=== PATIENT | male | born 1935 | race Caucasian/White ===

== ENCOUNTER 2023-12-31 22:09 | Inpatient (IN) | payer OTHER, SELFPAY ==
[2023-12-31 16:00] VITALS: BP 165/71
[2023-12-31 16:58] VITALS: BP 185/66
[2023-12-31 17:00] VITALS: BP 181/72
--- NOTE | 2023-12-31 17:37 | ED.GENMED ---
History of Present Illness
General
Chief Complaint: Breathing Problem
Time Seen by Provider: 12/31/23 17:06
History of Present Illness
History of Present Illness:
Patient is a 88-year-old male with history of A-fib on Xarelto, hypertension, hyperlipidemia presented to the emergency department shortness of breath. Patient states the past 4 to 5 days has been having dyspnea on exertion. He has been more
tired. Denies any chest pain. No nausea or vomiting. No leg swelling. He is compliant with his Xarelto. He did go to his PCP who advised him to come to the emergency room for further evaluation. He does see cardiology regularly. No weight
gain. No sick contacts. No obvious hematochezia or melena.
Past History
Past History
ED Past Medical History: Arrthythmia (afib), CHF, CVA, HTN, Hypercholesterolemia, UT and Other (Anemia, Diverticulitis, Bowel obstruction, Anemia, Colitis, Ulcers, UTi)
ED Past Surgical History: Appendectomy, Cardiac (CABG) and Orthopedic (Bilateral knee replacement)
Patient has exhibited threatening behavior?: No
Social History
Tobacco: Non-smoker
Alcohol: None
Personal:
Living: alone
Employment: Retired
Phy Exam
Physical Exam
Physical Exam:
GENERAL: in no acute distress
HEENT: normocephalic, extraocular movements intact, moist oral mucosa
NECK: normal inspection
RESPIRATORY: no respiratory distress, clear to auscultation bilaterally
CARDIOVASCULAR: regular rate and rhythm
ABDOMEN/: soft, non-distended, non-tender to palpation, no rebound or guarding
EXTREMITIES: non-tender, no edema/swelling
NEUROLOGIC: awake and alert, moves all extremities
SKIN: warm
Scores
Heart Failure Risk
Heart Failure Risk Score: Not Applicable
Course
Orders/Labs/Results
Orders:
Orders
12/31/23 16:03
Electrocardiogram (*1) Urgent
Reason for Study: Shortness of Breath
EKG- Treatment ONCE
12/31/23 17:15
CR Chest - 2 Views Urgent
Comment:
Reason For Exam: sob
12/31/23 17:39
Complete Blood Count/With Diff Urgent
Comprehensive Metabolic Panel Urgent
NT-proBNP Urgent
Comment: ADD ON
Troponin I Urgent
12/31/23 18:08
COVID-19 Antigen Urgent
Source: Nasal Swab
12/31/23 18:36
Add On- LAB Stat
Tests Added?: bnp
12/31/23 20:28
Ibuprofen [Motrin] 600 mg .ROUTE .STK-MED ONE
12/31/23 20:39
Troponin I Routine
Abnormal Lab Results
12/31/23
17:39
RBC 2.93 L 10^6/uL
(4.70-6.10)
Hgb 8.6 L g/dL
(13.0-18.0)
Hct 26.7 L %
(39.0-52.0)
MCHC 32.2 L g/dL
(33.0-37.0)
Absolute Monos (auto) 1.1 H 10^3/uL
(0.1-0.6)
Monocytes % 11.0 H %
(1.7-9.3)
BUN 29 H mg/dl
(9-20)
Creatinine 1.9 H mg/dL
(0.7-1.3)
Glucose 115 H mg/dl
(70-99)
Total Bilirubin 2.2 H mg/dl
(0.2-1.3)
Troponin I 0.042 H* ng/ml
12/31/23 17:39
12/31/23 17:39
Vital Signs
Initial and Last Documented VS:
Initial Vital Signs
Temp Pulse Resp BP Pulse Ox
98.1 F 66 16 165/71 98
12/31/23 16:00 12/31/23 16:00 12/31/23 16:00 12/31/23 16:00 12/31/23 16:00
Last Documented Vital Signs
Temp Pulse Resp BP Pulse Ox
98.1 F 65 19 181/72 96
12/31/23 16:00 12/31/23 18:45 12/31/23 18:45 12/31/23 17:00 12/31/23 18:50
MDM/Problems Addressed
Differential Diagnosis Includes:
88-year-old male with history of A-fib on Xarelto, hypertension, hyperlipidemia presenting to the emergency department dyspnea on exertion for the past 4 to 5 days. Vitals here are notable for being afebrile normal pulse ox on room air. Lungs are
clear to auscultation bilaterally. Differential is broad but dyspnea on exertion could be his anginal equivalent versus new onset CHF versus pneumonia. Less likely to be PE as he is not hypoxic or tachycardic and he is compliant with Xarelto.
Will check EKG blood work and chest x-ray. Will obtain ambulatory pulse ox.
*Critical Care Note
Total Time (30-74mins, 75-104mins- exclusive of procedures): Not Applicable
Update Note
Update Note:
Ambulatory pulse ox in the 80s with significant respiratory distress. Chest x-ray per my interpretation left-sided pleural effusion. BNP is elevated. Initial troponin is elevated though he does have history of. Will obtain delta troponin.
Discussed with hospitalist for admission who accepted.
ED Attending Note
-
Portions of this chart may have been created with voice recognition software.� Occasional wrong word or��sound alike� substitutions may have occurred due to the inherent limitations of voice recognition software.
Discharge Plan
Departure
Patient Disposition: Admit
Date of Disposition: 12/31/23
Time of Disposition: 20:30
Presentation/result/management discussed w/ accepting MD/DO: Hospitalist
Discharge Problem:
BLUNT (dyspnea on exertion)
Prescriptions:
No Action
ascorbic acid (vitamin C) [Vitamin C] 500 MG tablet
500 mg PO DAILY
finasteride 5 MG tablet
5 mg PO QPM
cholecalciferol (vitamin D3) 1,000 UNITS tablet
1,000 units PO DAILY
cyanocobalamin (vitamin B-12) 1,000 MCG tablet
1,000 mcg PO DAILY
amiodarone [Pacerone] 200 MG tablet
200 mg PO MOWEFR
aspirin 81 MG tablet,delayed release (DR/EC)
81 mg PO DAILY
Rx Instructions:
restart on 03/11
zinc 50 mg Tablet
50 mg PO DAILY
Probiotic
1 tab PO DAILY
atorvastatin 40 mg tablet
40 mg PO QPM
duloxetine 30 mg capsule,delayed release(DR/EC)
30 mg PO DAILY
Xarelto 20 mg Tablet
20 mg PO QPM
amoxicillin-pot clavulanate 500-125 mg Tablet
1 tab PO Q12 Qty: 20 0RF
Referrals:
Da Merritt MD [Family Provider] -
Interventions
Interventions:
*Risk Screen - Suicide Last Done: 12/31/23 18:50
*General Assessment Last Done: 12/31/23 18:50
*Neglect/Abuse Screening Last Done: 12/31/23 18:50
ED- Fall Risk Assessment Last Done: 12/31/23 18:50
ED- Cardiac Assessment Last Done: 12/31/23 18:50
ED- Pulmonary Assessment Last Done: 12/31/23 18:50
Discharge Date and Time
Print Language: SLOVAK
[2023-12-31 17:54] LABS: % Basophils 0.6 % (0-2); % Eosinophils 1.4 % (0-6); % Immature Granulocytes 0.2 % (0-0.5); % Lymphocytes 22.2 % (20.5-51.1); % Neutrophils 64.6 % (42.2-75.2); Absolute Basophils 0.1 10^3/uL (0-0.2); Absolute Eosinophils 0.1 10^3/uL (0-0.7); Absolute Lymphocytes 2.2 10^3/uL (1.2-3.4); Absolute Monocytes 1.1 10^3/uL (0.1-0.6); Absolute Neutrophils 6.4 10^3/uL (1.4-6.5); Hematocrit 26.7 % (39.0-52.0); Hemoglobin 8.6 g/dL (13.0-18.0); Mean Corp Hgb Conc. 32.2 g/dL (33.0-37.0); Mean Corpuscular Hgb 29.4 pg (27.0-31.0); Mean Corpuscular Volume 91.1 fL (80.0-94.0); Mean Platelet Volume 9.7 fL (7.4-10.4); Nucleated Red Blood Cells % 0 % (-); Platelet Count 310 10^3/uL (130-400); Red Blood Cell Count 2.93 10^6/uL (4.70-6.10); Red Cell Dist. Width 13.5 % (11.5-14.5); White Blood Cell Count 9.9 10^3/uL (4.8-10.8)
[2023-12-31 18:06] LABS: ALT (SGPT) 15 U/L (0-50); AST (SGOT) 26 U/L (17-59); Albumin 4.4 g/dl (3.5-5.0); Alkaline Phosphatase 119 U/L (38-126); Blood Urea Nitrogen 29 mg/dl (9-20); Calcium 8.7 mg/dl (8.4-10.2); Carbon Dioxide 24 mmol/L (22-30); Chloride 105 mmol/L (98-107); Glucose 115 mg/dl (70-99); Potassium 4.8 mmol/L (3.5-5.1); Sodium 141 mmol/L (135-145); Total Bilirubin 2.2 mg/dl (0.2-1.3); Total Protein 6.9 g/dl (6.3-8.2); eGFR 33.72
[2023-12-31 18:22] LABS: Troponin I 0.042 ng/ml
[2023-12-31 18:57] LABS: COVID-19 Antigen Negative (Negative)
[2023-12-31 20:04] LABS: NT-proBNP 2770 pg/ml
[2023-12-31] MEDS: TYLENOL 650 MG PO (20:33)
[2023-12-31 21:09] LABS: Troponin I 0.045 ng/ml
[2023-12-31 21:51] VITALS: BP 176/63
[2023-12-31 22:00] VITALS: BP 164/76
--- NOTE | 2023-12-31 22:44 | HPS.HSE ---
Family Physician
-
Family Physician: Da Merritt MD
Chief Complaint
-
SOB
History of Present Illness
Patient is an 88y M with PMH significant for ASCVD, hypertension and A-Fib who presents to ED complaining of shortness of breath with activity. Patient states that his symptoms have been present for the past week. He denies any associated chest
pain, palpitations, etc. He notes that he feels lightheaded and 'faint' during these episodes as well. He also complains of posterior headache. He denies any cough, fevers / chills or other recent symptoms. No recent medication changes.
Patient states that dyspnea is noted with any activity - even walking across a flat surface. If he is at rest he has no symptoms. He denies orthopnea, edema or weight gain.
Medical History
Past Medical History
Past Medical History: Reports Other
Additional Past Medical History:
ASCVD
Paroxysmal Atrial Fibrillation
Hyperlipidemia
Paraesophageal Hernia / Gastric Volvulus
BPH
Depression
Past Surgical History: Reports Other
Additional Past Surgical History:
CABG
Bilateral TKA
RUE Bone Stimulator
Paraesophageal Hernia Repair / Gastropexy
Cholecystectomy
Social History
Tobacco: Former Smoker (Quit many years ago.)
Alcohol: None
Drug: None
Family History
Family History: Other (Father: CAD Mother: Longevity)
Allergies / Home Medications
Allergies reflects when Allergies were last updated in [facility].
Home Medications with original date entered in [facility]
Allergy/Medication List:
Allergies
Allergy/AdvReac Type Severity Reaction Status Date / Time
No Known Allergies Allergy Verified 12/31/23 16:02
Home Medications
ascorbic acid (vitamin C) 500 mg tablet (Vitamin C) 500 mg PO DAILY Supplement 11/22/17
cholecalciferol (vitamin D3) 25 mcg (1,000 unit) tablet 1,000 units PO DAILY Supplement 03/05/20
finasteride 5 mg tablet 5 mg PO HS Urinary issue 03/05/20
cyanocobalamin (vitamin B-12) 1,000 mcg tablet 1,000 mcg PO DAILY Supplement 01/25/21
amiodarone 200 mg tablet (Pacerone) 200 mg PO MOWEFR Arrhythmia 11/02/21
aspirin 81 mg tablet,delayed release 81 mg PO DAILY Blood clot prevention/tx 11/02/21
atorvastatin 40 mg tablet 40 mg PO HS High Cholesterol 12/19/22
rivaroxaban 20 mg tablet (Xarelto) 20 mg PO QPM Blood Clot Prevention/Tx 12/20/22
Lactobac no.2-Bifidobac no.1-S. thermo 112.5 billion cell capsule (Visbiome) 1 cap PO DAILY 12/31/23
cetirizine 10 mg tablet (Zyrtec) 10 mg PO DAILY 12/31/23
duloxetine 40 mg capsule,delayed release 40 mg PO DAILY 12/31/23
magnesium oxide 500 mg PO DAILY 12/31/23
zinc sulfate 50 mg zinc (220 mg) tablet 50 mg PO DAILY 12/31/23
Review of Systems
-
History Source: Patient
A 12 point ROS was completed and negative except as noted: Yes
Constitutional: Reports Fatigue; Denies Fever, Weight Gain, Weight Loss or Chills
EENT: Denies Sore Throat
Respiratory: Reports Trouble Breathing; Denies Cough or Hemoptysis
Cardiac: Denies Chest Pain, Diaphoresis, Palpitations or Syncope
Abdomen/GI: Denies Abdominal Pain, Nausea, Vomiting or Diarrhea
: Denies Dysuria, Frequency or Flank Pain
Musculoskeletal: Reports Other (Back Pain); Denies Joint Pain or Edema
Neurological: Reports Dizzy and Headache; Denies Weakness or Numbness
Psych: Denies Depression or Anxiety
Physical Exam
Vital Signs
Vital Signs
Temp Pulse Resp BP Pulse Ox
98.1 F 44 25 164/76 100
12/31/23 16:00 12/31/23 22:15 12/31/23 22:15 12/31/23 22:00 12/31/23 22:15
Physical Exam
General: Other (88y M in no acute distress.)
HEENT: Moist mucous membranes and PERRLA
Respiratory: Other (Decreased BS with few basilar rales on the L. Otherwise clear.)
Cardiac: S1/S2, Irregular Rhythm and Murmur (III/ CAT)
GI: Soft, Non Tender, Non Distended and Normal Bowel Sounds
Musculoskeletal: No Clubbing, No Cyanosis and No Edema
Neuro: AO x 3
Laboratory Results
-
12/31/23 17:39
12/31/23 17:39
Laboratory Results
Total Bilirubin 2.2 mg/dl (0.2-1.3) H 12/31/23 17:39
AST 26 U/L (17-59) 12/31/23 17:39
ALT 15 U/L (0-50) 12/31/23 17:39
Alkaline Phosphatase 119 U/L (38-126) 12/31/23 17:39
Troponin I 0.045 ng/ml H* 12/31/23 20:35
Impression/Plan
-
A/P: Patient is an 88y M with PMH significant for ASCVD, hypertension and A-Fib who presents to ED complaining of BLUNT x 1 week.
BLUNT
Left Pleural Effusion
- Admit for further evaluation and treatment.
- ? if dyspnea appreciated with exertion is due to new L pleural effusion seen on CXR.
- Trial of IV diuresis and follow for any clinical changes.
- Cardiology evaluation / update Echo.
- Consider IR evaluation for thoracentesis.
Paroxysmal Atrial Fibrillation
- Patient in A-Fib / flutter in the ED. He denies any history of this - though it is clearly documented in his prior records.
- Monitor on telemetry.
- Continue Xarelto for stroke risk reduction.
- Cardiology evaluation as noted above.
YARA
- SCr = 1.9 compared to prior baseline of 1.1.
- ? prerenal etiology secondary to mild CHF.
- Follow for changes with trial of IV diuresis.
Normocytic Anemia
- Somewhat difficult to assess chronicity. Has had widely variable Hgb in the past - though most recent were in similar range.
- Patient has been taking ibuprofen fairly regularly for back pain and is also on Xarelto.
- Would avoid further NSAIDs / nephrotoxic medications.
- Heme test stools.
- Check iron studies, etc.
- Follow for changes in H&H.
ASCVD
- Stable. No complaints of chest pain.
- Troponin non-normal, but no EG changes c/w acute ischemia.
- Follow troponin for any changes and monitor for any new / worsening symptoms.
- Continue ASA, Xarelto, statin, etc.
BPH
- Stable. Continue Proscar.
- Bladder scan protocol.
DVT Prophylaxis: On Xarelto
Code Status: Full Code
--- NOTE | 2023-12-31 23:00 | PTCARENOTE ---
Received patient from ED via stretcher. Patient ambulated from stretcher to bed with a standby assist. No current complaints of pain, patient slightly BLUNT. Oriented to room and placed call riley within reach.
[2023-12-31 23:04] VITALS: BMI 23.5
[2023-12-31 23:05] VITALS: BP 185/73; BMI 23.5
[2023-12-31] MEDS: LIPITOR 40 MG PO (23:43)
[2023-12-31] MEDS: PACERONE 200 MG PO (23:44)
[2023-12-31] MEDS: PROSCAR 5 MG PO (23:44)
[2023-12-31 23:58] LABS: Iron 26 ug/dl (49-181); Troponin I 0.049 ng/ml
[2024-01-01] VITALS (11 sets, daily range): BP systolic 124–188; BP diastolic 51–89; O2SAT 99; BMI 23.5
[2024-01-01 00:07] LABS: Percent Saturation 7 % (20-50); Total Iron Binding Capacity 350 ug/dl (261-462)
[2024-01-01 01:00] LABS: Free T4 1.12 ng/dl (0.78-2.19)
[2024-01-01 05:45] LABS: Hemoglobin 7.4 g/dL (13.0-18.0); Mean Corp Hgb Conc. 32.2 g/dL (33.0-37.0); Mean Corpuscular Hgb 28.2 pg (27.0-31.0); Mean Corpuscular Volume 87.8 fL (80.0-94.0); Mean Platelet Volume 9.3 fL (7.4-10.4); Platelet Count 298 10^3/uL (130-400); Red Blood Cell Count 2.62 10^6/uL (4.70-6.10); Red Cell Dist. Width 13.4 % (11.5-14.5); White Blood Cell Count 8.1 10^3/uL (4.8-10.8)
[2024-01-01 06:17] LABS: Blood Urea Nitrogen 28 mg/dl (9-20); Calcium 8.9 mg/dl (8.4-10.2); Carbon Dioxide 22 mmol/L (22-30); Chloride 108 mmol/L (98-107); Estimated Creatinine Clearance 31 ml/min; Glucose 115 mg/dl (70-99); HDL Cholesterol 34 mg/dl; LDL Cholesterol, Calculated 52 mg/dl; Potassium 4.7 mmol/L (3.5-5.1); Sodium 143 mmol/L (135-145); Total Cholesterol 109 mg/dl (50-199); Triglyceride 119 mg/dl (10-149); Very Low Density Lipoprotein 23 mg/dl (0-30); eGFR 41.44
[2024-01-01 06:18] LABS: Troponin I 0.062 ng/ml
[2024-01-01] MEDS: CYMBALTA DELAYED RELEASE 40 MG PO (09:58)
--- NOTE | 2024-01-01 10:56 | W.PN.HOSP.TC ---
Today's Communication/Plan
-
Transfused
IV iron.
Hold Xarelto and aspirin.
GI evaluation.
IV PPI
Hold further Lasix.
Assessment / Plan
Assessment / Plan
Impression:
Presentation with exertional dyspnea.
Iron deficiency anemia.
Non-[place] troponin elevation
Small left pleural effusion
YARA
Subclinical hypothyroidism
Other conditions:
ASCVD.
Paroxysmal atrial fibrillation/flutter therapy
Anticoagulation with Xarelto.
BPH.
History of colitis.
History of community-acquired pneumonia.
Plan:
Exertional dyspnea. Patient reports worsening over the last week or so
Denies any chest pain or palpitations.
Stable respiratory status with no requirements for supplemental oxygen.
Chest x-ray with very minimal pleural effusions otherwise clear lung [place].
CHF BNP elevated, although not higher than baseline.
Symptomatic acute on chronic normocytic anemia with iron deficiency.
Reports occasional hematochezia while at home.
No BM since presentation.
Hemoglobin drifting down to 7s.
Hold Xarelto and aspirin
GI consultation
IV PPI.
Transfuse 1 unit of packed red blood cells and follow hemoglobin
IV iron
Check EPO level
Non-[place] troponin elevation.
ASCVD
Chest pain-free.
ECG with a flutter.
Update echocardiogram.
Continue statin
Clinically no evidence of volume overload.
Hold further diuresis
Paroxysmal atrial fibrillation/flutter.
Continue amiodarone
Hold Xarelto due to severe symptomatic anemia pending GI evaluation.
YARA.? CKD.
Creatinine 1.9�1.6.
Check urinalysis for sediment.
Bladder scan
Renal sonogram
Monitor creatinine while holding further diuresis. If further elevation consider nephrology consultation.
Subclinical hypothyroidism with TSH 5.5. Normal free T4 at 1.12. Suspect related to amiodarone
Follow-up TFT as outpatient
BPH
- Stable. Continue Proscar.
- Bladder scan protocol.
Full code.
DVT prophylaxis mechanical while holding Xarelto
Anticipated Discharge: 24 - 48 hours
Subjective/Interval History
-
Date of Service: January 01, 2024
Objective Data
-
Labs:
Laboratory Results
01/01/24
05:38
WBC 8.1
Hgb 7.4 L
Hct 23.0 L
Plt Count 298
Sodium 143
Potassium 4.7
Chloride 108 H
Carbon Dioxide 22
BUN 28 H
Creatinine 1.6 H
Glucose 115 H
Calcium 8.9
Vital Signs:
Vital Signs
Temp Pulse Resp BP Pulse Ox
98.2 F 66 20 169/78 94
01/01/24 07:43 01/01/24 07:43 01/01/24 07:43 01/01/24 07:43 01/01/24 07:43
I&O
12/31/23 01/01/24 01/02/24
06:59 06:59 06:59
Intake Total 480 / 480
Output Total 350 / 350
Balance 130 / 130
Physical Exam
-
General: Well Developed, Well Nourished and No Apparent Distress
HEENT: Normocephalic and Atraumatic; Negative Oxygen
Respiratory: Clear to Auscultation and Wheezes; Negative Rhonchi
Cardiac: Regular Rhythm and S1/S2; Negative Murmur
GI: Soft, Nontender, Nondistended and Normal Bowel Sounds
Musculoskeletal: No Clubbing, No Cyanosis and No Edema
Neuro: Awake
Psych: Calm
--- NOTE | 2024-01-01 10:59 | CON.GI ---
Addendum entered and electronically signed by Jazmín Main DO 01/01/24 14:44:
The patient was seen and examined by me independently in collaboration with the nurse practitioner.
Past medical history/social history/medications/allergies/family history reviewed.
Lab data and imaging data reviewed.
Raul Nickerson is an 88 y.o. male w/ pmhx Afib on xarelto, HTN, CAD, HLD, hx diverticulitis/diverticulosis, paraesophageal hernia c/b obstruction s/p repair and gastropexy in 2021 gallstone pancreatitis s/p cholecystectomy in October 2021, chronic iron
deficiency anemia admitted with symtpomatic anemia, found to have a hemoglobin of 8.6, which subsequently decreased to 7.4. He admits to daily NSAID use for the last week for Migraines. Admitted to in 11/2022 for abdominal pain 2/2 mild acute
diverticulitis vs. overflow diarrhea in setting of chronic constipation. He had reported hematochezia at that time, presumed due to hemorrhoids. Endoscopic evaluation deferred at that time. He had bidrectional endoscopy in 2021 which was unrevealing
for source of chronic ASHLEY, referred to hematology for IV infusions. No VCE performed for small bowel evaluation, however, high suspicion for small bowel AVMs.
Hgb on 12/19/22 10.1 at time of last GI evaluation, decreased to 8.4 --> 9.6 --> 8.3.
On arrival Hgb 8.6 with repeat of 7.4 today, Plt 87. BUN 28/Cr. 1.6. He is also noted to have elevated troponin that is rising, 0.042 --> .045 --> .049 --> .062. 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
Plan/Recommendations:
-s/p transfusion with 1 unit PRBC
-maintain 2 large-bore peripheral gauge IVs, active T&C
-PPI BID, IVF
-c/w IV Iron
-Xarelto (last dose 12/30?) and ASA held
-Recommend Enteroscopy tomorrow, if negative for source of GI bleeding, can consider repeat colonoscopy given last performed in 2021, ultimately, would require VCE (inpatient vs. outpatient based on clincial course and stability of hemoglobin). He
will continue to be at risk for recurrent GI bleeding while he remains on anticoagulation
Addendum entered and electronically signed by TASHI Maguire 01/01/24 13:44:
plan for EGD with enteroscopy in am for transfusion today
Original Note:
Consultation
-
Date/Time Consultation Requested: 01/01/24 1050
Date/Time Consultation Performed: 01/01/24 1130
Requesting Provider: Gildardo Baker MD
Performing Provider: TASHI Markham, Magdalena Main DO
Reason for Consultation: anemia
Medical History
Chief Complaint / HPI
Chief Complaint: abdominal pain
History of Present Illness:
The pt is an 87 yo male with a PMH significant for Afib on Xarelto, HTN, CAD with prior CABG, HLD, diverticulitis/diverticulosis, paraesophageal hernia with obstruction s/p repair and gastropexy 2021, gallstone pancreatitis s/p cholecystectomy in
October 2021, colon polyps with onset of shortness of breath. On admission noted with hbg 8.6 with drop to 7.4 after admission. He was also noted with small pleural effusion, BNP 2770,and elevated troponin. In reviewing with patient he followed
closely with PCP Dr. Palomino and Dr. Grande from cardiology. He admits to recent NSAID use for neck/head pain about 3-6 tablets daily for last month. He also admits to darker stools and constipation on Miralax daily but denies dysphagia, GERD,
nausea, vomiting, abdominal pain, diarrhea, or red blood in stools. Last colonoscopy 2019 with TA polyp, diverticulosis, hemorrhoids and EGD with tortuous esophagus, 10cm paraesophageal hernia with few erosion in hernia sac.
Past Medical History
Past Medical History: Arrhythmias (PAF), HTN, Hypercholesterolemia, Psychiatric (depression ) and Other (ASCVD, paraesophageal hernia, gastric volvulus, gallstone pancreatitis, hard of hearing )
Past Surgical History: Cardiac (CABG), Cholecystectomy, Orthopedic (bilateral TKA, bone stimulator RUE) and Other (paraoesophageal hernia repair with gastropexy, bone stimulator)
Social History
Tobacco: Former Smoker (only in teen years )
Alcohol: Occasional (rare )
Drug: None
Living: With Family (daughter alice )
Employment: Retired
Family History
Family History: Other (no family hx colon CA or polyps )
Allergies / Home Medications
Allergy/AdvReac Type Severity Reaction Status Date / Time
No Known Allergies Allergy Verified 12/31/23 16:02
�Medication �Instructions �Recorded
ascorbic acid (vitamin C) 500 mg 500 mg PO DAILY Supplement 11/22/17
tablet (Vitamin C)
cholecalciferol (vitamin D3) 25 1,000 units PO DAILY Supplement 03/05/20
mcg (1,000 unit) tablet
finasteride 5 mg tablet 5 mg PO HS Urinary issue 03/05/20
cyanocobalamin (vitamin B-12) 1,000 mcg PO DAILY Supplement 01/25/21
1,000 mcg tablet
amiodarone 200 mg tablet (Pacerone) 200 mg PO MOWEFR Arrhythmia 11/02/21
aspirin 81 mg tablet,delayed 81 mg PO DAILY Blood clot 11/02/21
release prevention/tx
atorvastatin 40 mg tablet 40 mg PO HS High Cholesterol 12/19/22
rivaroxaban 20 mg tablet (Xarelto) 20 mg PO QPM Blood Clot 12/20/22
Prevention/Tx
Lactobac no.2-Bifidobac no.1-S. 1 cap PO DAILY 12/31/23
thermo 112.5 billion cell capsule
(Visbiome)
cetirizine 10 mg tablet (Zyrtec) 10 mg PO DAILY 12/31/23
duloxetine 40 mg capsule,delayed 40 mg PO DAILY 12/31/23
release
magnesium oxide 500 mg PO DAILY 12/31/23
zinc sulfate 50 mg zinc (220 mg) 50 mg PO DAILY 12/31/23
tablet
Review of Systems
-
History Source: Patient
Constitutional: Reports No Symptoms
EENT: Reports No Symptoms
Respiratory: Reports No Symptoms
Cardiac: Reports No Symptoms
Abdomen/GI: Reports Constipated and Other (darker stools )
: Reports No Symptoms
Musculoskeletal: Reports No Symptoms
Skin: Reports No Symptoms
Neurological: Reports Headache (with back issue on NSAIDS )
Endocrine: Reports No Symptoms
Hematologic/Lymphatic: Reports No Symptoms
Vital Signs
Temp Pulse Resp BP Pulse Ox
98.2 F 66 20 169/78 94
01/01/24 07:43 01/01/24 07:43 01/01/24 07:43 01/01/24 07:43 01/01/24 07:43
Physical Exam
Exam
General: Well Developed, Well Nourished and No Apparent Distress
HEENT: Normocephalic and Anicteric
Respiratory: Other (decreased bases )
Cardiac: Regular Rhythm
GI: Soft, Non Tender and Non Distended
Rectal: Brown (trace heme + stool)
Musculoskeletal: No Clubbing and No Cyanosis
Skin: Warm and Dry
Neuro: Awake, Alert and AO x 3
Psych: Calm
Results
WBC 8.1 10^3/uL (4.8-10.8) 01/01/24 05:38
Hgb 7.4 g/dL (13.0-18.0) L 01/01/24 05:38
Hct 23.0 % (39.0-52.0) L 01/01/24 05:38
MCV 87.8 fL (80.0-94.0) 01/01/24 05:38
Plt Count 298 10^3/uL (130-400) 01/01/24 05:38
Absolute Neuts (auto) 6.4 10^3/uL (1.4-6.5) 12/31/23 17:39
Sodium 143 mmol/L (135-145) 01/01/24 05:38
Potassium 4.7 mmol/L (3.5-5.1) 01/01/24 05:38
Chloride 108 mmol/L (98-107) H 01/01/24 05:38
Carbon Dioxide 22 mmol/L (22-30) 01/01/24 05:38
BUN 28 mg/dl (9-20) H 01/01/24 05:38
Creatinine 1.6 mg/dL (0.7-1.3) H 01/01/24 05:38
Calcium 8.9 mg/dl (8.4-10.2) 01/01/24 05:38
Total Bilirubin 2.2 mg/dl (0.2-1.3) H 12/31/23 17:39
AST 26 U/L (17-59) 12/31/23 17:39
ALT 15 U/L (0-50) 12/31/23 17:39
Alkaline Phosphatase 119 U/L (38-126) 12/31/23 17:39
Diagnostic Image Results:
Prior GI Procedures:
EGD: 2019 [facility] with tortuous esophagus, 10cm paraesophageal hernia with few erosion in hernia sac.
Colonoscopy: [facility] with TA polyp, diverticulosis, hemorrhoids and
Assessment / Plan
-
The pt is an 87 yo male with a PMH significant for Afib on Xarelto, HTN, CAD with prior CABG, HLD, diverticulitis/diverticulosis, paraesophageal hernia with obstruction s/p repair and gastropexy 2021, gallstone pancreatitis s/p cholecystectomy in
October 2021, colon polyps with onset of shortness of breath. On admission noted with hbg 8.6 with drop to 7.4 after admission. He was also noted with small pleural effusion, BNP 2770,and elevated troponin. In reviewing with patient he followed
closely with PCP Dr. Palomino and Dr. Grande from cardiology. He admits to recent NSAID use for neck/head pain about 3-6 tablets daily for last month. He also admits to darker stools recently and constipation on Miralax daily but denies
dysphagia, GERD, nausea, vomiting, abdominal pain, diarrhea, or red blood in stools. Last colonoscopy 2019 with TA polyp, diverticulosis, hemorrhoids and EGD with tortuous esophagus, 10cm paraesophageal hernia with few erosion in hernia sac. Pt
also noted with iron 26, TIBC 350, sat 7
prior hbg with PCP 03/2023 13.7
08/2023-
-shortness of breath
-anemia with trace heme + brown stool
-recent increased NSAID use
-small pleural effusion on CXR
-elevated troponin
- paraesophageal hernia with obstruction s/p repair and gastropexy 2021
other med problems:
-afib on xarelto
-HTN
-CAD with prior CABG
-Hyperlipidemia
-diverticulitis
-hx GS panc with prior rodrigo
-colon polyps
PLAN:
etiology of shortness of breath related to anemia related to PUD with recent NSAID use and drop in hbg from on August , cardiac related with mild trop/BNP elevation vs other
current rectal with brown trace heme + stools
obtained baseline hbg over last year from PCP-- noted hbg 13 09/11/23
Xarelto hold
cont PPI daily
discussed NSAID avoidance
will review with Dr. Main for EGD 01/01
cont diet for today
reviewed with Dr. Byrd
updated daughter Evangelina on tentative plan for EGD
-
-
Thank you for consultation and allowing me to participate in the patient's care. Please call the mailing section clerk GI physician during the after hours with any questions or concerns.
--- NOTE | 2024-01-01 11:42 | CON.CAR ---
Addendum entered and electronically signed by Raul Byrd MD 01/01/24 14:02:
Creatinine has improved to 1.6. Will give Lasix after transfusion. May need to consider decreasing Xarelto dose if remains with renal insufficiency.
Addendum entered and electronically signed by Raul Byrd MD 01/01/24 13:59:
I saw and examined the patient.
The COPY WORKER or PA's note was reviewed and I agree with the note.
Comment: General: Well developed, well nourished in NAD.
Neck: Supple, no JVD, HJR, carotids +2 B/L, no bruits bilaterally.
Heart: Non displaced PMI, RRR, 2/6 basal systolic murmur, No S3, S4, no rubs.
Lungs: Scattered rhonchi
Extremities: No clubbing, cyanosis or edema bilaterally.
Neuro: Grossly nonfocal, awake, alert and oriented x3.
Leonard has a history of atrial fibrillation/atrial flutter previously on sotalol and now on amiodarone Sunday and Sunday and chronic Xarelto, GI bleed 2019. He presented with dyspnea on exertion over the last week and found to have a
hemoglobin of 7.4. Cardiology consulted for acute diastolic CHF with small left pleural effusion and proBNP of 2770. Also found to be in rate controlled atrial flutter which was present on office visit in November 2023.
Stable cardiology status for GI procedures. Endoscopy is planned. Of note echocardiogram with moderate to severe aortic stenosis which has worsened since 2021. There may be an element of CHF as well. Will treat with IV Lasix. Suspect most of
symptoms are due to severe anemia. Also patient remains in rate controlled atrial flutter with unusual dosing Sunday amiodarone. Might consider discontinuing amiodarone at some point if remains in atrial flutter or could consider
eventual cardioversion when anemia has resolved/been treated
Addendum entered and electronically signed by Loida Mars PA-C 01/01/24 13:40:
.
Original Note:
Consultation
Consultation Request
Date/Time Consultation Performed: 01/01/24
Requesting Provider: Dr. Baker
Performing Provider: Loida Mars PA-C for Dr. Byrd
Reason for Consultation: SOB, concern for CHF
Medical History
-
Chief Complaint: SOB
History of Present Illness:
Patient is an 88 yo M with PMH of paroxysmal atrial fibrillation/atrial flutter previously on sotalol, however now on amiodarone 200 mg Sunday, chronic Xarelto therapy, history of GI bleed in 2019 who presents to [facility]
for evaluation of dyspnea on exertion over the last week or so. He reports associated dizziness. He denies shortness of breath at rest. Denies chest pain, weight gain, lower extremity edema. He does state he had a 'golf ball sized' fluid
collection in his left hand which he states 'then moved to my right leg' and now is reportedly improved. He denies chronic diuretic therapy. He does report dark stools recently, however denies abdominal pain. Cardiology consulted due to concern
for component of CHF as etiology of dyspnea on exertion. Chest x-ray with small left pleural effusion. proBNP 2770. Of note hemoglobin 7.4. He has been using some NSAIDs recently for 'migraine' headaches over the last several weeks
PMH:
-paroxysmal atrial fibrillation/atrial flutter
-chronic amiodarone therapy
-chronic xarelto therapy
-CAD s/p CABG 06/2006 with FORD to LAD and SVG sequential to OM-1 and PDA
-CAD s/p Taxus to SVG to RCA 06/2006
-LAFB/RBBB
-mild
-HLD
-BPH
-GERD
-anxiety/depression
-past ETOH abuse
-CHICKALOON
-History of paraesophageal hernia repair
-h/o anemia/GI bleed felt to be secondary to Aleksandr ulcers 02/2020
Past Medical History
Past Medical History: Other (in HPI)
Social History
Tobacco: Former Smoker (remote)
Personal:
Living: With Family (daughter and son in law)
Employment: Retired
Family History
Family History: CAD
Allergies / Home Medications
Allergy/AdvReac Type Severity Reaction Status Date / Time
No Known Allergies Allergy Verified 12/31/23 16:02
�Medication �Instructions �Recorded �Confirmed �Type
ascorbic acid (vitamin C) 500 mg 500 mg PO DAILY Supplement 11/22/17 12/31/23 History
tablet (Vitamin C)
cholecalciferol (vitamin D3) 25 1,000 units PO DAILY Supplement 03/05/20 12/31/23 History
mcg (1,000 unit) tablet
finasteride 5 mg tablet 5 mg PO HS Urinary issue 03/05/20 12/31/23 History
cyanocobalamin (vitamin B-12) 1,000 mcg PO DAILY Supplement 01/25/21 12/31/23 History
1,000 mcg tablet
amiodarone 200 mg tablet (Pacerone) 200 mg PO MOWEFR Arrhythmia 11/02/21 12/31/23 History
aspirin 81 mg tablet,delayed 81 mg PO DAILY Blood clot 11/02/21 12/31/23 History
release prevention/tx
atorvastatin 40 mg tablet 40 mg PO HS High Cholesterol 12/19/22 12/31/23 History
rivaroxaban 20 mg tablet (Xarelto) 20 mg PO QPM Blood Clot 12/20/22 12/31/23 History
Prevention/Tx
Lactobac no.2-Bifidobac no.1-S. 1 cap PO DAILY 12/31/23 12/31/23 History
thermo 112.5 billion cell capsule
(Visbiome)
cetirizine 10 mg tablet (Zyrtec) 10 mg PO DAILY 12/31/23 12/31/23 History
duloxetine 40 mg capsule,delayed 40 mg PO DAILY 12/31/23 12/31/23 History
release
magnesium oxide 500 mg PO DAILY 12/31/23 12/31/23 History
zinc sulfate 50 mg zinc (220 mg) 50 mg PO DAILY 12/31/23 12/31/23 History
tablet
Review of Systems
-
History Source: Patient
All other systems: Negative unless noted
Physical Exam
Vital Signs
Temp Pulse Resp BP Pulse Ox
98 F 67 18 124/54 96
01/01/24 11:12 01/01/24 11:12 01/01/24 11:12 01/01/24 11:12 01/01/24 11:12
Lab Results
01/01/24 05:38
01/01/24 05:38
Troponin I 0.062 ng/ml H* D 01/01/24 05:38
Qkp-B-Obywzpiiolc Pept 2770 pg/ml 12/31/23 17:39
Mah-L-Eqxgernjprb Pept Cancelled 12/31/23 17:39
Physical Exam
General: No Apparent Distress, Comfortable and Other (sitting in chair)
HEENT: Normocephalic, Anicteric and Moist Mucous Membranes
Respiratory: Clear and Non Labored Respirations
Cardiac: S1/S2, Irregular Rhythm and Murmur
GI: Soft, Non Tender, Non Distended and Normal Bowel Sounds
Musculoskeletal: No Clubbing, No Cyanosis and No Edema
Skin: Warm, Dry and Other (bandage to RLE)
Neuro: AO x 3
Impression / Plan
-
Primary Technical Documentation Specialist: Dr. Lyons
Assessment:
-Presentation with BLUNT
-anemia with dark stools, concern for GI bleed
-Concern for acute CHF
-YARA
-Elevated troponin, suspected nonischemic myocardial injury
-subclinical hypothyroidism
-paroxysmal atrial fibrillation/atrial flutter
-chronic amiodarone therapy
-chronic xarelto therapy
-Chronic right bundle branch block
-CAD s/p CABG 06/2006 with FORD to LAD and SVG sequential to OM-1 and PDA
-CAD s/p Taxus to SVG to RCA 06/2006
-LAFB/RBBB
-mild
-HLD
-BPH
-GERD
-anxiety/depression
-past ETOH abuse
-CHICKALOON
-h/o anemia/GI bleed felt to be secondary to Aleksandr ulcers 02/2020
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
Echo 03/2022 at outside hospital: EF 60 to 65%, mild to moderate concentric LVH, biatrial enlargement, severe MAC, mild MS, trace MR, moderate TR, PAP 45 to 50 mmHg, mild pulmonary hypertension, mild to moderate
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
Plan:
-Patient presents to [facility] with complaints of dyspnea on exertion over the last week or so.
-Initially concern for acute CHF with proBNP of 2770 and small left pleural effusion by chest x-ray, however also with acute on chronic anemia and complaints of dark stools
-records from Dr. Lyons's office obtained and reviewed including last office visit and EKG 12/06/23, echo 04/10/22, blood work 03/31/23. hgb at time of blood work was 13.8, now 7.4
-GI consulted
-Holding outpatient Xarelto. would continue asa as able
-For transfusion today. consider 20 mg IV Lasix post transfusion and reassess volume status in a.m.
-Creatinine was elevated at 1.9 on arrival, trending down
-Last echo from 03/2022 with results as above
-Also by EKG noted to be in rate controlled atrial flutter with 4-1 AV conduction, consistent with last EKG from 12/06/[address] Lyons's office. from OP monitor in 2022, burden of AF was 0.17%.
-Currently on outpatient amiodarone 200 mg Sunday dosing. HRs controlled on review of tele
-consult wound care for eval of RLE wound
-avoid NSAIDs, possibly related to GI bleed and YARA. treatment of recent migraine headaches per primary service
-trops relatively flat, peaked at 0.062. suspect nonischemic myocardial injury in setting of anemia, YARA.
-OP follow up with Dr. Lyons
-Discussed with hospitalist
Data Reviewed
-
EKG: Tracing Personally Visualized and interpreted
Radiology: Report Reviewed by me
Medical Tests (Nuc Med, Echo etc): Report Reviewed by me
Labs: Labs Reviewed by me
Old Records: Reviewed
[2024-01-01] MEDS: NSS (PRESERVATIVE FREE) 10 ML IV (11:45)
[2024-01-01] MEDS: PROTONIX IV 40 MG IV (11:45)
[2024-01-01 12:04] LABS: Troponin I 0.053 ng/ml
--- NOTE | 2024-01-01 14:42 | CM ---
grain manager reviewed patient's chart and met with patient and patient lives with daughter and son in law in a 2 story home, patient is independent with adl's and uses a walker with ambulation, patient is currently 94% on room air. Per patient he
had DHVN in past when he injured his back.
Pharmacy; [facility]
PCP: Dr. Merritt
Plan; Home when stable, no needs.
[2024-01-01 16:24] LABS: Urine Albumin Trace (Neg - Trace); Urine Bilirubin Negative (Negative); Urine Character Clear (Clear); Urine Color Yellow; Urine Glucose Negative (Negative); Urine Ketone Negative (Negative); Urine Leukocyte Negative (Negative); Urine Nitrite Negative (Negative); Urine Occult Blood Negative (Negative); Urine Specific Gravity 1.015 (<1.030); Urine Urobilinogen Negative (Neg - 1+)
[2024-01-01] MEDS: LASIX 20 MG IV (17:03)
[2024-01-01] MEDS: FERRLECIT 110 MG IV (17:03)
[2024-01-01] MEDS: LIPITOR 40 MG PO (19:36)
[2024-01-01] MEDS: PROSCAR 5 MG PO (19:36)
[2024-01-02] VITALS (14 sets, daily range): BP systolic 105–180; BP diastolic 48–92; PULSE 61; O2SAT 97; BMI 23.1
[2024-01-02 08:15] LABS: Blood Urea Nitrogen 27 mg/dl (9-20); Calcium 8.8 mg/dl (8.4-10.2); Carbon Dioxide 24 mmol/L (22-30); Chloride 108 mmol/L (98-107); Estimated Creatinine Clearance 34 ml/min; Glucose 110 mg/dl (70-99); Potassium 4.3 mmol/L (3.5-5.1); Sodium 142 mmol/L (135-145); eGFR 44.78
[2024-01-02 08:18] LABS: % Basophils 0.6 % (0-2); % Eosinophils 2.7 % (0-6); % Immature Granulocytes 0.2 % (0-0.5); % Lymphocytes 23.1 % (20.5-51.1); % Monocytes 13.3 % (1.7-9.3); % Neutrophils 60.1 % (42.2-75.2); Absolute Basophils 0.1 10^3/uL (0-0.2); Absolute Eosinophils 0.2 10^3/uL (0-0.7); Absolute Monocytes 1.2 10^3/uL (0.1-0.6); Absolute Neutrophils 5.2 10^3/uL (1.4-6.5); Hematocrit 27.8 % (39.0-52.0); Hemoglobin 9.2 g/dL (13.0-18.0); Mean Corp Hgb Conc. 33.1 g/dL (33.0-37.0); Mean Corpuscular Hgb 29.1 pg (27.0-31.0); Mean Platelet Volume 9.7 fL (7.4-10.4); Nucleated Red Blood Cells % 0 % (-); Platelet Count 282 10^3/uL (130-400); Red Blood Cell Count 3.16 10^6/uL (4.70-6.10); Red Cell Dist. Width 13.6 % (11.5-14.5); White Blood Cell Count 8.6 10^3/uL (4.8-10.8)
[2024-01-02] MEDS: NSS (PRESERVATIVE FREE) 10 ML IV (08:58)
[2024-01-02] MEDS: CYMBALTA DELAYED RELEASE 40 MG PO (08:58)
[2024-01-02] MEDS: PROTONIX IV 40 MG IV (08:58)
--- NOTE | 2024-01-02 11:14 | W.PN.CARDCBS ---
Addendum entered and electronically signed by Carlos Gimenez DO 01/02/24 16:50:
I saw and examined the patient 10:45AM 01/02/2024.
The Tester Regulator's note was reviewed and I agree with the note.
Comment:
Plan:
For EGD. Cont to monitor H/H
Xarelto has been held
Cont amiodarone for rate control
Monitor volume status. EF preserved with mod to severe mean gradient [address] Lyons
Original Note:
Today's Communication / Plan
-
for EGD today
hgb improved
xarelto remains on hold
continue amiodarone for rate control for now
follow volume status
Impression / Plan
-
Primary Wealth Management Director: Dr. Lyons
Assessment:
-Presentation with BLUNT
-anemia with dark stools, concern for GI bleed
-Concern for acute CHF
-YARA
-Elevated troponin, suspected nonischemic myocardial injury
-subclinical hypothyroidism
-paroxysmal atrial fibrillation/atrial flutter
-chronic amiodarone therapy
-chronic xarelto therapy
-Chronic right bundle branch block
-CAD s/p CABG 06/2006 with FORD to LAD and SVG sequential to OM-1 and PDA
-CAD s/p Taxus to SVG to RCA 06/2006
-LAFB/RBBB
-mod to severe by echo 01/01/24
-HLD
-BPH
-GERD
-anxiety/depression
-past ETOH abuse
-KALTAG
-h/o anemia/GI bleed felt to be secondary to Aleksandr ulcers 02/2020
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
Echo 03/2022 at outside hospital: EF 60 to 65%, mild to moderate concentric LVH, biatrial enlargement, severe MAC, mild MS, trace MR, moderate TR, PAP 45 to 50 mmHg, mild pulmonary hypertension, mild to moderate
72 hour personnel monitor 08/2022: 3 AF episodes with burden of 0.17%
ECHO 01/01/24: EF 65-70%, mild cLVH, mild MS, peak/mean gradients 22/6 mmHg with a pressure 1/2 time of 59 ms. Mitral valve area
is 3.7 cm2. at least mild mitral regurgitation which may be underestimated due to dense MAC. Severely dilated left atrium. Moderate to severe aortic stenosis. Peak/mean gradients 47/21 mmHg. BRANDI 0.9 cm2. Moderate tricuspid regurgitation.
Estimated pulmonary artery pressure of 57 mmHg. Moderate pulmonary hypertension. Dilated right atrium. Enlarged right ventricular size. Right ventricular hypokinesis.
Plan:
-Patient presents to [facility] with complaints of dyspnea on exertion over the last week or so.
-Initially concern for acute CHF with proBNP of 2770 and small left pleural effusion by chest x-ray, however also with acute on chronic anemia and complaints of dark stools
-s/p 1 U PRBCs followed by 20mg IV lasix with improvement in hgb today to 9.2
-for EGD today
-xarelto remains on hold. continue asa as able
-avoid NSAIDs, had been taking prior to admission for migraines. possibly related to GI bleed and YARA. treatment of recent migraine headaches per primary service. Cr downtrending, 1.5 on 01/01
-Last echo from 03/2022 with results as above. echo 12/31 with preserved EF, mod to severe . will need continued OP follow up
-remains in rate controlled aflutter. was in rate controlled aflutter at last OV with Dr. Lyons 12/06/23. from OP monitor in 2022, burden of AF was 0.17%.
-Currently on outpatient amiodarone 200 mg Sunday dosing.
-consult wound care for eval of RLE wound
-trops relatively flat, peaked at 0.062. suspect nonischemic myocardial injury in setting of anemia, YARA.
-OP follow up with Dr. Lyons
Progress Note - Wealth Management Director
Subjective
Date of Service: January 02, 2024
for EGD today. no issues overnight
Objective
Labs:
01/02/24 07:07
01/02/24 07:07
Labs
Hgb 9.2 g/dL (13.0-18.0) L D 01/02/24 07:07
Hct 27.8 % (39.0-52.0) L 01/02/24 07:07
Plt Count 282 10^3/uL (130-400) 01/02/24 07:07
Sodium 142 mmol/L (135-145) 01/02/24 07:07
Potassium 4.3 mmol/L (3.5-5.1) 01/02/24 07:07
BUN 27 mg/dl (9-20) H 01/02/24 07:07
Creatinine 1.5 mg/dL (0.7-1.3) H 01/02/24 07:07
Glucose 110 mg/dl (70-99) H 01/02/24 07:07
Troponins
12/31/23 12/31/23 12/31/23
17:39 20:35 23:24
Troponin I 0.042 H* 0.045 H* 0.049 H*
01/01/24 01/01/24
05:38 11:12
Troponin I 0.062 H* D 0.053 H*
Vital Signs and I&O:
Vital Signs
Temp Pulse Resp BP Pulse Ox
97.6 F 68 20 135/55 96
01/02/24 07:35 01/02/24 07:35 01/02/24 07:35 01/02/24 07:35 01/02/24 07:35
Vital Signs
Temp Pulse Resp BP Pulse Ox
97.6 F 68 20 135/55 96
01/02/24 07:35 01/02/24 07:35 01/02/24 07:35 01/02/24 07:35 01/02/24 07:35
Intake & Output
12/31/23 01/01/24 01/02/24 01/03/24
07:59 07:59 07:59 07:59
Intake Total 480 / 480 1510 / 1510
Output Total 350 / 350 805 / 805
Balance 130 / 130 705 / 705
Physical Exam
Physical Exam
GEN: No distress, awake, alert, oriented x3
HEENT: supple, anicteric, mmm, eomi
LUNGS: CTA B/L, no wheezes/rales
CV: Irreg, S1/S2, 2/6 syst LSB
ABD: soft, BS+, NT/ND
EXT: No cyanosis, clubbing, edema
NEURO: Gross non-focal
SKIN: Warm, pink, dry. No rash
--- NOTE | 2024-01-02 11:29 | WOUNDNOTE ---
R LOWER ANTERIOR LEG
--- NOTE | 2024-01-02 11:30 | WOUNDNOTE ---
WON RN NOTE: Patient admitted for dyspnea on exertion, see complete medical history. Asked to see patient by nursing for R leg wound. Removed bandage from home, scant drainage. Patient states he accidentally banged leg on something causing it to
bleed. Appears essentially healed, silicone foam placed to protect. Heels and sacrum are intact, patient sitting in chair. Updated nurse Pat and recommend removing dressing in few days, if no drainage then leave open to air. Will sign off unless
needed.
--- NOTE | 2024-01-02 12:53 | CM ---
Chart reviewed and plan is to home no needs when stable.
Plan: Home no needs when stable.
[2024-01-02] MEDS: FERRLECIT 110 MG IV (13:53)
[2024-01-02] MEDS: PACERONE 200 MG PO (17:02)
--- NOTE | 2024-01-02 17:21 | W.PN.HOSP.TC ---
Today's Communication/Plan
-
Status post EGD
Transition to oral PPI.
Monitor hemoglobin
Increase activity with PT evaluation baseline discharge planning
Assessment / Plan
Assessment / Plan
Impression:
Presentation with exertional dyspnea.
Iron deficiency anemia.
Non-NM troponin elevation
Small left pleural effusion
YARA
Subclinical hypothyroidism
Other conditions:
ASCVD.
Paroxysmal atrial fibrillation/flutter therapy
Anticoagulation with Xarelto.
BPH.
History of colitis.
History of community-acquired pneumonia.
Plan:
Exertional dyspnea. Patient reports worsening over the last week or so
Denies any chest pain or palpitations.
Stable respiratory status with no requirements for supplemental oxygen.
Chest x-ray with very minimal pleural effusions otherwise clear lung [place].
CHF BNP elevated, although not higher than baseline.
Symptomatic acute on chronic normocytic anemia with iron deficiency.
Reports occasional hematochezia while at home.
No BM since presentation.
Hemoglobin drifting down to 7s.
Hold Xarelto and aspirin
Appropriate response to transfusion with hemoglobin up to 9.2
EGD 01/01 with gastric ulcer, nonbleeding
Transition to oral PPI twice daily.
GI follow-up as outpatient for repeat endoscopy
Continue IV iron
Check EPO level/pending
ASCVD
Non-NM troponin elevation
Chest pain-free.
ECG with a flutter.
Update echocardiogram with preserved biventricular function. Worsening now moderate aortic stenosis.
Continue statin
Clinically no evidence of volume overload.
Received additional IV Lasix with blood transfusion.
Paroxysmal atrial fibrillation/flutter.
Continue amiodarone
Hold Xarelto due to severe symptomatic anemia pending GI evaluation.
YARA.? CKD.
Creatinine 1.9�1.6.
Check urinalysis for sediment.
Bladder scan
Renal sonogram
Monitor creatinine while holding further diuresis. If further elevation consider nephrology consultation.
Subclinical hypothyroidism with TSH 5.5. Normal free T4 at 1.12. Suspect related to amiodarone
Follow-up TFT as outpatient
BPH
- Stable. Continue Proscar.
- Bladder scan protocol.
Full code.
DVT prophylaxis mechanical while holding Xarelto
Anticipated Discharge: 24 - 48 hours
Subjective/Interval History
-
Date of Service: January 02, 2024
Objective Data
-
Labs:
Laboratory Results
01/02/24
07:07
WBC 8.6
Hgb 9.2 L D
Hct 27.8 L
Plt Count 282
Sodium 142
Potassium 4.3
Chloride 108 H
Carbon Dioxide 24
BUN 27 H
Creatinine 1.5 H
Glucose 110 H
Calcium 8.8
Vital Signs:
Vital Signs
Temp Pulse Resp BP Pulse Ox
97.9 F 61 16 125/56 96
01/02/24 15:40 01/02/24 15:40 01/02/24 15:40 01/02/24 15:40 01/02/24 15:40
I&O
01/01/24 01/02/24 01/03/24
06:59 06:59 06:59
Intake Total 480 / 480 1510 / 1510
Output Total 350 / 350 805 / 805
Balance 130 / 130 705 / 705
Physical Exam
-
General: Well Developed, Well Nourished and No Apparent Distress
HEENT: Normocephalic and Atraumatic; Negative Oxygen
Respiratory: Clear to Auscultation and Wheezes; Negative Rhonchi
Cardiac: Regular Rhythm and S1/S2; Negative Murmur
GI: Soft, Nontender, Nondistended and Normal Bowel Sounds
Musculoskeletal: No Clubbing, No Cyanosis and No Edema
Neuro: Awake
Psych: Calm
[2024-01-02] MEDS: PROSCAR 5 MG PO (20:19)
[2024-01-02] MEDS: PROTONIX 40 MG PO (20:19)
[2024-01-02] MEDS: LIPITOR 40 MG PO (20:19)
[2024-01-03 04:38] VITALS: BP 129/57; BMI 23.1
[2024-01-03 07:50] VITALS: BP 123/62
[2024-01-03 07:57] LABS: % Basophils 0.7 % (0-2); % Eosinophils 3.6 % (0-6); % Immature Granulocytes 0.1 % (0-0.5); % Monocytes 11.8 % (1.7-9.3); % Neutrophils 59.8 % (42.2-75.2); Absolute Basophils 0.1 10^3/uL (0-0.2); Absolute Eosinophils 0.3 10^3/uL (0-0.7); Absolute Lymphocytes 2.2 10^3/uL (1.2-3.4); Absolute Monocytes 1.1 10^3/uL (0.1-0.6); Absolute Neutrophils 5.5 10^3/uL (1.4-6.5); Hematocrit 28.2 % (39.0-52.0); Hemoglobin 9.3 g/dL (13.0-18.0); Mean Corpuscular Hgb 29.6 pg (27.0-31.0); Mean Corpuscular Volume 89.8 fL (80.0-94.0); Mean Platelet Volume 9.7 fL (7.4-10.4); Nucleated Red Blood Cells % 0.3 % (-); Platelet Count 295 10^3/uL (130-400); Red Blood Cell Count 3.14 10^6/uL (4.70-6.10); Red Cell Dist. Width 13.7 % (11.5-14.5); White Blood Cell Count 9.1 10^3/uL (4.8-10.8)
[2024-01-03 08:20] LABS: Blood Urea Nitrogen 27 mg/dl (9-20); Calcium 8.9 mg/dl (8.4-10.2); Carbon Dioxide 24 mmol/L (22-30); Chloride 107 mmol/L (98-107); Estimated Creatinine Clearance 36 ml/min; Glucose 110 mg/dl (70-99); Potassium 4.4 mmol/L (3.5-5.1); Sodium 143 mmol/L (135-145); eGFR 48.65
[2024-01-03] MEDS: CYMBALTA DELAYED RELEASE 40 MG PO (08:42)
[2024-01-03] MEDS: PROTONIX 40 MG PO (08:42)
--- NOTE | 2024-01-03 10:45 | PN.CDI ---
CDI
- -
CDI:
Physician Documentation Request
Admit Date: 12/31/23 22:09
Dear Doctor Samuel,
Please review the following and provide your response in the progress notes.
Clinical Indicators:
Pt admitted with Symptomatic acute on chronic normocytic anemia with iron deficiency.
Progress notes 12/31 & 01/01,' Symptomatic acute on chronic normocytic anemia with iron deficiency.Reports occasional hematochezia while at home....Paroxysmal atrial fibrillation/flutter....Hold Xarelto due to severe symptomatic anemia pending GI
evaluation....'
EGD indication, ' Acute posthemorrhagic anemia..'
Please clarify the relationship between these conditions:
Yes, _ABLA/GI bleed __ is related to/associated with/exacerbated by _Xarelto use __.
No, _ABLA/GI Bleed __ is not related to/associated with/exacerbated by Xarelto use ___ but it is due to ___. (Please specify)
Unable to determine
Use of terms such as suspected, likely, concern for, or probable (associated with a specific diagnosis that is being evaluated, monitored, or treated as if it exists) are acceptable and can be coded in the inpatient setting, when documented at the
time of discharge.
Thank you,
Gunjan Watts RN
CDI Specialist
[place] [facility]
Please use your independent medical judgment in providing your response.
--- NOTE | 2024-01-03 10:52 | PN.CDI ---
CDI
- -
CDI:
Physician Documentation Request
Admit Date: 12/31/23 22:09
Dear Doctor Jose David,
Please review the following and provide your response in the progress notes.
Clinical Indicators:
Pt admitted with Symptomatic acute on chronic normocytic anemia with iron deficiency/GI bleed /ABLA
Documented per EGD report, ' One non-bleeding cratered gastric ulcer with a clean ulcer base (Aden
Class III) was found in the gastric body. The lesion was 1 mm in largest.... K25.9, Gastric ulcer, unspecified as acute or chronic, without hemorrhage or perforation...'
Clarify which of the following accurately represents the Suspected acuity of the (Gastric Ulcer)
Acute
Chronic
Other
Use of terms such as suspected, likely, concern for, or probable (associated with a specific diagnosis that is being evaluated, monitored, or treated as if it exists) are acceptable and can be coded in the inpatient setting, when documented at the
time of discharge.
Thank you,
Gunjan Watts RN
CDI Specialist
[facility]
Please use your independent medical judgment in providing your response.
[2024-01-03 11:30] VITALS: BP 125/53
--- NOTE | 2024-01-03 12:23 | W.PN.CARDCBS ---
Addendum entered and electronically signed by Carlos Gimenez DO 01/03/24 17:31:
I saw and examined the patient.
The Front Office Help's note was reviewed and I agree with the note.
Comment:
Plan:
Xarelto being resumed tonight
Stable cv status
Cont Amiodarone outpt dosing
Outpt follow up with Dr Lyons
Original Note:
Today's Communication / Plan
-
xarelto to resume tonight
continue amiodarone 200mg MWF
OP follow up with Dr. Lyons
Impression / Plan
-
Primary Road Traffic Controller: Dr. Lyons
Assessment:
-Presentation with BLUNT
-anemia with dark stools, concern for GI bleed
-Concern for acute CHF
-YARA
-Elevated troponin, suspected nonischemic myocardial injury
-subclinical hypothyroidism
-paroxysmal atrial fibrillation/atrial flutter
-chronic amiodarone therapy
-chronic xarelto therapy
-Chronic right bundle branch block
-CAD s/p CABG 06/2006 with FORD to LAD and SVG sequential to OM-1 and PDA
-CAD s/p Taxus to SVG to RCA 06/2006
-LAFB/RBBB
-mod to severe by echo 01/01/24
-HLD
-BPH
-GERD
-anxiety/depression
-past ETOH abuse
-SIOUX
-h/o anemia/GI bleed felt to be secondary to Aleksandr ulcers 02/2020
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
Echo 03/2022 at outside hospital: EF 60 to 65%, mild to moderate concentric LVH, biatrial enlargement, severe MAC, mild MS, trace MR, moderate TR, PAP 45 to 50 mmHg, mild pulmonary hypertension, mild to moderate
72 hour gambling monitor 08/2022: 3 AF episodes with burden of 0.17%
ECHO 01/01/24: EF 65-70%, mild cLVH, mild MS, peak/mean gradients 22/6 mmHg with a pressure 1/2 time of 59 ms. Mitral valve area
is 3.7 cm2. at least mild mitral regurgitation which may be underestimated due to dense MAC. Severely dilated left atrium. Moderate to severe aortic stenosis. Peak/mean gradients 47/21 mmHg. BRANDI 0.9 cm2. Moderate tricuspid regurgitation.
Estimated pulmonary artery pressure of 57 mmHg. Moderate pulmonary hypertension. Dilated right atrium. Enlarged right ventricular size. Right ventricular hypokinesis.
Plan:
-Presented with dyspnea on exertion and found to have acute on chronic anemia with dark stools.
-EGD 01/01 with evidence of gastric ulcer. treatment per GI
-Status post 1 unit packed red blood cells with stable hemoglobin of 9.3 overnight
-Per GI note, okay to resume Xarelto tonight
-avoid NSAIDs, had been taking prior to admission for migraines. possibly related to GI bleed and YARA. treatment of recent migraine headaches per primary service. Cr downtrending, 1.4 on 01/02
-Last echo from 03/2022 with results as above. echo 12/31 with preserved EF, mod to severe . will need continued OP follow up
-remains in rate controlled aflutter. was in rate controlled aflutter at last OV with Dr. Lyons 12/06/23. from OP monitor in 2022, burden of AF was 0.17%.
-Currently on outpatient amiodarone 200 mg Sunday dosing.
-trops relatively flat, peaked at 0.062. suspect nonischemic myocardial injury in setting of anemia, YARA.
-OP follow up with Dr. Lyons
-d/w nursing
Progress Note - Road Traffic Controller
Subjective
Date of Service: January 03, 2024
No issues overnight
Objective
Labs:
01/03/24 07:35
01/03/24 07:35
Labs
Hgb 9.3 g/dL (13.0-18.0) L 01/03/24 07:35
Hct 28.2 % (39.0-52.0) L 01/03/24 07:35
Plt Count 295 10^3/uL (130-400) 01/03/24 07:35
Sodium 143 mmol/L (135-145) 01/03/24 07:35
Potassium 4.4 mmol/L (3.5-5.1) 01/03/24 07:35
BUN 27 mg/dl (9-20) H 01/03/24 07:35
Creatinine 1.4 mg/dL (0.7-1.3) H 01/03/24 07:35
Glucose 110 mg/dl (70-99) H 01/03/24 07:35
Troponins
12/31/23 12/31/23 12/31/23
17:39 20:35 23:24
Troponin I 0.042 H* 0.045 H* 0.049 H*
01/01/24 01/01/24
05:38 11:12
Troponin I 0.062 H* D 0.053 H*
Vital Signs and I&O:
Vital Signs
Temp Pulse Resp BP Pulse Ox
97.7 F 67 20 125/53 97
01/03/24 11:30 01/03/24 11:30 01/03/24 11:30 01/03/24 11:30 01/03/24 11:30
Vital Signs
Temp Pulse Resp BP Pulse Ox
97.7 F 67 20 125/53 97
01/03/24 11:30 01/03/24 11:30 01/03/24 11:30 01/03/24 11:30 01/03/24 11:30
Intake & Output
01/01/24 01/02/24 01/03/24 01/04/24
07:59 07:59 07:59 07:59
Intake Total 480 / 480 1510 / 1510 480 / 480
Output Total 350 / 350 805 / 805 600 / 600
Balance 130 / 130 705 / 705 -120 / -120
Physical Exam
Physical Exam
GEN: No distress, awake, alert, oriented x3
HEENT: supple, anicteric, mmm, eomi
LUNGS: CTA B/L, no wheezes/rales
CV: Irreg, S1/S2, 2/6 syst LSB
ABD: soft, BS+, NT/ND
EXT: No cyanosis, clubbing, edema
NEURO: Gross non-focal
SKIN: Warm, pink, dry. No rash
[2024-01-03 14:16] LABS: Erythropoietin (EPO) 168 mU/mL (4-27)
--- NOTE | 2024-01-03 14:26 | W.DS.TRANS ---
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
-
Discharge Instructions:
Sleep Apnea Risk Intermediate
Discharge Diagnosis/Procedures Impression:
Presentation with exertional dyspnea.
PUD, new diagnosis
Iron deficiency anemia.
Non-DC troponin elevation
Small left pleural effusion
YARA
Subclinical hypothyroidism
Other conditions:
ASCVD.
Paroxysmal atrial fibrillation/flutter therapy
Anticoagulation with Xarelto.
BPH.
History of colitis.
History of community-acquired pneumonia.
Blood Work BMP, CBC in one week
Instructions:
Stand-Alone Forms:
Changes to Home Medications: Yes
Discharge Medications:
DC Medications w/original date entered in [facility] [employer]
ascorbic acid (vitamin C) 500 mg tablet (Vitamin C) 500 mg PO DAILY Supplement 11/22/17
cholecalciferol (vitamin D3) 25 mcg (1,000 unit) tablet 1,000 units PO DAILY Supplement 03/05/20
finasteride 5 mg tablet 5 mg PO HS Urinary issue 03/05/20
cyanocobalamin (vitamin B-12) 1,000 mcg tablet 1,000 mcg PO DAILY Supplement 01/25/21
amiodarone 200 mg tablet (Pacerone) 200 mg PO MOWEFR Arrhythmia 11/02/21
atorvastatin 40 mg tablet 40 mg PO HS High Cholesterol 12/19/22
rivaroxaban 20 mg tablet (Xarelto) 20 mg PO QPM Blood Clot Prevention/Tx 12/20/22
Lactobac no.2-Bifidobac no.1-S. thermo 112.5 billion cell capsule (Visbiome) 1 cap PO DAILY 12/31/23
cetirizine 10 mg tablet (Zyrtec) 10 mg PO DAILY 12/31/23
duloxetine 40 mg capsule,delayed release 40 mg PO DAILY 12/31/23
magnesium oxide 500 mg PO DAILY 12/31/23
zinc sulfate 50 mg zinc (220 mg) tablet 50 mg PO DAILY 12/31/23
pantoprazole 40 mg tablet,delayed release 40 mg PO BID #60 tabs 01/03/24
Home Medication Changes
PPI imitated.
Pending Results: No
[2024-01-03 15:00] VITALS: BP 163/69
--- NOTE | 2024-01-03 15:15 | CM ---
Recommendation from PT for home PT. CM met with Mr. Nickerson at bedside; he is agreeable, and previously had home care, but was not sure of the agency, stating they did a good job. CM looked at past records and found that he had [facility] previously.
Patient referred to [facility] for home PT and OT.
CM spoke with pt's son on the telephone and provided directions to get to the car pick up driver area near [facility]. He will call his father when he arrives, anticipating a 4pm arrival.
Plan: Discharge to home with home PT and OT with [facility].
--- NOTE | 2024-01-03 15:46 | VNURNOTE ---
Home Health Liaison met with patient at bedside to discuss [facility] therapy, visits, schedule and homebound status. Patient is agreeable and understands that visits at home will be 2-3 x per week for home PT/OT. Does not appear to have a skilled nurse
need. [facility] brochure provided with contact information. Patient is aware that [facility] will contact them for start of care in 1-2 days after discharge from .
[facility] referral completed in [facility].
--- NOTE | 2024-01-09 11:37 | W.PN.UPDATE ---
Update Note
Progress Note Update
*Clinical Documentation
Acute gastric ulcer
== END 2024-01-03 16:14 | disposition home health service (06) | DRG 377 ==
LOC: 4 EAST ACU 22:09
PROVIDERS: Student in an Organized Health Care Education/Training Program; ADMITTING PHYSICIAN Hospitalist; ATTENDING PHYSICIAN Internal Medicine; CONSULT PHYSICIAN Internal Medicine; CONSULT PHYSICIAN Internal Medicine Cardiovascular Disease; EMERGENCY PHYSICIAN Student in an Organized Health Care Education/Training Program; FAMILY PHYSICIAN Internal Medicine
PROC: 30233N1 Transfusion of Nonautologous Red Blood Cells into Peripheral Vein, Percutaneous Approach (ICD-10-PCS; 2024-01-01)
PROC: 0DJ08ZZ Inspection of Upper Intestinal Tract, Via Natural or Artificial Opening Endoscopic (ICD-10-PCS; 2024-01-02)
DX: K25.0 Acute gastric ulcer with hemorrhage (principal); I50.31 Acute diastolic (congestive) heart failure; D62 Acute posthemorrhagic anemia; N17.9 Acute kidney failure, unspecified; I48.92 Unspecified atrial flutter; I5A Non-ischemic myocardial injury (non-traumatic); I13.0 Hypertensive heart and chronic kidney disease with heart failure and stage 1 through stage 4 chronic kidney disease, or unspecified chronic kidney disease; J91.8 Pleural effusion in other conditions classified elsewhere; D68.32 Hemorrhagic disorder due to extrinsic circulating anticoagulants; I27.20 Pulmonary hypertension, unspecified; D50.9 Iron deficiency anemia, unspecified; E03.8 Other specified hypothyroidism; F32.A Depression, unspecified; I35.0 Nonrheumatic aortic (valve) stenosis; F10.11 Alcohol abuse, in remission; N18.9 Chronic kidney disease, unspecified; T45.515A Adverse effect of anticoagulants, initial encounter; I48.0 Paroxysmal atrial fibrillation; Z79.01 Long term (current) use of anticoagulants; E78.00 Pure hypercholesterolemia, unspecified; F41.9 Anxiety disorder, unspecified; G43.909 Migraine, unspecified, not intractable, without status migrainosus; I25.10 Atherosclerotic heart disease of native coronary artery without angina pectoris; Z95.1 Presence of aortocoronary bypass graft; I45.10 Unspecified right bundle-branch block; K21.9 Gastro-esophageal reflux disease without esophagitis; K44.9 Diaphragmatic hernia without obstruction or gangrene; K64.9 Unspecified hemorrhoids; N40.0 Benign prostatic hyperplasia without lower urinary tract symptoms; Z96.653 Presence of artificial knee joint, bilateral; R06.02 Shortness of breath; R06.09 Other forms of dyspnea; Z79.82 Long term (current) use of aspirin; Z79.899 Other long term (current) drug therapy; Z87.19 Personal history of other diseases of the digestive system; Z87.891 Personal history of nicotine dependence; Z86.010 Personal history of colon polyps; Z86.73 Personal history of transient ischemic attack (TIA), and cerebral infarction without residual deficits; Z87.440 Personal history of urinary (tract) infections; Z87.01 Personal history of pneumonia (recurrent); Z82.49 Family history of ischemic heart disease and other diseases of the circulatory system
CPT/HCPCS: 71046; 76770; 80048; 80053; 80061; 81003; 82668; 83540; 83550; 83880; 84439; 84443; 84484; 85025; 85027; 86850; 86900; 86901; 86920; 87811; 93005; 93306; 97116; 97162; 97166; 97530; 99285; J2916; P9016

== ENCOUNTER 2024-02-28 12:05 | Emergency (ER) | payer OTHER, SELFPAY ==
[2024-02-28] VITALS (7 sets, daily range): BP systolic 123–153; BP diastolic 46–63; BMI 25.6
[2024-02-28 12:55] LABS: % Basophils 0.9 % (0-2); % Eosinophils 1.2 % (0-6); % Immature Granulocytes 0.3 % (0-0.5); % Lymphocytes 26.4 % (20.5-51.1); % Monocytes 9.2 % (1.7-9.3); Absolute Basophils 0.1 10^3/uL (0-0.2); Absolute Eosinophils 0.1 10^3/uL (0-0.7); Absolute Lymphocytes 1.8 10^3/uL (1.2-3.4); Absolute Monocytes 0.6 10^3/uL (0.1-0.6); Absolute Neutrophils 4.3 10^3/uL (1.4-6.5); Hematocrit 27.6 % (39.0-52.0); Hemoglobin 8.8 g/dL (13.0-18.0); Mean Corp Hgb Conc. 31.9 g/dL (33.0-37.0); Mean Corpuscular Hgb 27.3 pg (27.0-31.0); Mean Corpuscular Volume 85.7 fL (80.0-94.0); Mean Platelet Volume 9.4 fL (7.4-10.4); Nucleated Red Blood Cells % 0 % (-); Platelet Count 299 10^3/uL (130-400); Red Blood Cell Count 3.22 10^6/uL (4.70-6.10); White Blood Cell Count 6.9 10^3/uL (4.8-10.8)
[2024-02-28 13:04] LABS: ALT (SGPT) 16 U/L (0-50); AST (SGOT) 24 U/L (17-59); Albumin 4.5 g/dl (3.5-5.0); Alkaline Phosphatase 136 U/L (38-126); Blood Urea Nitrogen 38 mg/dl (9-20); Carbon Dioxide 22 mmol/L (22-30); Chloride 105 mmol/L (98-107); Estimated Creatinine Clearance 26 ml/min; Glucose 137 mg/dl (70-99); Potassium 4.4 mmol/L (3.5-5.1); Sodium 141 mmol/L (135-145); Total Protein 7.3 g/dl (6.3-8.2); eGFR 33.72
[2024-02-28 13:17] LABS: NT-proBNP 2310 pg/ml; Troponin I 0.044 ng/ml
--- NOTE | 2024-02-28 13:51 | ED.GENMED ---
History of Present Illness
General
Chief Complaint: Abnormal Lab Value
Source: patient
Exam Limitations: none
Time Seen by Provider: 02/28/24 12:36
History of Present Illness
History of Present Illness:
88-year-old male on Xarelto with history of coronary artery disease, A-fib presents complaining of fatigue shortness of breath ongoing for the past several days. He was seen as an outpatient by the family doctor yesterday and labs were drawn. He
was called today and told his kidney function was abnormal and he was anemic and he had elevated cardiac enzymes. He denies chest pain. No recent fever or cough. No prior history of CHF. No vomiting. No abdominal pain. No other complaints. He
denies dark or tarry stools
Past History
Past History
ED Past Medical History: Arrthythmia (afib), CHF, CVA, HTN, Hypercholesterolemia, MS and Other (Anemia, Diverticulitis, Bowel obstruction, Anemia, Colitis, Ulcers, UTi)
ED Past Surgical History: Appendectomy, Cardiac (CABG) and Orthopedic (Bilateral knee replacement)
Patient has exhibited threatening behavior?: No
Social History
Tobacco: Non-smoker
Alcohol: None
Personal:
Living: alone
Employment: Retired
Phy Exam
Physical Exam
Physical Exam:
General: Well-appearing male no acute respiratory
HEENT: Normocephalic atraumatic
Heart: Regular rate and rhythm no murmurs
Lungs: Clear no obvious rales
Extremities: No cyanosis skin: Warm no rash
Course
Orders/Labs/Results
Orders:
Orders
02/28/24 12:09
Electrocardiogram (*1) Urgent
Reason for Study: Other
Other Reason for Exam: Respiratory Distress
EKG- Treatment ONCE
02/28/24 12:27
Complete Blood Count/With Diff Urgent
Comprehensive Metabolic Panel Urgent
NT-proBNP Urgent
Troponin I Urgent
02/28/24 13:18
CR Chest - 2 Views Urgent
Comment:
Reason For Exam: sob
02/28/24 15:20
Troponin I Urgent
Abnormal Lab Results
02/28/24 02/28/24
12:27 15:20
RBC 3.22 L 10^6/uL
(4.70-6.10)
Hgb 8.8 L g/dL
(13.0-18.0)
Hct 27.6 L %
(39.0-52.0)
MCHC 31.9 L g/dL
(33.0-37.0)
RDW 16.0 H %
(11.5-14.5)
BUN 38 H mg/dl
(9-20)
Creatinine 1.9 H mg/dL
(0.7-1.3)
Glucose 137 H mg/dl
(70-99)
Alkaline Phosphatase 136 H U/L
(38-126)
Troponin I 0.044 H* ng/ml 0.035 H* ng/ml
02/28/24 12:27
02/28/24 12:27
Vital Signs
Initial and Last Documented VS:
Initial Vital Signs
Temp Pulse Resp BP Pulse Ox
98.3 F 63 19 129/62 98
02/28/24 12:06 02/28/24 12:06 02/28/24 12:06 02/28/24 12:06 02/28/24 12:06
Last Documented Vital Signs
Temp Pulse Resp BP Pulse Ox
98.3 F 61 21 153/63 98
02/28/24 12:06 02/28/24 16:00 02/28/24 16:00 02/28/24 16:00 02/28/24 15:45
MDM/Problems Addressed
Differential Diagnosis Includes:
Fatigue with shortness of breath. Consider anemia versus electrolyte abnormality versus pneumonia or CHF.
Will check labs. Chest x-ray pending. Vital signs are stable in the room
*Critical Care Note
Total Time (30-74mins, 75-104mins- exclusive of procedures): Not Applicable
Update Note
Update Note:
Patient reevaluated still stable feels well he ambulated here without difficulty. No hypoxia upon ambulation. Repeat troponin slightly improved. He is always elevated with his troponin. Kidney functions are always elevated as this is anemia is
always low. Chronic findings on today's workup no indication for admission. No evidence of ACS. Patient accompanied with daughter. Discussed disposition from here they wish to try to go home and follow-up with her doctors.
ED Attending Note
-
Portions of this chart may have been created with voice recognition software.� Occasional wrong word or��sound alike� substitutions may have occurred due to the inherent limitations of voice recognition software.
Discharge Plan
Departure
Patient Disposition: Home (Routine Discharge)
Date of Disposition: 02/28/24
Time of Disposition: 16:41
Patient with high blood pressure during this ER visit?: No
Discharge Problem:
Fatigue
Instructions: Dehydration, Adult (DC)
Prescriptions:
No Action
ascorbic acid (vitamin C) [Vitamin C] 500 MG tablet
500 mg PO DAILY
finasteride 5 MG tablet
5 mg PO HS
cholecalciferol (vitamin D3) 1,000 UNITS tablet
1,000 units PO DAILY
cyanocobalamin (vitamin B-12) 1,000 MCG tablet
1,000 mcg PO DAILY
amiodarone [Pacerone] 200 MG tablet
200 mg PO MOWEFR
atorvastatin 40 mg tablet
40 mg PO HS
cetirizine [Zyrtec] 10 mg Tablet
10 mg PO DAILY
zinc sulfate 50 mg zinc (220 mg) Tablet
50 mg PO DAILY
magnesium oxide 500 mg magnesium Tablet
500 mg PO DAILY
Visbiome 112.5 billion cell Capsule
1 cap PO DAILY
duloxetine 40 mg Capsule,Delayed Release(Dr/Ec)
40 mg PO DAILY
polyethylene glycol 3350 [Miralax] 17 gram Powder In Packet
17 g PO HS
acetaminophen [Tylenol Extra Strength] 500 mg Tablet
1,000 mg PO Q6HPRN PRN (Reason: mild pain/headache)
Xarelto 15 mg Tablet
15 mg PO DAILY
pantoprazole 40 mg tablet,delayed release (DR/EC)
40 mg PO BID
Referrals:
Da Merritt MD [Family Provider] -
Activity Restrictions/Additional Instructions:
Rest. Stay hydrated peer return here for worsening symptoms otherwise follow-up with your doctors
Interventions
Interventions:
*Risk Screen - Suicide Last Done: 02/28/24 12:06
*General Assessment Last Done: 02/28/24 12:06
*Neglect/Abuse Screening Last Done: 02/28/24 12:06
ED- Fall Risk Assessment Last Done: 02/28/24 12:47
*ED COVID-19 Vaccine History Last Done: 02/28/24 12:24
Discharge Date and Time
Print Language: HEBREW
[2024-02-28 16:07] LABS: Troponin I 0.035 ng/ml
== END 2024-02-28 17:04 | disposition home or self-care (01) ==
LOC: EMR 12:05
PROVIDERS: Emergency Medicine; Physician Assistant; EMERGENCY PHYSICIAN Emergency Medicine; FAMILY PHYSICIAN Internal Medicine
DX: R53.83 Other fatigue (principal); R06.02 Shortness of breath; I25.10 Atherosclerotic heart disease of native coronary artery without angina pectoris; I48.91 Unspecified atrial fibrillation; D64.9 Anemia, unspecified; I11.0 Hypertensive heart disease with heart failure; I50.9 Heart failure, unspecified; I25.2 Old myocardial infarction; Z79.01 Long term (current) use of anticoagulants; E78.00 Pure hypercholesterolemia, unspecified; Z86.73 Personal history of transient ischemic attack (TIA), and cerebral infarction without residual deficits; Z95.1 Presence of aortocoronary bypass graft
CPT/HCPCS: 99285; 71046; 80053; 83880; 84484; 85025; 93005

== ENCOUNTER 2024-03-05 11:34 | Emergency (ER) | payer OTHER, SELFPAY ==
[2024-03-05] VITALS (8 sets, daily range): BP systolic 121–188; BP diastolic 49–82; PULSE 62–65; BMI 23.9
--- NOTE | 2024-03-05 12:31 | ED.GENMED ---
History of Present Illness
General
Chief Complaint: Breathing Problem
Source: patient and family
Exam Limitations: none
Time Seen by Provider: 03/05/24 11:49
Nursing documentation reviewed up to this point in time: agreed with
History of Present Illness
History of Present Illness:
88-year-old male with past medical history of previous GI bleeds A-fib currently on Xarelto, hypertension hyperlipidemia presenting to the emergency department today with concerns of intermittent red blood when wiping over the past month but also
increasing shortness of breath lightheadedness generalized weakness with exertion worsening over the past month. Had labs drawn 2 days ago that showed decreasing hemoglobin. Denies specific chest pain shortness of breath at rest at this point. No
numbness or weakness no injuries. No abdominal pain at any point.
Past History
Past History
ED Past Medical History: Arrthythmia (afib), CHF, CVA, HTN, Hypercholesterolemia, AR and Other (Anemia, Diverticulitis, Bowel obstruction, Anemia, Colitis, Ulcers, UTi)
ED Past Surgical History: Appendectomy, Cardiac (CABG) and Orthopedic (Bilateral knee replacement)
Patient has exhibited threatening behavior?: No
Social History
Tobacco: Non-smoker
Alcohol: None
Personal:
Living: alone
Employment: Retired
Review of Systems
Review of Systems
Allergies reviewed?: Yes
All Other Systems: ROS reviewed and negative except as documented in HPI and ROS
Phy Exam
Physical Exam
Physical Exam:
GENERAL: Alert , in no apparent distress
EYE: pupils equal and reactive
NECK: Supple, no significant adenopathy.
ENT: o/p clr, mmm.
CARDIAC: Regular rate and rhythm .
LUNGS: Clear breath sounds bilaterally, no acute respiratory distress, no wheezes/rales/rhonchi
ABDOMEN: Rectal examination with brown stool guaiac negative. Soft, without focal tenderness, no r/g, no cvat
NEUROLOGICAL: Alert and oriented, no focal neuro deficits
SKIN: Warm and dry, skin intact.
MUSCULOSKELETAL: No edema, well perfused.
PSYCH: Normal and appropriate interaction.
Scores
Heart Failure Risk
Heart Failure Risk Score: Not Applicable
Course
Orders/Labs/Results
Orders:
Orders
03/05/24 11:55
EKG [Electrocardiogram (*1)] Urgent
Reason for Study: Fatigue / Weakness
EKG- Treatment ONCE
03/05/24 12:24
Type+Screen Urgent
CBC/With Diff [Complete Blood Count/With Diff] Urgent
03/05/24 12:59
Chest [CR Chest - 2 Views ] Urgent
Comment:
Reason For Exam: sob
03/05/24 14:14
Comprehensive Metabolic Panel Urgent
Urinalysis Reflex To Culture Urgent
Date Specimen was Collected: 03/05/24
Time Specimen was Collected: 14:02
Abnormal Lab Results
03/05/24 03/05/24
12:24 14:14
RBC 3.01 L 10^6/uL
(4.70-6.10)
Hgb 8.3 L g/dL
(13.0-18.0)
Hct 26.0 L %
(39.0-52.0)
MCHC 31.9 L g/dL
(33.0-37.0)
RDW 15.7 H %
(11.5-14.5)
Absolute Monos (auto) 0.8 H 10^3/uL
(0.1-0.6)
Monocytes % 10.8 H %
(1.7-9.3)
Chloride 108 H mmol/L
(98-107)
Carbon Dioxide 21 L mmol/L
(22-30)
BUN 30 H mg/dl
(9-20)
Creatinine 1.5 H mg/dL
(0.7-1.3)
Glucose 112 H mg/dl
(70-99)
Alkaline Phosphatase 130 H U/L
(38-126)
03/05/24 12:24
03/05/24 14:14
Vital Signs
Initial and Last Documented VS:
Initial Vital Signs
Temp Pulse Resp BP Pulse Ox
98.2 F 68 16 121/49 98
03/05/24 11:36 03/05/24 11:36 03/05/24 11:36 03/05/24 11:36 03/05/24 11:36
Last Documented Vital Signs
Temp Pulse Resp BP Pulse Ox
98.2 F 64 21 125/57 99
03/05/24 11:36 03/05/24 14:30 03/05/24 14:30 03/05/24 14:26 03/05/24 14:30
MDM/Problems Addressed
MDM/Problems Addressed:
88-year-old male presenting to the emergency department today with concerns of red blood when wiping over the past month has had worsening exertional shortness of breath lightheadedness and weakness over that period of time as well. On examination
patient stools brown and guaiac negative. Denies any symptoms at rest. Symptoms patient was walked here with normal pulse ox did not feel lightheaded during a few minutes of walking. Labs showing hemoglobin of 8.3 which is a 1 point drop over the
past 2 months. Otherwise labs unremarkable at patient's baseline normal urinalysis chest x-ray without acute emergent findings. Patient previous echo was reviewed. He was advised for close cardiology follow-up, GI follow-up and primary care
follow-up. At this point no indication for admission to the hospital strict return precautions were discussed he demonstrated understanding and agreement.
*Critical Care Note
Total Time (30-74mins, 75-104mins- exclusive of procedures): Not Applicable
ED Attending Note
-
Portions of this chart may have been created with voice recognition software.� Occasional wrong word or��sound alike� substitutions may have occurred due to the inherent limitations of voice recognition software.
Discharge Plan
Departure
Patient Disposition: Home (Routine Discharge)
Date of Disposition: 03/05/24
Time of Disposition: 15:35
Patient with high blood pressure during this ER visit?: No
Condition: Good
Covid-19: Not Applicable
Discharge Problem:
BLUNT (dyspnea on exertion)
Instructions: Shortness of Breath (Dyspnea) (DC)
Prescriptions:
New
ferrous sulfate 325 mg (65 mg iron) tablet
325 mg PO DAILY 14 Days Qty: 14 0RF
No Action
ascorbic acid (vitamin C) [Vitamin C] 500 MG tablet
500 mg PO DAILY
finasteride 5 MG tablet
5 mg PO HS
cholecalciferol (vitamin D3) 1,000 UNITS tablet
1,000 units PO DAILY
cyanocobalamin (vitamin B-12) 1,000 MCG tablet
1,000 mcg PO DAILY
amiodarone [Pacerone] 200 MG tablet
200 mg PO MOWEFR
atorvastatin 40 mg tablet
40 mg PO HS
cetirizine [Zyrtec] 10 mg Tablet
10 mg PO HS
zinc sulfate 50 mg zinc (220 mg) Tablet
50 mg PO DAILY
magnesium oxide 500 mg magnesium Tablet
500 mg PO DAILY
Visbiome 112.5 billion cell Capsule
1 cap PO DAILY
duloxetine 40 mg Capsule,Delayed Release(Dr/Ec)
40 mg PO DAILY
pantoprazole 40 mg tablet,delayed release (DR/EC)
40 mg PO BID
clopidogrel 75 mg tablet
75 mg PO HS
acetaminophen 325 mg Tablet
650 mg PO Q4H PRN (Reason: pain/headache)
Referrals:
Da Merritt MD [Family Provider] -
Activity Restrictions/Additional Instructions:
You came to the emergency department today with concerns of shortness of breath. Here you did have reassuring labs your hemoglobin was slightly lower than before please take iron once daily and follow-up closely for repeated labs within the next
week. Otherwise follow-up with cardiology and your GI doctor. Return to the emergency department for any worsening, new or concerning symptoms.
Interventions
Interventions:
*Risk Screen - Suicide Last Done: 03/05/24 11:36
*General Assessment Last Done: 03/05/24 11:36
*Neglect/Abuse Screening Last Done: 03/05/24 11:36
ED- Fall Risk Assessment Last Done: 03/05/24 12:22
*ED COVID-19 Vaccine History Last Done: 03/05/24 12:21
ED- Cardiac Assessment Last Done: 03/05/24 14:38
ED- Pulmonary Assessment Last Done: 03/05/24 12:22
Discharge Date and Time
Print Language: TRISTANIAN
[2024-03-05 12:40] LABS: % Basophils 0.7 % (0-2); % Eosinophils 1.5 % (0-6); % Immature Granulocytes 0.1 % (0-0.5); % Lymphocytes 21.1 % (20.5-51.1); % Monocytes 10.8 % (1.7-9.3); % Neutrophils 65.8 % (42.2-75.2); Absolute Basophils 0.1 10^3/uL (0-0.2); Absolute Eosinophils 0.1 10^3/uL (0-0.7); Absolute Lymphocytes 1.6 10^3/uL (1.2-3.4); Absolute Monocytes 0.8 10^3/uL (0.1-0.6); Hemoglobin 8.3 g/dL (13.0-18.0); Mean Corp Hgb Conc. 31.9 g/dL (33.0-37.0); Mean Corpuscular Hgb 27.6 pg (27.0-31.0); Mean Corpuscular Volume 86.4 fL (80.0-94.0); Mean Platelet Volume 9.5 fL (7.4-10.4); Nucleated Red Blood Cells % 0 % (-); Platelet Count 287 10^3/uL (130-400); Red Blood Cell Count 3.01 10^6/uL (4.70-6.10); Red Cell Dist. Width 15.7 % (11.5-14.5); White Blood Cell Count 7.6 10^3/uL (4.8-10.8)
--- NOTE | 2024-03-05 13:58 | PHANOTE ---
Patient reported that he had been taking xarelto 15mg daily until discontinued by PCP 5 days ago. Patient stated that his last dose was taken on 02/29/24.
[2024-03-05 14:46] LABS: Urine Albumin Negative (Neg - Trace); Urine Bilirubin Negative (Negative); Urine Character Clear (Clear); Urine Color Yellow; Urine Glucose Negative (Negative); Urine Ketone Negative (Negative); Urine Leukocyte Negative (Negative); Urine Nitrite Negative (Negative); Urine Occult Blood Negative (Negative); Urine Urobilinogen Negative (Neg - 1+); Urine pH 6.5 (5.0-9.0)
[2024-03-05 15:06] LABS: ALT (SGPT) 17 U/L (0-50); AST (SGOT) 32 U/L (17-59); Albumin 4.4 g/dl (3.5-5.0); Alkaline Phosphatase 130 U/L (38-126); Blood Urea Nitrogen 30 mg/dl (9-20); Calcium 8.9 mg/dl (8.4-10.2); Carbon Dioxide 21 mmol/L (22-30); Chloride 108 mmol/L (98-107); Estimated Creatinine Clearance 34 ml/min; Glucose 112 mg/dl (70-99); Sodium 140 mmol/L (135-145); Total Protein 7.2 g/dl (6.3-8.2); eGFR 44.78
== END 2024-03-05 16:23 | disposition home or self-care (01) ==
LOC: EMR 11:34
PROVIDERS: Physician Assistant; EMERGENCY PHYSICIAN Emergency Medicine; FAMILY PHYSICIAN Internal Medicine
DX: R06.09 Other forms of dyspnea (principal); R71.0 Precipitous drop in hematocrit; E78.00 Pure hypercholesterolemia, unspecified; I11.0 Hypertensive heart disease with heart failure; I50.9 Heart failure, unspecified; I48.91 Unspecified atrial fibrillation; Z79.01 Long term (current) use of anticoagulants; Z86.73 Personal history of transient ischemic attack (TIA), and cerebral infarction without residual deficits
CPT/HCPCS: 99285; 71046; 80053; 81003; 85025; 86850; 86900; 86901; 93005

== ENCOUNTER 2024-03-12 06:08 | Day surgery (SDC) | payer OTHER, SELFPAY ==
[2024-03-12] VITALS (18 sets, daily range): BP systolic 135–185; BP diastolic 45–83; BMI 27.3
[2024-03-12 06:52] LABS: Hematocrit 28.6 % (39.0-52.0); Hemoglobin 8.8 g/dL (13.0-18.0); Mean Corp Hgb Conc. 30.8 g/dL (33.0-37.0); Mean Corpuscular Hgb 26.8 pg (27.0-31.0); Mean Corpuscular Volume 87.2 fL (80.0-94.0); Mean Platelet Volume 9.6 fL (7.4-10.4); Platelet Count 331 10^3/uL (130-400); Red Blood Cell Count 3.28 10^6/uL (4.70-6.10); Red Cell Dist. Width 15.9 % (11.5-14.5); White Blood Cell Count 8.8 10^3/uL (4.8-10.8)
[2024-03-12 07:10] LABS: ALT (SGPT) 16 U/L (0-50); AST (SGOT) 24 U/L (17-59); Albumin 4.3 g/dl (3.5-5.0); Alkaline Phosphatase 141 U/L (38-126); Blood Urea Nitrogen 35 mg/dl (9-20); Calcium 8.7 mg/dl (8.4-10.2); Carbon Dioxide 24 mmol/L (22-30); Chloride 108 mmol/L (98-107); Estimated Creatinine Clearance 24 ml/min; Glucose 126 mg/dl (70-99); Potassium 4.4 mmol/L (3.5-5.1); Sodium 146 mmol/L (135-145); Total Bilirubin 0.7 mg/dl (0.2-1.3); eGFR 35.98
[2024-03-12] MEDS: LOW STRENGTH ASPIRIN 81 MG PO (07:16)
--- NOTE | 2024-03-12 09:30 | ITS.CL.CATH ---
Pneumatic Tester - Catheterization
Cardiac Catheterization
Procedure Report:
CARDIAC CATHETERIZATION REPORT
Date of Procedure: 03/12/2024
Referring: Adrián Lyons M.D.
Indication: Increasing dyspnea on exertion, known coronary artery disease status post bypass, progressive aortic valve stenosis.
PROCEDURE:
1. Right heart catheterization.
2. Left heart catheterization.
3. Coronary angiography.
4. Bypass angiography.
5. Aortic valve interrogation.
ACCESS:
6 Swiss left radial artery.
5 Swiss left antecubital vein using a modified Seldinger technique under ultrasound guidance.
CATHETERS:
1. 5 Swiss balloon wedge.
2. 5 Swiss JL 3.5.
3. 5 Swiss JR4.
4. 5 Swiss LEONARD.
6. 6 Swiss Cheshire dual-lumen pigtail catheter.
HEMODYNAMIC DATA
Weight (kg): 71.7
AO (s/d/x mmHg): 204/91/129
LV (s/x mmHg): 210/25
PCWP (a/v/x mmHg): 30/57/26
PA (s/d/x mmHg): 81/33/49
RV (s/x mmHg): 81/15
RA (a/v/x mmHg): 16/19/15
SVC SvO2 (%): 61.3
PA SvO2 (%): 54.4
SaO2 (%): 92.0
Hbg (g/dL): 7.7
CO (L/min): 5.01
CI (L/min/m2): 2.83
TPG (mmHg): 23
PVR (Singh Units): 4.59
SVR (dynes*seconds*cm^-5): 1820
AVO2 Diff (Volume %): 3.94
AV gradient (x, mmHg): 13.29
AV area (cm2): 1.8
LEFT VENTRICULOGRAPHY: Performed in an CABRAL projection. Mild left ventricular dilation. There is mild global hypokinesis with mildly reduced systolic function. LV ejection fraction estimated at 45%. There is no mitral valve regurgitation. There
is no aortic valve insufficiency.
CORONARY ANGIOGRAPHY
Dominance: Right.
Left Main: Normal size, bifurcating vessel. There is a 60-70% tapering of the distal vessel leading into the LAD and circumflex.
LAD: Normal size vessel giving rise to 1 significant diagonal. The proximal vessel is severely calcified. There is a 90% lesion in the proximal LAD. The mid LAD is chronically totally occluded. The mid and distal LAD are supplied by a patent
FORD graft.
Ramus: Congenitally absent.
Circumflex: Normal size, nondominant vessel. The vessel is chronically totally occluded in its proximal margin. The obtuse marginal is supplied by patent sequential vein graft.
RCA: Normal size, dominant vessel with an anterior origin. Angiography performed with a nonselective injection due to difficulty engaging. The vessel is diffusely diseased and chronically occluded in its distal margin. The RPDA is supplied by
patent sequential vein graft.
BYPASS GRAFT ANGIOGRAPHY
FORD to LAD: Normal size graft with end-to-side anastomosis to the mid LAD. There is no evidence of stenosis or graft degeneration.
SVG to RPDA to OM: Normal size graft with [id number] anastomosis to the RPDA and end-to-side anastomosis to the obtuse marginal. A patent stent is visible in the proximal graft. There is no further evidence of stenosis or graft degeneration.
INTERVENTIONS
None.
Closure Device: Vascular band for the left radial artery, manual pressure for the left antecubital vein.
Radiation dose (mGy): 437.83
DAP (cm2.Gy): 34. 6552
Fluoroscopy time (minutes): 8.2
Sedation time (minutes): 24
CONCLUSIONS:
1. Right dominant circulation with chronic total occlusion of the distal RCA, chronic total occlusion of the left circumflex, 60-70% tapering of the distal left main, a 90% proximal LAD lesion and chronic total occlusion of the mid LAD status post
prior bypass (patent FORD to LAD, patent sequential SVG to RPDA to OM) with patent stent in the proximal SVG.
2. Severely elevated filling pressures (LVEDP = 25 mmHg, PCWP = 26 mmHg at 71.7 kg).
3. Mild reduction in systolic function, LVEF estimated at 45% with mild global hypokinesis.
4. Mild aortic valve stenosis (mean gradient = 13.29 mmHg, estimated valve area = 1.8 cm�).
5. 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
6. Significant arterial hypertension while in the Pneumatic Tester. In consultation with his daughter, it is revealed that this is likely due to anxiety as the patient's blood pressures are typically 110/60 at home.
RECOMMENDATIONS:
1. Expectant management after cardiac catheterization via left radial and antecubital approach.
2. Limited weight bearing on the left wrist for one week.
3. Start furosemide 40 mg p.o. daily for severely elevated filling pressures.
4. Careful outpatient monitoring of arterial blood pressure for risk factor modification and appropriate titration of GDMT.
5. Continue high-dose, high potency statin.
6. Continue to hold rivaroxaban. At this time, we will discontinue aspirin and clopidogrel given his peptic ulcer disease and upcoming EGD.
7. BMP and CBC in 1 week to monitor renal function in light of diuretic initiation and progressive anemia.
8. Outpatient echocardiogram.
Copy to: Adrián Lyons M.D., Da Merritt M.D.
Raul Greenfield DO, FACC, FACP
[2024-03-12] MEDS: LASIX 40 MG IV (09:40)
== END 2024-03-12 16:12 | disposition home or self-care (01) ==
LOC: CATH 06:08
PROVIDERS: ATTENDING PHYSICIAN Internal Medicine Cardiovascular Disease; FAMILY PHYSICIAN Internal Medicine; OTHER PHYSICIAN Internal Medicine Cardiovascular Disease
DX: I25.10 Atherosclerotic heart disease of native coronary artery without angina pectoris (principal); R06.09 Other forms of dyspnea; I35.0 Nonrheumatic aortic (valve) stenosis; I48.91 Unspecified atrial fibrillation; I11.0 Hypertensive heart disease with heart failure; I50.9 Heart failure, unspecified; E78.00 Pure hypercholesterolemia, unspecified; I25.2 Old myocardial infarction; Z95.1 Presence of aortocoronary bypass graft; Z87.891 Personal history of nicotine dependence; Z79.02 Long term (current) use of antithrombotics/antiplatelets; Z79.82 Long term (current) use of aspirin
CPT/HCPCS: 80053; 85027; 93461; C1894; Q9967

== ENCOUNTER 2024-04-18 06:23 | Day surgery (SDC) | payer OTHER, SELFPAY | END 2024-04-18 12:06 | disposition home or self-care (01) | LOC: GI 06:23 | PROVIDERS: ATTENDING PHYSICIAN Internal Medicine | DX: K22.89 Other specified disease of esophagus (principal); K31.89 Other diseases of stomach and duodenum; K29.70 Gastritis, unspecified, without bleeding; Z87.11 Personal history of peptic ulcer disease | CPT/HCPCS: 43235 ==

== ENCOUNTER 2024-06-19 02:00 | Inpatient (IN) | payer OTHER, SELFPAY ==
[2024-06-18 22:33] VITALS: BP 115/45
[2024-06-18 22:58] LABS: % Basophils 0.3 % (0-2); % Eosinophils 0.2 % (0-6); % Immature Granulocytes 0.4 % (0-0.5); % Lymphocytes 8.5 % (20.5-51.1); % Monocytes 11.4 % (1.7-9.3); % Neutrophils 79.2 % (42.2-75.2); Absolute Immature Granulocytes 0.1 10^3/uL (0-0.05); Absolute Lymphocytes 1.2 10^3/uL (1.2-3.4); Absolute Monocytes 1.6 10^3/uL (0.1-0.6); Absolute Neutrophils 11.3 10^3/uL (1.4-6.5); Hematocrit 24.1 % (39.0-52.0); Hemoglobin 7.4 g/dL (13.0-18.0); Mean Corp Hgb Conc. 30.7 g/dL (33.0-37.0); Mean Corpuscular Hgb 24.9 pg (27.0-31.0); Mean Corpuscular Volume 81.1 fL (80.0-94.0); Mean Platelet Volume 9.5 fL (7.4-10.4); Nucleated Red Blood Cells % 0.3 % (-); Platelet Count 428 10^3/uL (130-400); Red Blood Cell Count 2.97 10^6/uL (4.70-6.10); Red Cell Dist. Width 16.9 % (11.5-14.5); White Blood Cell Count 14.3 10^3/uL (4.8-10.8)
[2024-06-18 23:24] LABS: NT-proBNP 4970 pg/ml; Troponin I 0.095 ng/ml
[2024-06-18 23:28] VITALS: BMI 22.2
--- NOTE | 2024-06-18 23:30 | EDRN ---
Pt says he has had sob since this morning. Pt feels it is hard to breathe while lying on stretcher. Pt notes a pounding headache that started couple weeks ago 'My head goes round and round.' Son-in-law (FAIZAN) says he checked a pulse ox at home and
it was 80%, usually in high 90's, SBP 155. Pt started plavix 3-4 weeks ago and stopped his aspirin. Pt has had intermittent abd pain for past few weeks. Pt did no eat dinner tonight because he did not feel like eating. Pt has felt cold. No cp,
n/v/d/c, fever/cough, urinary symptoms. No blood in stools. Pt with known bleeding ulcer that was treated.
[2024-06-18 23:32] LABS: ALT (SGPT) 17 U/L (0-50); AST (SGOT) 27 U/L (17-59); Albumin 4.9 g/dl (3.5-5.0); Alkaline Phosphatase 159 U/L (38-126); Blood Urea Nitrogen 43 mg/dl (9-20); Calcium 9.5 mg/dl (8.4-10.2); Carbon Dioxide 19 mmol/L (22-30); Chloride 100 mmol/L (98-107); Estimated Creatinine Clearance 22 ml/min; Glucose 162 mg/dl (70-99); Potassium 5.1 mmol/L (3.5-5.1); Sodium 137 mmol/L (135-145); Total Bilirubin 2.3 mg/dl (0.2-1.3); Total Protein 7.6 g/dl (6.3-8.2); eGFR 25.48
[2024-06-18 23:52] VITALS: BP 132/57
[2024-06-19] VITALS (54 sets, daily range): BP systolic 100–147; BP diastolic 37–85; BMI 21.9
[2024-06-19] MEDS: CORDARONE 103 MG IV ×2 (00:06→01:06)
--- NOTE | 2024-06-19 00:10 | EDRN ---
Pt given 150mg amiodarone IVP per VO Dr Warner which he put in comment section of the order signed off as given. Pharmacy informed, waiting for IV infusion of amiodarone.
--- NOTE | 2024-06-19 00:20 | ED.GENMED ---
History of Present Illness
General
Chief Complaint: Breathing Problem
Source: patient, records, family and previous hospital records
Exam Limitations: clinical condition
Time Seen by Provider: 06/18/24 23:55
Nursing documentation reviewed up to this point in time: agreed with
History of Present Illness
History of Present Illness:
88-year-old male A-fib CAD cardiomyopathy renal insufficiency presents with fatigue weakness shortness of breath for few weeks had an outpatient Holter monitor just turned in yesterday has had some headaches is starting Plavix, history of GI
bleeding, some near syncopal events with no head trauma by report takes amiodarone 200 Sunday only new medication is Plavix, here looks to be in a wide-complex rhythm, correlating with his symptoms
Past History
Past History
ED Past Medical History: Arrthythmia (afib), CHF, CVA, HTN, Hypercholesterolemia, NE and Other (Anemia, Diverticulitis, Bowel obstruction, Anemia, Colitis, Ulcers, UTi)
ED Past Surgical History: Appendectomy, Cardiac (CABG) and Orthopedic (Bilateral knee replacement)
Patient has exhibited threatening behavior?: No
Social History
Tobacco: Non-smoker
Alcohol: None
Personal:
Living: alone
Employment: Retired
Review of Systems
Review of Systems
All Other Systems: Not applicable
Constitutional: Reports fatigue; Denies fever
Respiratory: Reports trouble breathing
Cardiac: Reports palpitations and syncope; Denies chest pain or diaphoresis
Musculoskeletal: Reports no symptoms
Neurological: Reports dizzy, headache and weakness
Phy Exam
Physical Exam
Physical Exam:
Physical Exam
General: Ill-appearing male
Neck: No tongue bite no overt signs of head or neck
Heart: Irregular
Lungs: Tachypneic no wheeze
Abdomen: Not
Neuro: alert and oriented. no focal neurological deficits
Skin: no rash
Psychiatric: well kept. interactive and cooperative
Extremities: Edema is from
Scores
Heart Failure Risk
Heart Failure Risk Score: Not Applicable
Course
Orders/Labs/Results
Orders:
Orders
06/18/24 22:42
Electrocardiogram (*1) Urgent
Reason for Study: Shortness of Breath
EKG- Treatment ONCE
06/18/24 22:50
Complete Blood Count/With Diff Urgent
Comprehensive Metabolic Panel Urgent
Magnesium Urgent
Comment: ADD ON
NT-proBNP Urgent
Troponin I Urgent
06/18/24 23:51
Type And Crossmatch [Type+Screen] Urgent
06/19/24 00:01
Amiodarone [Cordarone] 150 mg .ROUTE .STK-MED ONE
06/19/24 00:02
Add On- LAB Urgent
Tests Added?: magnesium
CR Chest Portable - 1 View Urgent
Comment:
Reason For Exam: sob
Reason Study Needs to be Portable: Patient Unstable
06/19/24 00:03
Bladder Scan- Treatment ONCE
06/19/24 00:07
Amiodarone [Cordarone] 150 mg Dextrose 5%/Water 100 ml [D5w] 100 ml IV NOW
06/19/24 00:15
Amiodarone [Cordarone] 900 mg DEXTROSE 5% PVC-free BAG [D5W PVC-free BAG] 500 ml IV PER PROTOCOL
Initial Dose in mg/min:: 1
Duration of initial dose (hours):: 6
Subsequent dose in mg/min:: 0.5
Duration of subsequent dose (hours):: 18
Maximum dose in mg/min:: 1
Hold and notify provider if:: Heart rate < 60 BPM or SBP < 90 mmHg or MAP < 60 mmHg
06/19/24 00:45
0.9% Sodium Chloride 1000 ml [Nss] 1,000 ml IV 125 mls/hr
06/19/24 01:05
Amiodarone [Cordarone] 150 mg .ROUTE .STK-MED ONE
Amiodarone [Cordarone] 150 mg Dextrose 5%/Water 100 ml [D5w] 100 ml IV NOW
06/19/24 01:26
Admit/Transfer Patient As Directed
Co-Sign Provider:
Level of Care: Inpatient admission
Assign to:: ICU
Physician / Group: Wu
Diagnosis: VT / Arrhythmia
Reason for Hospitalization: VT / Arrhythmia
Expected length of stay greater than two midnights?: Yes
ELOS- Estimated Length of Stay in days: 3
I certify the patient meets the requirements for IP care: Yes
PRN Pain Medication Management As Directed
May give lesser potent ordered pain med per pt: Yes
preference::
Protocol:: Medication orders for pain may be administered in a
manner that supports deferring to patient preference
when the pt is:
- Requesting an ordered lesser potent pain medication.
Least to most potent pain medications are defined
as: acetaminophen < NSAID < tramadol < opioids
(morphine, oxycodone, hydromorphone).
- Requesting a lesser dose of the same medication IF
ORDERED.
- Requesting a less intrusive route of administration
if both routes are prescribed by the provider (PO <
IV).
06/19/24 01:28
Code Status As Directed
Resuscitation Status: Full Code
06/19/24 02:09
Lactic Acid Q6H
Troponin I Q6H
Acetaminophen [Tylenol] 650 mg PO Q4HPRN PRN
Heparin 30093 Units/250 ml 25,000 units in 250 ml IV PER PROTOCOL
Weight to be used for heparin protocol in kilograms (kg):: 70.2
Protocol:: Cardiac Tx/Acute Coronary
PTT Goal Range to be used:: PTT 73 to 111 seconds
Order type:: Initial
INITIAL Infusion Dose (UNITS/KG/hr) & then follow protocol:: 12 units/kg/hr
Infusion Dose in UNITS/hr & then follow protocol (UNITS/hr):: 850
INFUSION RATE in mL/hr & then follow protocol (mL/hr):: 8.5
PTT less than or equal to 64 seconds:: Increase rate by 200 units/hr (+ 2 mL/hr)
PTT 64.1 to 72.9 seconds:: Increase rate by 100 units/hr (+ 1 mL/hr)
PTT 73 to 111 seconds:: Target Range. No change in rate.
PTT 111.1 to 130.9 seconds:: Decrease rate by 100 units/hr (- 1 mL/hr)
PTT 131 to 199.9 seconds:: HOLD for 1 hr. Then decrease rate by 200 units/hr (- 2 mL/hr)
PTT greater than or equal to 200 seconds:: HOLD for 2 hrs & Notify Provider. Then decrease by 200 units/hr (-
2 mL/hr)
Lab follow-up:: Each change, PTT q6h until 2 consecutive are therapeutic. Then PTT
daily.
06/19/24 02:09
Blood Bank Products [* Blood Bank Products] Urgent
Dr's Orders: Transfuse 1 unit PRBCs
Blood Bank Products: *Packed RBC Leuko(PRBC's)
Quantity: 1
Transfuse Today: Yes
Reason: Anemia
Echo 2D MMode Doppler [Echo 2D MMode Color/Doppler] Routine
Reason for Study: VT / Arrhythmia
CARDIOLOGY CONSULT Routine
Consulting Provider: Carlos Gimenez
Was physician already notified: Yes
Reason for consult: VT / Arrhythmia
Consult Notification Routine
Specialty to Notify: Medical Assistant Instructor
Medical Assistant Instructor Consult Routine
Consulting Provider: Hank George
Was physician already notified: No
Reason for consult: VT / Arrhythmia
Complete Blood Count/No Diff Urgent
Comment: Obtain baseline before beginning heparin infusion if not already collected
PTT Urgent
Comment: Obtain baseline before beginning heparin infusion if not already collected
TSH Reflex To Free T4 Routine
Heparin Protocol- PTT Orders As Directed
PTT per Heparin protocol: -Obtain CBC and baseline PTT - if not already collected.
-Obtain PTT 6 hours from start of infusion. Then, every 6 hours until 2 consecutive
PTT's are therapeutic. Then, PTT Daily.
-With each rate change, obtain PTT every 6 hours until 2 consecutive PTT's are
therapeutic. Then, PTT Daily.
Activity As Directed
Activity Level: Bedrest
Bladder Scan As Directed
Follow Bladder Retention/Intermittent Cath Algorithm?: Yes
PRN if no void in __ hours: 6
Frequency: Per Retention Algorithm
If Bladder Scan Result >: 400
then:: Straight cath
EKG with chest pain [ECG as needed] As Directed
ECG as needed for:: Chest Pain
Hemetest Stools As Directed
I/O [Intake/ Output] As Directed
Frequency: Per unit guidelines
Notify MD As Directed
Notify physician if: PTT is greater than or equal to 200.
Straight Cath As Directed
Frequency: Per Retention Algorithm
Additional Instructions: straight cath as needed per acute urinary retention algorithm for 24 hrs
Additional Instructions: for bladder scan greater than 400 mL
Vital Signs As Directed
Frequency: Per unit guidelines
Weight As Directed
Frequency: Daily
CR Elbow - Right Min 3 Views Routine
Comment:
Reason For Exam: Pain / swelling
Oxygen Therapy [O2 Therapy] [RESP] Routine
Titrate/Wean O2 to maintain O2 sat greater than (%): 94
06/19/24 06:00
EKG [Electrocardiogram (*1)] IN AM
Reason for Study: Chest Pain
NPO
Allow oral meds: Yes
Allow clear liquids: Sips of Clears
Basic Metabolic Panel IN AM
Complete Blood Count/No Diff IN AM
Magnesium IN AM
06/19/24 08:00
Aspirin Chewable [Low Strength Aspirin] 81 mg PO DAILY
Furosemide [Lasix] 40 mg IV DAILY
Pantoprazole [Protonix IV] 40 mg IV BID
06/19/24 08:09
Lactic Acid Q6H
Troponin I Q6H
06/19/24 14:09
Troponin I Q6H
06/21/24 06:00
Complete Blood Count/No Diff Q2D
Comment: Notify MD if platelet count is <130,000 or decreases by 50% from baseline
06/23/24 06:00
Complete Blood Count/No Diff Q2D
Comment: Notify MD if platelet count is <130,000 or decreases by 50% from baseline
06/25/24 06:00
Complete Blood Count/No Diff Q2D
Comment: Notify MD if platelet count is <130,000 or decreases by 50% from baseline
06/27/24 06:00
Complete Blood Count/No Diff Q2D
Comment: Notify MD if platelet count is <130,000 or decreases by 50% from baseline
06/29/24 06:00
Complete Blood Count/No Diff Q2D
Comment: Notify MD if platelet count is <130,000 or decreases by 50% from baseline
07/01/24 06:00
Complete Blood Count/No Diff Q2D
Comment: Notify MD if platelet count is <130,000 or decreases by 50% from baseline
07/03/24 06:00
Complete Blood Count/No Diff Q2D
Comment: Notify MD if platelet count is <130,000 or decreases by 50% from baseline
07/05/24 06:00
Complete Blood Count/No Diff Q2D
Comment: Notify MD if platelet count is <130,000 or decreases by 50% from baseline
Abnormal Lab Results
06/18/24 06/18/24
22:50 23:51
WBC 14.3 H 10^3/uL
(4.8-10.8)
RBC 2.97 L 10^6/uL
(4.70-6.10)
Hgb 7.4 L g/dL
(13.0-18.0)
Hct 24.1 L %
(39.0-52.0)
MCH 24.9 L pg
(27.0-31.0)
MCHC 30.7 L g/dL
(33.0-37.0)
RDW 16.9 H %
(11.5-14.5)
Plt Count 428 H 10^3/uL
(130-400)
Abs Immat Gran (auto) 0.1 H 10^3/uL
(0-0.05)
Absolute Neuts (auto) 11.3 H 10^3/uL
(1.4-6.5)
Absolute Monos (auto) 1.6 H 10^3/uL
(0.1-0.6)
Neutrophils % 79.2 H %
(42.2-75.2)
Lymphocytes % 8.5 L %
(20.5-51.1)
Monocytes % 11.4 H %
(1.7-9.3)
Carbon Dioxide 19 L mmol/L
(22-30)
BUN 43 H mg/dl
(9-20)
Creatinine 2.4 H mg/dL
(0.7-1.3)
Glucose 162 H mg/dl
(70-99)
Magnesium 2.5 H mg/dl
(1.6-2.3)
Total Bilirubin 2.3 H mg/dl
(0.2-1.3)
Alkaline Phosphatase 159 H U/L
(38-126)
Troponin I 0.095 H* ng/ml
Crossmatch IS Only See Detail
06/18/24 22:50
06/18/24 22:50
Vital Signs
Initial and Last Documented VS:
Initial Vital Signs
Temp Pulse Resp BP Pulse Ox
98.6 F 104 26 115/45 100
06/18/24 22:33 06/18/24 22:33 06/18/24 22:33 06/18/24 22:33 06/18/24 22:33
Last Documented Vital Signs
Temp Pulse Resp BP Pulse Ox
98.6 F 41 22 118/43 94
06/18/24 22:33 06/19/24 01:45 06/19/24 01:45 06/19/24 01:42 06/19/24 01:45
*Radiology
Radiology exam reviewed: preliminary read by ED provider
*Pulse Oximetry
Patient hypoxic: no
*EKG
Interpreted by ED Provider?: Yes
Interpretation: abnormal
Comparison EKG: no comparison EKG present
Heart Rate: 48
Rate: normal
Rhythm: a-fib
Ischemia: non-specific ST changes
*Forestry Supervisor Interpretation
Rate: tachycardiac
Interpretation: abnormal
Heart Rate: 140
Rhythm: other (PT)
*Critical Care Note
Total Time (30-74mins, 75-104mins- exclusive of procedures): 45
Update Note
Update Note:
Update complicated past medical history, prior records briefly reviewed, looks like he has runs of VT versus AF with aberrancy treated with IV amiodarone here also looks like he is in renal insufficiency possibly heart failure, lastly his hemoglobin
is low chronic issue denies any dark or bloody stools has given his consent for blood,
Update chest x-ray noted does not look like heart failure although he does have lower extremity edema oxygenating well will start on saline hydration hold his diuretic for now check bladder scan also will check rectal exam for occult blood
Confirmed his advance directive full code
Update another run of VT for since he received a bolus drip is going in this point we will hold on CT of the head and cervical spine he has no overt signs of trauma do not believe he is can go to lie flat
ED Attending Note
-
Portions of this chart may have been created with voice recognition software.� Occasional wrong word or��sound alike� substitutions may have occurred due to the inherent limitations of voice recognition software.
Discharge Plan
Departure
Patient Disposition: Admit
Date of Disposition: 06/19/24
Time of Disposition: 01:11
Admit to: ICU
Presentation/result/management discussed w/ accepting MD/DO: Hospitalist
Patient with high blood pressure during this ER visit?: No
Condition: Serious
Covid-19: Not Applicable
Discharge Problem:
Ventricular tachycardia (paroxysmal), Hiatal hernia, Paroxysmal atrial fibrillation, Essential (primary) hypertension, Atrial flutter, YARA (acute kidney injury)
Interventions
Interventions:
*Risk Screen - Suicide Last Done: 06/18/24 22:33
*General Assessment Last Done: 06/18/24 23:29
*Neglect/Abuse Screening Last Done: 06/18/24 22:33
ED- Fall Risk Assessment Last Done: 06/19/24 00:00
*ED COVID-19 Vaccine History Last Done: 06/18/24 23:29
ED- Cardiac Assessment Last Done: 06/19/24 00:00
ED- Neurological Assessment Last Done: 06/19/24 00:00
ED- Pulmonary Assessment Last Done: 06/19/24 00:00
[2024-06-19] MEDS: CORDARONE 518 MG IV (00:33)
--- NOTE | 2024-06-19 00:34 | EDRN ---
This RN attempted second IV access R wrist without success - Carissa from [facility] at bedside to obtain additional iv access.
[2024-06-19] MEDS: NSS 1000 IV (00:41)
--- NOTE | 2024-06-19 01:02 | EDRN ---
Pt had run VT and started shaking, eyes to left - Dr Warner to bedside. Longest run since amiodarone infusion started
[2024-06-19 01:06] LABS: Magnesium 2.5 mg/dl (1.6-2.3)
--- NOTE | 2024-06-19 01:13 | EDRN ---
Pt was bladder scanned for 106ml - shortly after, pt asked to use urinal which EDT assisted pt with using it. Pt had a second run of VT after the documented one at 0102, Natalya Warner and Wu to bedside - pt's arms spread wide, eyes rolled back in
head and whole body shook during VT. Pt given second 150mg amiodarone IVP per Dr Warner. Dr Washburn speaking with pt and his FAIZAN
--- NOTE | 2024-06-19 01:34 | HPS.HSE ---
Family Physician
-
Family Physician: Da Merritt MD
Chief Complaint
-
Dizziness, SOB
History of Present Illness
Patient is an 88y M with PMH significant for ASCVD, hypertension and A-Fib who presents to ED complaining of SOB. History obtained from patient and son-in-law at the bedside. Patient reports SOB for the past week. He denies any fever, cough,
chest pain, etc. He reports headache that has been present for the past 2-3 weeks - this seemed to begin after he changed from ASA to Plavix. He has been unsteady on his feet and has had 3 falls in the past 2 weeks as well. he complains of pain
in the R elbow which started after a recent fall. He denies any head injury or other significant pain following the falls.
Patient was seen by his Hr Clerk and a Holter was arranged over the past weekend. Patient apparently felt fairly well over the weekend and had no falls or other episodes.
Today at home he complained of more SOB. Family noted that his oxygen saturation was low and his BP was quite variable. He had an episode wherein his eyes 'rolled back in his head and he started shaking' and he was brought to the ED for further
evaluation.
Patient has had multiple similar episodes here in the ED. He is noted to be in VT or A-Fib with aberrancy on telemetry when these instances occur.
Patient received 150mg IV amiodarone and was started on infusion. He had another episode and was given an additional 150mg loading dose.
Medical History
Past Medical History
Past Medical History: Reports Other
Additional Past Medical History:
ASCVD
Paroxysmal Atrial Fibrillation
Hyperlipidemia
Paraesophageal Hernia / Gastric Volvulus
Gastric Ulcer
BPH
Depression
Past Surgical History: Reports Other
Additional Past Surgical History:
CABG
Bilateral TKA
RUE Bone Stimulator
Paraesophageal Hernia Repair / Gastropexy
Cholecystectomy
Social History
Tobacco: Former Smoker (Quit many years ago.)
Alcohol: None
Drug: None
Family History
Family History: Other (Father: CAD Mother: Longevity)
Allergies / Home Medications
Allergies reflects when Allergies were last updated in [facility].
Home Medications with original date entered in [facility]
Allergy/Medication List:
Allergies
Allergy/AdvReac Type Severity Reaction Status Date / Time
No Known Allergies Allergy Verified 06/18/24 23:42
Home Medications
finasteride 5 mg tablet 5 mg PO HS Urinary issue 03/05/20
cyanocobalamin (vitamin B-12) 1,000 mcg tablet 1,000 mcg PO DAILY Supplement 01/25/21
amiodarone 200 mg tablet (Pacerone) 200 mg PO MOWEFR Arrhythmia 11/02/21
atorvastatin 40 mg tablet 40 mg PO HS High Cholesterol 12/19/22
cetirizine 10 mg tablet (Zyrtec) 10 mg PO HS Allergies 12/31/23
magnesium oxide 500 mg PO DAILY Supplement 12/31/23
zinc sulfate 50 mg zinc (220 mg) tablet 50 mg PO DAILY Supplement 12/31/23
pantoprazole 40 mg tablet,delayed release 40 mg PO DAILY Gastrointestinal Issue 02/28/24
Probiotic 100 mg PO DAILY 06/18/24
ascorbic acid (vitamin C) 1,000 mg tablet 1,000 mg PO DAILY 06/18/24
clopidogrel 75 mg tablet 75 mg PO DAILY 06/18/24
duloxetine 30 mg capsule,delayed release 30 mg PO DAILY 06/18/24
furosemide 40 mg tablet 40 mg PO Q48H 06/18/24
rivaroxaban 15 mg tablet 15 mg PO DAILY 06/18/24
spironolactone 25 mg tablet 25 mg PO MOWEFR 06/18/24
Review of Systems
-
History Source: Patient
A 12 point ROS was completed and negative except as noted: Yes
Constitutional: Reports Fatigue; Denies Fever or Chills
EENT: Denies Sore Throat
Respiratory: Reports Trouble Breathing; Denies Cough
Cardiac: Reports Syncope; Denies Chest Pain, Diaphoresis or Palpitations
Abdomen/GI: Reports Abdominal Pain; Denies Nausea, Vomiting or Diarrhea
: Denies Dysuria, Frequency or Flank Pain
Musculoskeletal: Denies Joint Pain or Edema
Neurological: Reports Headache and Weakness; Denies Dizzy or Numbness
Psych: Denies Depression or Anxiety
Physical Exam
Vital Signs
Vital Signs
Temp Pulse Resp BP Pulse Ox
98.6 F 48 24 147/39 100
06/18/24 22:33 06/19/24 01:15 06/19/24 01:15 06/19/24 01:01 06/19/24 01:00
Physical Exam
General: Other (88y M in mild distress due to dyspnea / fatigue.)
HEENT: Moist mucous membranes and PERRLA
Respiratory: Other (Decreased at bases - otherwise clear. No W/R/R.)
Cardiac: S1/S2, Irregular Rhythm and Murmur (II/ CAT)
GI: Soft, Non Distended, Normal Bowel Sounds and Other (Mildly diffusely tender.)
Musculoskeletal: No Clubbing, No Cyanosis and Other (Trace - 1+ pedal edema.)
Neuro: Awake, Alert and Nonfocal/grossly intact
Laboratory Results
-
06/18/24 22:50
06/18/24 22:50
Laboratory Results
Total Bilirubin 2.3 mg/dl (0.2-1.3) H 06/18/24 22:50
AST 27 U/L (17-59) 06/18/24 22:50
ALT 17 U/L (0-50) 06/18/24 22:50
Alkaline Phosphatase 159 U/L (38-126) H 06/18/24 22:50
Troponin I 0.095 ng/ml H* 06/18/24 22:50
Impression/Plan
-
A/P: Patient is an 88y M with PMH significant for ASCVD, A-Fib and hypertension who presents to ED for evaluation of syncopal episode / shaking episode and recent SOB / PARTIDA.
Syncope
VT versus A-Fib with Aberrancy
Paroxysmal Atrial Fibrillation
- Admit to ICU for further evaluation and treatment.
- Amio load (300mg total) given in the ED - continue infusion per protocol.
- Monitor clinically / on telemetry for additional episodes.
- ? addition of lidocaine if needed for additional arrhythmia.
- Cardiology consulted for additional recommendations.
- Update Echo - last done 12/2023 with LVEF = 65-70% and moderate - severe . RV dilation, LAE.
- Cath done 02/2024 with LVEF = 45% and mild .
- Magnesium / other electrolytes are unremarkable at present.
- Check TFTs.
- Hold Xarelto acutely. IV heparin for now.
Abnormal Troponin
ASCVD
- Uncertain type at present.
- Mild elevation not inconsistent with prior values he has had.
- SOB but no chest pain. Arrhythmia could be result of new ischemia.
- Change Plavix back to ASA.
- IV heparin for now.
- Follow troponin to peak.
- Cardiology eval for additional recommendations.
Acute on Chronic Normocytic Anemia
GERD / PUD
- Hgb today is 7.4 compared to baseline in the 8-9 range.
- Would transfuse 1 unit PRBCs now given active cardiac arrhythmia / issues.
- Had gastric ulcer on EGD last admission (12/2023). Resolved on follow-up done 03/2024.
- BID PPI. Heme test stools.
- Follow H&H for changes and provide additional blood product support as needed.
Chronic HFpEF
- Complains of SOB - but seems likely reflection of arrhythmia and not volume overload.
- Lasix IV daily for now (in lieu of PO Lasix and spironolactone).
- Follow I/Os, daily weights, etc.
- Update Echo as noted above.
YARA on CKD III
Anion Gap Metabolic Acidosis
- SCr = 2.4 compared to prior baseline of 1.8.
- AG on admission = 18.
- Likely due to decreased perfusion / arrhythmia.
- Check lactate.
- Follow for changes with current management.
Headache
- Patient had similar posterior headache on prior admission - ultimately due to worsened anemia.
- Treat anemia / transfusion as noted above.
- Change Plavix back to ASA as symptoms seemed to begin with this change.
- Patient is awake and alert (between arrhythmia episodes) and has no focal findings on exam.
Right Elbow Pain
- Patient with bone stimulator in place R elbow (old).
- Also with tenderness / edema over the medial aspect of the elbow.
- Check x-ray for evidence of acute fracture / trauma due to recent fall(s).
BPH
- Stable. Bladder scan protocol.
DVT Prophylaxis: On IV Heparin
Code Status: Full
--- NOTE | 2024-06-19 01:41 | EDRN ---
Amiodarone protocol state to stop infusion for HR less than 60bpm and notify provider. Dr Washburn aware pt's HR AFib 30-40's and said to continue amiodarone infusion.
--- NOTE | 2024-06-19 01:57 | EDRN ---
Report given to Laine in ICU
--- NOTE | 2024-06-19 02:20 | PTCARENOTE ---
rec`d pt at 0220 from ED. drowsy but oriented when woken up to verbal stimuli. amio gtt and NS. hearing aids on pt. afib on monitor with junctional. hr in 30s-40s. ED MD and PLANOGRAMMER aware. afebrile. +1 LINO. PIVs flushed and patent. RA POX 96%. clear,
dim lung sounds. NPO. +BS. condom cath. safe environment maintained. call riley in reach
--- NOTE | 2024-06-19 02:30 | PTCARENOTE ---
amio gtt turned off 0232 per MD orders.
[2024-06-19 03:30] LABS: Hematocrit 20.6 % (39.0-52.0); Hemoglobin 6.4 g/dL (13.0-18.0); Mean Corp Hgb Conc. 31.1 g/dL (33.0-37.0); Mean Corpuscular Hgb 25.2 pg (27.0-31.0); Mean Corpuscular Volume 81.1 fL (80.0-94.0); Mean Platelet Volume 9.6 fL (7.4-10.4); Platelet Count 357 10^3/uL (130-400); Red Blood Cell Count 2.54 10^6/uL (4.70-6.10); Red Cell Dist. Width 16.8 % (11.5-14.5); White Blood Cell Count 16.7 10^3/uL (4.8-10.8)
--- NOTE | 2024-06-19 03:30 | W.PN.UPDATE ---
Update Note
Progress Note Update
Patient in junctional rhythm, heart rate 30s sustaining, patient awake, alert, and conversing, with SBP 100-120s. Stopped amio gtt due to heart rate. Dr. Gimenez, control officer manager updated, agreed with holding amio gtt for now.
[2024-06-19 03:45] LABS: Lactic Acid 2.5 mmol/L (0.7-2.0)
[2024-06-19] MEDS: HEPARIN 25000 UNITS/250 ML IV (03:48)
[2024-06-19 03:49] LABS: Blood Urea Nitrogen 48 mg/dl (9-20); Calcium 8.6 mg/dl (8.4-10.2); Carbon Dioxide 21 mmol/L (22-30); Chloride 103 mmol/L (98-107); Estimated Creatinine Clearance 22 ml/min; Glucose 176 mg/dl (70-99); Magnesium 2.5 mg/dl (1.6-2.3); Potassium 4.7 mmol/L (3.5-5.1); Sodium 135 mmol/L (135-145); eGFR 26.81
[2024-06-19 04:17] LABS: Troponin I 0.115 ng/ml
[2024-06-19 04:31] LABS: TSH Reflex To Free T4 5.33 uIU/ml (0.47-4.68)
[2024-06-19 05:00] LABS: Free T4 1.34 ng/dl (0.78-2.19)
--- NOTE | 2024-06-19 08:05 | CON.CAR ---
Addendum entered and electronically signed by Emanuel Leach MD 06/19/24 10:08:
88 yo male with PMH of CAD/CABG, then SVG stent, ICM EF 45%, chronic HFmEF, permanent A fib on xarelto, bifascicular block, moderate is admitted with syncope. Patient reports recurrent dizziness/syncope over past 2 weeks. He reports symptoms
are mostly with position changes. However, in ED, had episode while sitting, and rhythm was polymorphic VT. He is without complaint at time of my exam. Exam with irregular rhythm, III/ systolic murmur at RUSB, trace LE edema. Cr 2.3 (YARA), Hgb
6.4, TnI 0.1. EKG: A fib slow response, bifascicular block. Tele captured polymorphic VT while in ED. Cath 02/2024: patent bypass grafts with patent stent to SVG.
Polymorphic VT with syncope. Discussed with EP. Will need ICD before discharge. But multiple issues need to be addressed: anemia, YARA, elevated WBC.
Check echo. If stable, will likely not need to repeat cath.
Became bradycardic on IV amiodarone. Will load with PO 400mg bid and trend tele.
Xarelto is held for anemia. Currently on heparin gtt: can stop if Hgb trends down. Did get pRBC.
Hold lasix for YARA.
Original Note:
Consultation
Consultation Request
Date/Time Consultation Requested: 06/19/24730
Date/Time Consultation Performed: 06/19/24 0805
Requesting Provider: Dr. Washburn
Performing Provider: Kaylan AKINS for Dr. Leach
Reason for Consultation: Arrhythmia
Medical History
-
Chief Complaint: dizziness, syncope
History of Present Illness:
88 y/o male (cardiology patient of Dr. Lyons) with atrial flutter on Xarelto, CAD with hx CABG (2006) and stenting, aortic stenosis- likely moderate, CM EF 45% per cath, HFmEF, anemia/GIB, RBBB/LAFB, hypertension, PUD, dyslipidemia who is here for
evaluation of episodes of dizziness/syncope. He has had about 4 episodes in the past 2 weeks. He generally notes it when going from sitting to standing. He does not get much warning 'almost immediate'. He feels dizzy/SOB and blacks out. He injured
his elbow with a fall in this setting. In the ER, he was seen to have recurrent symptoms that correlated with polymorphic VT per ER notes. IV amiodarone was administered. It was stopped overnight for bradycardia. At the time of my assessment, he is
calm and comfortable. He is also seen to have YARA, leukocytosis, elevated lactic acid, and worsened anemia. He denies any blood in urine or stool. Otherwise, he has reported headaches. Interestingly, he just had a Holter monitor, but he has not
heard results yet. No fever or chills. I am told he was recently changed from ASA to Plavix.
Past Medical History
Past Medical History: Arrhythmias, CAD, CHF, HTN, Hypercholesterolemia, Valvular Disease and Other (as above)
Social History
Tobacco: Former Smoker
Family History
Family History: Reviewed & Not Pertinent
Allergies / Home Medications
Allergy/AdvReac Type Severity Reaction Status Date / Time
No Known Allergies Allergy Verified 06/18/24 23:42
�Medication �Instructions �Recorded �Confirmed �Type
finasteride 5 mg tablet 5 mg PO HS Urinary issue 03/05/20 06/18/24 History
cyanocobalamin (vitamin B-12) 1,000 mcg PO DAILY Supplement 01/25/21 06/18/24 History
1,000 mcg tablet
amiodarone 200 mg tablet (Pacerone) 200 mg PO MOWEFR Arrhythmia 11/02/21 06/18/24 History
atorvastatin 40 mg tablet 40 mg PO HS High Cholesterol 12/19/22 06/18/24 History
cetirizine 10 mg tablet (Zyrtec) 10 mg PO HS Allergies 12/31/23 06/18/24 History
magnesium oxide 500 mg PO DAILY Supplement 12/31/23 06/18/24 History
zinc sulfate 50 mg zinc (220 mg) 50 mg PO DAILY Supplement 12/31/23 06/18/24 History
tablet
pantoprazole 40 mg tablet,delayed 40 mg PO DAILY Gastrointestinal 02/28/24 06/18/24 History
release Issue
Probiotic 100 mg PO DAILY 06/18/24 06/18/24 History
ascorbic acid (vitamin C) 1,000 mg 1,000 mg PO DAILY 06/18/24 06/19/24 History
tablet
clopidogrel 75 mg tablet 75 mg PO DAILY 06/18/24 06/18/24 History
duloxetine 30 mg capsule,delayed 30 mg PO DAILY 06/18/24 06/18/24 History
release
furosemide 40 mg tablet 40 mg PO Q48H 06/18/24 06/18/24 History
rivaroxaban 15 mg tablet 15 mg PO DAILY 06/18/24 06/18/24 History
spironolactone 25 mg tablet 25 mg PO MOWEFR 06/18/24 06/18/24 History
Review of Systems
-
History Source: Patient
All other systems: Negative unless noted
Respiratory: Trouble Breathing
Cardiac: Syncope
Neurological: Headache
Physical Exam
Vital Signs
Temp Pulse Resp BP Pulse Ox
98.4 F 52 21 127/43 95
06/19/24 05:44 06/19/24 05:44 06/19/24 05:44 06/19/24 05:44 06/19/24 05:44
Lab Results
06/19/24 02:56
06/19/24 02:56
Troponin I 0.115 ng/ml H* 06/19/24 02:56
Wtt-[id number]-[id number] Pept 4970 pg/ml 06/18/24 22:50
Physical Exam
General: Well Developed, Well Nourished and No Apparent Distress
HEENT: Normocephalic, Anicteric and Other (using hearing aides)
Respiratory: Clear and Non Labored Respirations
Cardiac: Irregular Rhythm
Musculoskeletal: Edema (trace BLE edema)
Skin: Warm and Dry
Neuro: AO x 3
Psych: Calm
Impression / Plan
-
Polymorphic VT, syncope:
-this diagnosis is threat to life
-was on IV amiodarone, but became bradycardia. We will add PO amio load and monitor telemetry
-will need ICD, and patient agreeable, but also currently with YARA, leukocytosis, and significant anemia, so timing TBD as w/u done for other issues by primary team
-echo this AM
-recent cath as below
-case to be discussed with EP
CAD with hx CABG and stenting:
-recent cath as below
-on ASA here- continue. Plavix held.
-no CP
Abnormal troponin:
-denies CP
-likely non-ischemic myocardial injury in setting of YARA, anemia, arrhythmia
-checking echo
-trend to peak
-currently on heparin drip since reasoning for elevated trop not totally clear, but may need to stop based on next hemoglobin
Anemia, [id number]:
-denies clinical bleeding
-s/p 1 unit PRBC
-repeat hgb pending
Atrial flutter, permanent:
-on Xarelto as OP, held and on heparin as above
-monitor rates with amio
HFmEF: chronic
-does not appear overloaded to assessment
-checking echo
-holding lasix this AM
YARA on CKD:
-nephro on the case
Data:
Cardiac cath 03/16/24: Right dominant circulation with chronic total occlusion of the distal RCA, chronic total occlusion of the left circumflex, 60-70% tapering of the distal left main, a 90% proximal LAD lesion and chronic total occlusion of the
mid LAD status post prior bypass (patent FORD to LAD, patent sequential SVG to RPDA to OM) with patent stent in the proximal SVG. Severely elevated filling pressures (LVEDP = 25 mmHg, PCWP = 26 mmHg at 71.7 kg). Mild reduction in systolic function,
LVEF estimated at 45% with mild global hypokinesis. Mild aortic valve stenosis (mean gradient = 13.29 mmHg, estimated valve area = 1.8 cm�). 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
output = 5.01 L/min, PVR = 4.59 Singh units), likely WHO group 2 and group 5. Significant arterial hypertension while in the [employer]. In consultation with his daughter, it is revealed that this is likely due to anxiety as the patient's blood
pressures are typically 110/60 at home.
Echo 01/01/24: EF 65-70%.Mild mitral stenosis. at least mild mitral regurgitation. Severely dilated left atrium. Indexed LA volume is severely abnormal (> 48 mL/m2). Moderate to severe aortic stenosis. Peak/mean gradients across the valve are 47/21
mmHg. Using an LVOT of 2.0 cm the calculated valve area is 0.9 cm2. Moderate tricuspid regurgitation. Estimated pulmonary artery pressure of 57 mmHg, assuming a right atrial pressure of 3 mmHg. Moderate pulmonary hypertension. Dilated right atrium.
Enlarged right ventricular size. Right ventricular hypokinesis.
Data Reviewed
-
EKG: Tracing Personally Visualized and interpreted (Aflutter bifasicular block 40 BPM)
Radiology: Report Reviewed by me (CXR: Small left pleural effusion. Mild patchy parenchymal opacity in the left lower lung, likely atelectasis.)
Medical Tests (Nuc Med, Echo etc): Report Reviewed by me (cath and echo as noted below)
Labs: Labs Reviewed by me
--- NOTE | 2024-06-19 08:18 | CON.INTV ---
Consultation
Consultation Request
Date/Time Consultation Requested: 06/19/2024208
Date/Time Consultation Performed: 06/19/2024809
Requesting Provider: Dr. Washburn
Performing Provider: Dr. George
Reason for Consultation: VT with bradycardia s/p amio
Medical History
-
Chief Complaint: Lightheaded/SOB
History of Present Illness:
88-year-old male former tobacco smoker with a past medical history of A-fib on Xarelto, history of HI, CAD s/p CABG, history of colonic polyps, anemia and history of diverticulitis who presents with worsening SOB and lightheadedness. He says that
he passed out while at registration here in the ER. He had a fall last week and fell onto his right elbow which has been bruised. He has not had a fever, cough or chest pain. Also has had a headache for the last 2 to 3 weeks which occurred after
change from aspirin to Plavix. He has had 3 falls in the last 2 weeks. He was recently seen by his charhouse worker and had a Holter monitor over this past weekend. He was more short of breath at home prior to arrival and his oxygen saturation was
low with variable BP. He had an episode where his eyes rolled to the back of his head and he started shaking and then he was brought here to the ER for further evaluation. In the ER, he was afebrile to 98.6 �F, pulse rate 104, breathing at 26
breaths/min, BP 115/45 and saturating 100% on room air. He was found to be in an arrhythmia thought to be either VT, torsades or A-fib with aberrancy. He received 1L NS 0.9% + 150 mg IV amiodarone and started on infusion which then caused
bradycardia. Amiodarone then stopped. Initial labs showed Hb 7.4, WBC 14.3, platelet count 428, creatinine 2.4, initial troponin 0.095, proBNP 4970, and TSH 5.33 with free T41.34. Initial CXR showed a small left-sided pleural effusion with a left
lower lobe patchy opacity, likely atelectasis. He was then transferred to the ICU for further care with intensive services consulted for additional management/recommendations.
Patient was seen and evaluated this morning. He is resting in bed in no acute distress. Hb 6.4 overnight, transfused 1 U PRBC. No additional runs of VT or TdP this AM. Hb 7 this AM. No bleeding seen. He is on heparin gtt. He has brown smears
of stool seen in bed. Plavix currently in hold. Amio off since overnight. HR now 60 with BP 118/61. He says that he feels much better now, denies shortness of breath or chest pain. Also no lightheadedness or headache currently.
PMHx: Heart bypass, A-fib on Xarelto, hypertension, colon polyps, history of CVA, history of HI, history of diverticulitis, anemia
PSHx: Hip replacement, bilateral knee replacement, CABG, laparoscopic paraesophageal hernia repair with anterior gastropexy, laparoscopic cholecystectomy with intraoperative cholangiogram
Past Medical History
Past Medical History: Other (Above as per HPI)
Past Surgical History: Other (Above as per HPI)
Social History
Tobacco: Former Smoker
Alcohol: None
Drug: None
Family History
Family History: Other (Father: Stroke at age 62)
Allergies / Home Medications
Allergies
Allergy/AdvReac Type Severity Reaction Status Date / Time
No Known Allergies Allergy Verified 06/18/24 23:42
Home Medications
�Medication �Instructions �Recorded �Confirmed �Last Taken �Type
finasteride 5 mg tablet 5 mg PO HS Urinary issue 03/05/20 06/18/24 03/11/24 20:00 History
cyanocobalamin (vitamin B-12) 1,000 mcg PO DAILY Supplement 01/25/21 06/18/24 03/11/24 08:00 History
1,000 mcg tablet
amiodarone 200 mg tablet (Pacerone) 200 mg PO MOWEFR Arrhythmia 11/02/21 06/18/24 03/10/24 08:00 History
atorvastatin 40 mg tablet 40 mg PO HS High Cholesterol 12/19/22 06/18/24 03/11/24 20:00 History
cetirizine 10 mg tablet (Zyrtec) 10 mg PO HS Allergies 12/31/23 06/18/24 03/11/24 20:00 History
magnesium oxide 500 mg PO DAILY Supplement 12/31/23 06/18/24 03/11/24 20:00 History
zinc sulfate 50 mg zinc (220 mg) 50 mg PO DAILY Supplement 12/31/23 06/18/24 03/11/24 20:00 History
tablet
pantoprazole 40 mg tablet,delayed 40 mg PO DAILY Gastrointestinal 02/28/24 06/18/24 03/11/24 20:00 History
release Issue
Probiotic 100 mg PO DAILY 06/18/24 06/18/24 Unknown History
ascorbic acid (vitamin C) 1,000 mg 1,000 mg PO DAILY 06/18/24 06/19/24 Unknown History
tablet
clopidogrel 75 mg tablet 75 mg PO DAILY 06/18/24 06/18/24 Unknown History
duloxetine 30 mg capsule,delayed 30 mg PO DAILY 06/18/24 06/18/24 Unknown History
release
furosemide 40 mg tablet 40 mg PO Q48H 06/18/24 06/18/24 Unknown History
rivaroxaban 15 mg tablet 15 mg PO DAILY 06/18/24 06/18/24 Unknown History
spironolactone 25 mg tablet 25 mg PO MOWEFR 06/18/24 06/18/24 Unknown History
Review of Systems
-
History Source: Patient
All other systems: Negative unless noted
Vitals / Labs / Diagnostic Testing
Vital Signs
Temp Pulse Resp BP Pulse Ox
98.4 F 60 22 117/59 95
06/19/24 05:44 06/19/24 08:50 06/19/24 08:50 06/19/24 08:50 06/19/24 08:50
Lab Data
06/19/24 02:56
Laboratory Results
06/19/24 06/19/24
02:56 09:24
APTT 50.0 H 106.2 H
Diagnostic Testing:
Physical Exam
-
HEENT: Normocephalic and Anicteric
Cardiovascular: S1/S2, Murmur (CAT, grade III/ heard across precordium) and Peripheral Edema (+1 lower extremity pitting edema bilaterally)
Respiratory: Wheeze (negative), Rales (negative), Rhonchi (negative) and Non-Labored Respirations
GI: Soft, Non Distended, Non Tender and Normal Bowel Sounds
Neurology: AO x 3 and Tremors (negative)
Skin: Warm, Dry and Other (Erythema, swelling + bruising seen on red right elbow)
General: Respiratory Distress (negative), Comfortable, Fever (negative) and Chills (negative)
Assessment
-
Assessment: 88-year-old male former tobacco smoker with a past medical history of A-fib on Xarelto, history of HI, CAD s/p CABG, history of colonic polyps, anemia and history of diverticulitis who presents with worsening SOB and lightheadedness.
He says that he passed out while at registration here in the ER. He had a fall last week and fell onto his right elbow which has been bruised. He has not had a fever, cough or chest pain. Also has had a headache for the last 2 to 3 weeks which
occurred after change from aspirin to Plavix. He has had 3 falls in the last 2 weeks. He was recently seen by his charhouse worker and had a Holter monitor over this past weekend. He was more short of breath at home prior to arrival and his oxygen
saturation was low with variable BP. He had an episode where his eyes rolled to the back of his head and he started shaking and then he was brought here to the ER for further evaluation. In the ER, he was afebrile to 98.6 �F, pulse rate 104,
breathing at 26 breaths/min, BP 115/45 and saturating 100% on room air. He was found to be in an arrhythmia thought to be either VT, torsades or A-fib with aberrancy. He received 1L NS 0.9% + 150 mg IV amiodarone and started on infusion which then
caused bradycardia. Amiodarone then stopped. Initial labs showed Hb 7.4, WBC 14.3, platelet count 428, creatinine 2.4, initial troponin 0.095, proBNP 4970, and TSH 5.33 with free T41.34. Initial CXR showed a small left-sided pleural effusion with
a left lower lobe patchy opacity, likely atelectasis. He was then transferred to the ICU for further care with intensive services consulted for additional management/recommendations.
Chronic conditions SEED SPECIALIST: Heart bypass, A-fib on Xarelto, hypertension, colon polyps, history of CVA, history of HI, history of diverticulitis, anemia
Impression:
#Syncope likely due to arrhythmia
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
#YARA on CKD
#Acute on chronic anemia (baseline Hb 8�9.5g/dL)
#Metabolic acidosis with preserved anion gap
#Lactic acidosis
#Elevated troponin likely due to demand ischemia with type II HI vs NSTEMI
#Elevated proBNP of 4970 (was 2310 on 02/28/2024)
#Multiple falls with right elbow trauma with elbow XR from 06/19/2024 showing small focus of air projecting dorsal to the proximal ulna
#Valvular heart disease with moderate mitral stenosis + moderate aortic stenosis (via TTE from 06/19/2024)
#Subclinical hypothyroidism
#Plavix related headache
Plan:
- Patient in the ER found to be in polymorphic VT suspicious for torsades de point days and started on amiodarone which resulted in significant bradycardia with heart rate in the
- Follow-up EP consult as he may need a pacemaker --> he will need a ICD with a left heart cath prior to implantation
- Keep NPO past midnight in case he gets a left heart cath tomorrow, pending sCr
- Continue heparin gtt and continue trending troponin until it peaks
- Serial H/H and transfuse if needed to keep Hb>8, and plt>50k (given he is on heparin gtt)
- Keep Zoll pads on the patient in case he needs to be TCP
- Of note, patient is on amiodarone at home TIW --> now on PO amio 400mg BID
- Echo today shows moderate mitral stenosis, moderate aortic stenosis with peak/mean gradients of 41/22, respectively, with BRANDI of 1 cm�. Also mild TR and mildly elevated PASP of 37 mmHg
- Not currently bleeding --> continue to trend CBC and transfuse if needed to keep Hb>8g/dL; keep plt>50k
- Resume ASA, hold plavix for now
- He has had multiple falls recently
- Continue fall precautions
- Will need PT/OT
- Elbow XR from 06/19/2024 shows small focus of air projecting dorsal to the proximal ulna, suggesting a small amount of air within the soft tissues. He has pain and swelling in that area. Although air forming infection is a differential he is
nontoxic-appearing and white count is now mildly elevated. Continue to monitor WBC and monitor for fever, and if elbow pain worsens then would check CT scan with consult to ID
- Pain control - would apply ice to right elbow
- Trend sCr and renally dose all meds; trend UOP; strict I/O
- Trend sHCO3 level
- Maintain SpO2 >90-94%
- Maintain MAP>65
- Replete electrolytes with K>4, Mg>2
- Maintain euglycemia with goal BG 140-180
- prn nebulized bronchodilators - not currently bronchospastic
- Incentive spirometer encouraged 10x per hour for at least 4 hrs a day
- DVT ppx: heparin gtt
Patient is critically ill and requires continuous monitoring with Zoll pads on chest in case he needs to be paced versus shocked. Continue ICU level of care
Critical care statement: A total of 37 minutes of critical care time was provided for this patient today. This includes management of unstable vital signs, evaluation of the patient at bedside, reviewing the patient's pertinent medical records
including radiographs, microbiology, laboratory evaluations, and discussion with primary team, consultants, pharmacy, nutrition, physical therapy, case management, charge nurse, critical care nursing, and respiratory therapy.
Data:
Right elbow XR 06/19/2024: No evidence for rupture or dislocation on these 2 views.
On the lateral view, small focus of air projecting dorsal to the proximal ulna, suggesting a small amount of air within the soft tissues. Please correlate with any recent intervention in this region that might introduce air. Air forming infection
would be a differential consideration.
Degenerative changes of the right elbow. Focus of calcification lateral to the lateral humeral condyle and epicondyle, which is likely calcific tendinosis.
[2024-06-19] MEDS: PROTONIX IV 40 MG IV ×2 (08:46→21:14)
[2024-06-19] MEDS: LOW STRENGTH ASPIRIN 81 MG PO (08:46)
[2024-06-19] MEDS: NSS (PRESERVATIVE FREE) 10 ML IV ×2 (08:47→21:13)
--- NOTE | 2024-06-19 09:08 | W.CON.NEPH ---
Consultation
-
Date/Time Consultation Requested: 06/19/2024 9 AM
Date/Time Consultation Performed: 06/19/2024 9 AM
Requesting Provider: Dr. Warner
Performing Provider: Dr. Díaz
Reason for Consultation: YARA
Medical History
-
Chief Complaint: Syncope
History of Present Illness:
This is an 88-year-old gentleman who has atrial fibrillation on oral anticoagulation with Xarelto, and hyperlipidemia on statin therapy as well as atherosclerotic cardiovascular disease on antiplatelet agents. Over the past week he has had
worsening shortness of breath with no other symptoms other than a headache. In that timeframe he has had 3 falls for which she has injured his right elbow. Prior to admission he had worsening shortness of breath and then a syncopal episode for
which she was brought to the emergency room. He was found to be in A-fib with a Jmail C and placed on IV amiodarone. He had a few witnessed episodes of loss conscious in the ER. His creatinine was noted to be 2.4 up from his baseline of 1 a few
months ago. It also appears that his creatinine has been rising slowly over the last several months.
Past Medical History
ASCVD
Paroxysmal Atrial Fibrillation
Hyperlipidemia
Paraesophageal Hernia / Gastric Volvulus
Gastric Ulcer
BPH
Depression
CABG
Bilateral TKA
RUE Bone Stimulator
Paraesophageal Hernia Repair / Gastropexy
Cholecystectomy
Social History
Tobacco: Former Smoker
Alcohol: None
Family History
Family History: Not Pertinent
Allergies / Home Medications
Allergy/AdvReac Type Severity Reaction Status Date / Time
No Known Allergies Allergy Verified 06/18/24 23:42
�Medication �Instructions �Recorded �Confirmed �Type
finasteride 5 mg tablet 5 mg PO HS Urinary issue 03/05/20 06/18/24 History
cyanocobalamin (vitamin B-12) 1,000 mcg PO DAILY Supplement 01/25/21 06/18/24 History
1,000 mcg tablet
amiodarone 200 mg tablet (Pacerone) 200 mg PO MOWEFR Arrhythmia 11/02/21 06/18/24 History
atorvastatin 40 mg tablet 40 mg PO HS High Cholesterol 12/19/22 06/18/24 History
cetirizine 10 mg tablet (Zyrtec) 10 mg PO HS Allergies 12/31/23 06/18/24 History
magnesium oxide 500 mg PO DAILY Supplement 12/31/23 06/18/24 History
zinc sulfate 50 mg zinc (220 mg) 50 mg PO DAILY Supplement 12/31/23 06/18/24 History
tablet
pantoprazole 40 mg tablet,delayed 40 mg PO DAILY Gastrointestinal 02/28/24 06/18/24 History
release Issue
Probiotic 100 mg PO DAILY 06/18/24 06/18/24 History
ascorbic acid (vitamin C) 1,000 mg 1,000 mg PO DAILY 06/18/24 06/19/24 History
tablet
clopidogrel 75 mg tablet 75 mg PO DAILY 06/18/24 06/18/24 History
duloxetine 30 mg capsule,delayed 30 mg PO DAILY 06/18/24 06/18/24 History
release
furosemide 40 mg tablet 40 mg PO Q48H 06/18/24 06/18/24 History
rivaroxaban 15 mg tablet 15 mg PO DAILY 06/18/24 06/18/24 History
spironolactone 25 mg tablet 25 mg PO MOWEFR 06/18/24 06/18/24 History
Review of Systems
-
No chest pain or shortness of breath. No lightheadedness. He feels vastly improved from the time of admission.
All other systems: Negative unless noted
Physical Exam
Vital Signs
Vital Signs
Temp Pulse Resp BP Pulse Ox
98.4 F 60 22 117/59 95
06/19/24 05:44 06/19/24 08:50 06/19/24 08:50 06/19/24 08:50 06/19/24 08:50
Lab Results
Sodium 135 mmol/L (135-145) 06/19/24 02:56
Potassium 4.7 mmol/L (3.5-5.1) 06/19/24 02:56
Chloride 103 mmol/L (98-107) 06/19/24 02:56
Carbon Dioxide 21 mmol/L (22-30) L 06/19/24 02:56
BUN 48 mg/dl (9-20) H 06/19/24 02:56
Creatinine 2.3 mg/dL (0.7-1.3) H 06/19/24 02:56
eGFR 26.81 06/19/24 02:56
Glucose 176 mg/dl (70-99) H 06/19/24 02:56
Calcium 8.6 mg/dl (8.4-10.2) 06/19/24 02:56
Gya-K-Jpqlsshpben Pept 4970 pg/ml 06/18/24 22:50
Albumin 4.9 g/dl (3.5-5.0) 06/18/24 22:50
Laboratory Tests
12/23/22 01/03/24 03/12/24
07:41 07:35 06:31
Hgb 8.8 L
Creatinine 1.1 1.4 H 1.8 H
Prior urinalyses reviewed in 2023, in December and February they were otherwise bland
Physical Exam
Patient is awake alert oriented and in no distress. Mood and affect were pleasant, insight and judgment were good. Pupils are equal round and reactive to light, extraocular movements are intact, sclera were anicteric. Hearing was normal, ears and
nose are intact. Oropharynx was clear. Neck was supple with trachea midline and no thyromegaly. Heart was regular rate and rhythm without rubs. Lower extremities without edema. Lungs were clear to auscultation bilaterally and with normal
excursion. Abdomen was soft, nontender, with normal active bowel sounds, and no hepatosplenomegaly. Skin was without rash and with normal turgor. Condom catheter in place.
Data Reviewed
-
Radiology: Image Personally Visualized and interpreted (Chest x-ray 06/19/2024 by my reading shows small pleural effusion)
Ultrasound: Report Reviewed by me (Renal ultrasound January 01, 2024 right kidney 8.5 cm, left kidney 10 cm no hydronephrosis)
Medical Tests (Nuc Med, Echo etc): Image Personally Visualized and interpreted (EKG 06/19/2024 by my reading shows atrial flutter right bundle branch block left anterior fascicular block septal Q, inferior lateral T wave abnormality)
Labs: Labs Reviewed by me
Old Records: Reviewed
Assessment/Plan
-
Assessment
Bradycardia
Atrial flutter
ASCVD
YARA
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
Acute anemia
Plan
Blood pressure is stable
No additional IV fluids required
He does not appear to be volume overloaded
Check urine studies
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
Recent urinalyses as well as rising creatinine would suggest some sort of tubulointerstitial or ischemic process
Could consider holding PPI but he will likely require this given use of Plavix and/or OAT
[2024-06-19 09:46] LABS: Lactic Acid 1.4 mmol/L (0.7-2.0)
[2024-06-19 09:52] LABS: Hematocrit 22.2 % (39.0-52.0); Mean Corp Hgb Conc. 31.5 g/dL (33.0-37.0); Mean Corpuscular Hgb 25.8 pg (27.0-31.0); Mean Corpuscular Volume 81.9 fL (80.0-94.0); Mean Platelet Volume 9.5 fL (7.4-10.4); Platelet Count 324 10^3/uL (130-400); Red Blood Cell Count 2.71 10^6/uL (4.70-6.10); Red Cell Dist. Width 16.8 % (11.5-14.5)
--- NOTE | 2024-06-19 09:54 | W.PN.UPDATE ---
Update Note
Progress Note Update
Nonbillable note
H&P submitted 130 AM
Patient admitted with VT, syncope - placed on Amio drip
Also received 1 unit PRBC
on IV Heparin
Currently Lasix and IVF on hold
Assessment:
VTach with syncope
Underlying history of permanent A. Flutter per Cardiology
- life-threatening diagnosis
- s/p Amio Load, became bradycardic on IV Amiodarone; now on oral Amiodarone
- monitor tele
- monitor electrolytes
- Echo: pending
- EP/CBC cards following
non-ischemic myocardial injury in setting of YARA, anemia, arrhythmia
Hx of CAD with hx of CABG
- trop .115; trend to peak
- continue ASA
- continue IV heparin - requires intensive monitoring of PTTs. May need to hold if Hb low.
- chronic Xarelto held
Acute on Chronic Normocytic Anemia
GERD/PUD
- Had gastric ulcer on EGD last admission (12/2023)
- s/p 1 unit PRBC. repeat Hb 7.0 this morning.
- heme test stools - last BM reported normal brown appearance
Chronic HFmEF (per Cardiology)
- Complains of SOB - but seems likely reflection of arrhythmia and not volume overload.
- Lasix held with YARA
- Follow I/Os, daily weights, etc.
- Update Echo as noted above.
YARA on CKD III
Anion Gap Metabolic Acidosis
- SCr = 2.4 compared to prior baseline of 1.5.
- AG on admission = 18.
- Likely due to decreased perfusion / arrhythmia.
- mild lactic acidosis resolved
- follow BMP
- follow urine studies
- Nephrology following
Headache
- Patient had similar posterior headache on prior admission - ultimately due to worsened anemia.
- Treat anemia / transfusion as noted above.
- Change Plavix back to ASA as symptoms seemed to begin with this change.
- Patient is awake and alert (between arrhythmia episodes) and has no focal findings on exam.
Right Elbow Pain
- Patient with bone stimulator in place R elbow (old).
- Also with tenderness / edema over the medial aspect of the elbow.
- Check x-ray for evidence of acute fracture / trauma due to recent fall(s).
BPH
- Stable. Bladder scan protocol.
DVT Prophylaxis: On IV Heparin
Code Status: Full
Total Critical Care Time 37 minutes. I was immediately available to the patient and staff. I personally examined, reviewed labs, diagnostic images/reports, interpretations, treatment plans, discussed patient care with other providers and family
or caregivers (if patient is unable to make decisions), entered orders as appropriate and documented the medical record.
[2024-06-19 10:01] LABS: Troponin I 0.135 ng/ml
[2024-06-19 10:07] LABS: APTT 106.2 Sec (23.4-35.0)
--- NOTE | 2024-06-19 11:44 | CM ---
CM following re: discharge planning.
Reviewed pt's chart, met with pt.
Pt is an 88 year old male, admitted with primary dx of VTach with syncope.
Pt reports he lives with daughter Cindy 2SH, 1 step to enter, has 5 supportive children. Pt reports he ambulates wit a walker at baseline, known to VN, family help as needed. NO SNF history. Pt expressed his desire to return back home upon the
discharge with VN.
PT and OT will evaluate the pt to determine a level of acre at discharge.
PCP: Da [facility]itt
Pharmacy: [facility]
D/C plan: most likely home with VN and family support. PT and OT to confirm next level of care.
CM will follow with discharge plan updates as hospitalization progresses
[2024-06-19 12:18] LABS: Urine Albumin Negative (Neg - Trace); Urine Bilirubin Negative (Negative); Urine Character Clear (Clear); Urine Color Yellow; Urine Glucose Negative (Negative); Urine Ketone Negative (Negative); Urine Leukocyte Negative (Negative); Urine Nitrite Negative (Negative); Urine Occult Blood Negative (Negative); Urine Specific Gravity 1.015 (<1.030); Urine Urobilinogen Negative (Neg - 1+)
[2024-06-19 13:05] LABS: Body Fluid for Eosinophils No Eosinophils seen
[2024-06-19 13:22] LABS: Urine Sodium 25 mmol/L (30-90)
[2024-06-19] MEDS: PACERONE 400 MG PO ×2 (14:56→21:13)
--- NOTE | 2024-06-19 17:07 | W.PN.UPDATE ---
Update Note
Progress Note Update
Reviewed strips with EP. Recommendation is for cardiac cath prior to ICD. We will arrange for cath once Cr stable. We will check Cr in AM, and decide on cath Sunday vs Sunday after more optimization.
Patient can eat dinner, but will be NPO for AM.
Continue PO amiodarone.
Plan discussed with patient, and care team.
--- NOTE | 2024-06-19 17:10 | PTCARENOTE ---
Cardiology in earlier. Labs sent and currently Amiodarone gtt hung via L lower forearm IV site at 1 mg/min + excellent blood return from IV site. Isolated PVC but no further runs of VT. Pt resting. Resp therapy in around 16:15 and changed pt over to
6L nc with sats of 95%. BS are decreased and sl coarse. Pt coughing a moist cough. Was productive for whitish/paulson secretions x1 but otherwise not. Pt encouraged to use the [place]. Remains overall oriented. Denies pain but states he is just tired
and wants to rest. Given gingerale and tolerated well. No difficulty noted with swallowing. Cevallos dc'd (discussed with hospitalist earlier-would dc once pt extubated). #25 condom cath placed on pt. Pt did have a small amt of bloody drainage from
meatus when cevallos removed. Turned and repositioned. Heparin gtt continues at 1000 units/hr. No other chagnes in assessment. Call riley in reach.
[2024-06-19 17:15] LABS: Hematocrit 20.7 % (39.0-52.0); Hemoglobin 6.5 g/dL (13.0-18.0); Mean Corp Hgb Conc. 31.4 g/dL (33.0-37.0); Mean Corpuscular Hgb 25.7 pg (27.0-31.0); Mean Corpuscular Volume 81.8 fL (80.0-94.0); Mean Platelet Volume 9.3 fL (7.4-10.4); Platelet Count 306 10^3/uL (130-400); Red Blood Cell Count 2.53 10^6/uL (4.70-6.10); Red Cell Dist. Width 16.7 % (11.5-14.5)
[2024-06-19 17:32] LABS: Troponin I 0.107 ng/ml
--- NOTE | 2024-06-19 17:47 | PTCARENOTE ---
Him, his daughter Evangelina and Amisha were informed of the plan of care for blood transfusion and possible cardiac catheterization tomorrow dependent on his AM lab results. They verbalized their understanding.
[2024-06-19 18:13] LABS: Glucose - Point of Care 139 mg/dl (70-99)
--- NOTE | 2024-06-19 18:50 | PTCARENOTE ---
PRBC infusing without difficulty. Daughter asking if Head Ct will be obtained given headaches prior to admission. She is aware that there were orders for a head CT then cancelled.
[2024-06-19] MEDS: PACERONE PO (19:37)
--- NOTE | 2024-06-19 20:00 | PTCARENOTE ---
rec`d pt at 1900 AAOx3. pleasant. assessment as documented. blood transfusion and heparin gtt continued. RA. uses urinal. pt completed his dinner. safe environment maintained. call riley in reach. family at bedside.
[2024-06-20] VITALS (17 sets, daily range): BP systolic 128–177; BP diastolic 52–69; BMI 22.1
[2024-06-20 00:09] LABS: Glucose - Point of Care 122 mg/dl (70-99)
[2024-06-20 00:59] LABS: APTT 69.4 Sec (23.4-35.0)
[2024-06-20 03:25] LABS: Hematocrit 24.5 % (39.0-52.0); Hemoglobin 7.8 g/dL (13.0-18.0); Mean Corp Hgb Conc. 31.8 g/dL (33.0-37.0); Mean Corpuscular Hgb 26.2 pg (27.0-31.0); Mean Corpuscular Volume 82.2 fL (80.0-94.0); Mean Platelet Volume 9.7 fL (7.4-10.4); Platelet Count 315 10^3/uL (130-400); Red Blood Cell Count 2.98 10^6/uL (4.70-6.10); Red Cell Dist. Width 16.3 % (11.5-14.5); White Blood Cell Count 12.6 10^3/uL (4.8-10.8)
[2024-06-20 03:36] LABS: INR 1.78; PT 21.2 Sec (11.4-14.6)
[2024-06-20 03:38] LABS: APTT 75.8 Sec (23.4-35.0)
[2024-06-20 03:54] LABS: Blood Urea Nitrogen 37 mg/dl (9-20); Calcium 8.9 mg/dl (8.4-10.2); Carbon Dioxide 24 mmol/L (22-30); Chloride 105 mmol/L (98-107); Estimated Creatinine Clearance 28 ml/min; Glucose 118 mg/dl (70-99); Magnesium 2.4 mg/dl (1.6-2.3); Phosphorus 2.9 mg/dl (2.5-4.5); Potassium 4.4 mmol/L (3.5-5.1); Sodium 138 mmol/L (135-145); eGFR 35.98
--- NOTE | 2024-06-20 04:00 | PTCARENOTE ---
pt reassessed. no changes in pt assessment. call riley in reach.
[2024-06-20 04:09] LABS: Troponin I 0.092 ng/ml
[2024-06-20 06:38] LABS: Glucose - Point of Care 127 mg/dl (70-99)
--- NOTE | 2024-06-20 07:33 | W.PN.INTV ---
Today's Communication / Plan
Recommendations
Infectious disease starting antibiotics today and recommends removing hardware from right upper extremity prior to ICD implantation - This will be deferred to orthopedic surgery
Pain control
Continue with PO amiodarone
Given he required 2 units PRBC transfusion yesterday, heparin drip now off
Continue with heparin SQ for now
Continue to monitor H&H and transfuse to keep Hb >8 g/dL
Plan is for left heart catheterization this upcoming Sunday with ICD on Sunday, however first need to figure out his source of infection prior to ICD is implanted
Encourage incentive spirometer
Maintain SpO2 >90-94%
Keep MAP >65
Patient has markedly improved and is stable for downgrade out of ICU to telemetry. No additional recommendations at this time. Denture Waxer/Pulmonary service will now sign off. Please reconsult if there are any additional questions/concerns, or if
patient's respiratory status deteriorates.
Assessment
-
Assessment: 88-year-old male former tobacco smoker with a past medical history of A-fib on Xarelto, history of MO, CAD s/p CABG, history of colonic polyps, anemia and history of diverticulitis who presents with worsening SOB and lightheadedness.
He says that he passed out while at registration here in the ER. He had a fall last week and fell onto his right elbow which has been bruised. He has not had a fever, cough or chest pain. Also has had a headache for the last 2 to 3 weeks which
occurred after change from aspirin to Plavix. He has had 3 falls in the last 2 weeks. 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 He was more short of breath at home prior to arrival and his oxygen
saturation was low with variable BP. He had an episode where his eyes rolled to the back of his head and he started shaking and then he was brought here to the ER for further evaluation. In the ER, he was afebrile to 98.6 �F, pulse rate 104,
breathing at 26 breaths/min, BP 115/45 and saturating 100% on room air. He was found to be in an arrhythmia thought to be either VT, torsades or A-fib with aberrancy. He received 1L NS 0.9% + 150 mg IV amiodarone and started on infusion which then
caused bradycardia. Amiodarone then stopped. Initial labs showed Hb 7.4, WBC 14.3, platelet count 428, creatinine 2.4, initial troponin 0.095, proBNP 4970, and TSH 5.33 with free T41.34. Initial CXR showed a small left-sided pleural effusion with
a left lower lobe patchy opacity, likely atelectasis. He was then transferred to the ICU for further care with intensive services consulted for additional management/recommendations.
Chronic conditions MANAGER OPERATIONS: Heart bypass, A-fib on Xarelto, hypertension, colon polyps, history of CVA, history of MO, history of diverticulitis, anemia
Impression:
#Syncope likely due to arrhythmia
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
#YARA on CKD - improving (baseline sCr: 1.2-1.4)
#Acute on chronic anemia (baseline Hb 8�9.5g/dL)
#Metabolic acidosis with preserved anion gap - acidosis now resolved
#Lactic acidosis � now resolved
#Elevated troponin likely due to demand ischemia with type II MO vs NSTEMI � peaked at 0.135 on 06/19/2024
#Elevated proBNP of 4970 (was 2310 on 02/28/2024)
#Multiple falls with right elbow trauma with elbow XR from 06/19/2024 showing small focus of air projecting dorsal to the proximal ulna likely due to traumatic wound with infection
#History of right mid ulnar diaphyseal fracture s/p ORIF with compression plate + screws & stimulator device with wires & soft tissue on the right forearm adjacent to treated fracture (implanted in 's)
#Valvular heart disease with moderate mitral stenosis + moderate aortic stenosis (via TTE from 06/19/2024)
#Subclinical hypothyroidism
#Plavix related headache
Plan:
- Patient in the ER found to be in polymorphic VT suspicious for torsades de pointes and started on amiodarone which resulted in significant bradycardia with heart rate in the
- Cariology/EP on board --> plan for LHC Sunday and then ICD Sunday
- IV heparin gtt stopped given acute anemia requiring blood transfusions --> last transfusion 06/19/2024; troponin peaked at 0.135 on 06/19/2024�no longer need to continue trending at this time
- Serial H/H and transfuse if needed to keep Hb>8, and plt>50k
- Keep Zoll pads on the patient in case he needs to be TCP
- Of note, patient is on amiodarone at home TIW --> now on PO amio 400mg BID
- Echo from yesterday showed moderate mitral stenosis, moderate aortic stenosis with peak/mean gradients of 41/22, respectively, with BRANDI of 1 cm�. Also mild TR and mildly elevated PASP of 37 mmHg
- Not currently bleeding --> continue to trend CBC and transfuse if needed to keep Hb>8g/dL; keep plt>50k
- Continue ASA, hold plavix for now
- He has had multiple falls recently
- Continue fall precautions
- PT/OT
- Elbow XR from 06/19/2024 shows small focus of air projecting dorsal to the proximal ulna, suggesting a small amount of air within the soft tissues. He has pain and swelling in that area. Although air forming infection is a differential he is
nontoxic-appearing and white count is now mildly elevated. Continue to monitor WBC and monitor for fever
- ID now consulted and so is orthopedic surgery
- CT right upper extremity performed today showing severe extensive subcutaneous edema throughout the posterior aspect of the right upper arm, elbow and forearm with severe OA of the right elbow and a chronic avulsion fracture of the lateral
epicondyle measuring 1.3 cm
- Antibiotics started today with cefazolin
- It is suspected that the infection tracks subcutaneously down to the stimulator device/wires which was placed in the 1970s; this should ideally be removed prior to ICD placement to prevent possible seeding --> this will be an ongoing discussion
between ID + orthopedic surgery
- Pain control - would apply ice to right elbow
- Check RUE US to eval for DVT ---> negative
- Trend sCr and renally dose all meds; trend UOP; strict I/O
- Trend sHCO3 level
- Maintain SpO2 >90-94%
- Maintain MAP>65
- Replete electrolytes with K>4, Mg>2
- Maintain euglycemia with goal BG 140-180
- prn nebulized bronchodilators - not currently bronchospastic
- Incentive spirometer encouraged 10x per hour for at least 4 hrs a day
- DVT ppx: HSQ
Patient has markedly improved and is stable for downgrade out of ICU to telemetry. No additional recommendations at this time. Denture Waxer/Pulmonary service will now sign off. Thank you for allowing us to be involved in the care of this patient.
Please reconsult if there are any additional questions/concerns, or if patient's respiratory status deteriorates.
Data:
Right elbow XR 06/19/2024: No evidence for rupture or dislocation on these 2 views.
On the lateral view, small focus of air projecting dorsal to the proximal ulna, suggesting a small amount of air within the soft tissues. Please correlate with any recent intervention in this region that might introduce air. Air forming infection
would be a differential consideration.
Degenerative changes of the right elbow. Focus of calcification lateral to the lateral humeral condyle and epicondyle, which is likely calcific tendinosis.
CT right upper extremity without contrast 06/20/2024:
1. Severe extensive subcutaneous edema throughout the posterior aspect of the right upper arm, elbow, and forearm. Diagnostic possibilities are (1) acute infectious cellulitis, (2) venous stasis, or (3) lymphedema.
2. 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
3. 1.3 cm chronic avulsion fracture of the lateral epicondyle.
4. Previous ORIF of a right mid ulnar diaphyseal fracture with a compression plate and screws in place. Stimulator device and wires in the soft tissues of the right forearm adjacent to the treated fracture.
Total time spent today was 57 minutes for this encounter. Time includes reviewing laboratory test/imaging results, reviewing pertinent medical records, obtaining and reviewing medical history, performing an appropriate exam, ordering medications,
tests and procedures. Time also includes documentation of this encounter, coordinating patient care and communicating with other healthcare professionals. Total time does not include separately billed tests performed on this date of service.
Subjective Dataa
Subjective Data
Date of Service:
Date of Service: June 20, 2024
Chief Complaint: Denture Waxer Follow Up
Subjective:
Patient seen and evaluated this morning. No bleeding seen this AM. Last transfusion yesterday with 2 units PRBC. No VT episodes since being here in ICU. Removed from heparin gtt now. Still has some swelling and pain on right elbow. Current
heart rate 60, BP 143/68 and saturating 96% on room air. He denies abdominal pain, nausea, vomiting, fevers or chills, chest pain, shortness of breath.
Review of Systems
General: Other (Negative unless mentioned above)
Objective Data
Data Reviewed
Vital Signs / I&O / Oxygen:
Vital Signs
Temp Pulse Resp BP Pulse Ox
99.5 F 41 24 128/60 95
06/19/24 23:32 06/20/24 05:00 06/20/24 05:00 06/20/24 04:00 06/20/24 05:00
Intake and Output
06/19/24 06/20/24 06/21/24
06:59 06:59 06:59
Intake Total 650.5 / 784.0 775.5 / 775.5
Output Total 100 / 100 1450 / 1450
Balance 550.5 / 684.0 -674.5 / -674.5
SaO2 95
Physical Exam
General: Respiratory Distress (negative), Comfortable, Chills (negative) and Sweats (negative)
HEENT: Normocephalic and Anicteric
Cardiovascular: S1-S2, Murmur (CAT, grade III/ heard across precordium) and Peripheral Edema (+1 lower extremity edema bilaterally)
Respiratory: Wheeze (negative), Crackles (Faintly heard in the bases bilaterally), Rhonchi (negative) and Non-Labored Respirations
GI: Soft, Non Distended, Non Tender and Normal Bowel Sounds
Neurology: AO x 3 and Tremors (negative)
Skin: Warm, Dry, Cyanosis (negative), Jaundice (negative) and Other (Edema + erythema and swelling seen on right elbow)
Labs/Micro/Reports
Lab Data
06/20/24 03:15
06/20/24 03:15
Laboratory Results
06/19/24 06/19/24 06/20/24
09:24 16:53 00:32
PT
INR
APTT 106.2 H 147.0 H 69.4 H
06/20/24
03:15
PT 21.2 H
INR 1.78
APTT 75.8 H
[2024-06-20] MEDS: PACERONE 400 MG PO (07:42)
[2024-06-20] MEDS: NSS (PRESERVATIVE FREE) 10 ML IV ×2 (07:42→22:00)
[2024-06-20] MEDS: CYMBALTA DELAYED RELEASE 30 MG PO (07:43)
[2024-06-20] MEDS: PROTONIX IV 40 MG IV ×2 (07:43→22:00)
[2024-06-20] MEDS: LOW STRENGTH ASPIRIN 81 MG PO (07:43)
[2024-06-20 08:47] LABS: APTT 54.2 Sec (23.4-35.0)
--- NOTE | 2024-06-20 08:57 | W.PN.NEPH.PH ---
Today's Communication / Plan
-
Creatinine improving towards baseline
Holding Lasix
Assessment/Plan
-
Assessment
Bradycardia
Atrial flutter
ASCVD
YARA
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
Acute anemia
Plan
Blood pressure is stable
Creatinine improved to 1.8, grossly non oliguric
No additional IV fluids required and holding lasix
He does not appear to be volume overloaded
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
Recent urinalyses as well as rising creatinine would suggest some sort of tubulointerstitial or ischemic process
-
-
Date of Service: June 20, 2024
CC / HPI / ROS
-
Chief Complaint:
Acute kidney injury
History of Present Illness:
Creatinine improving to 1.8
Hemodynamically stable
Remains on amiodarone for atrial fibrillation
Review of Systems:
Grossly nonoliguric
No chest pain or shortness of breath
Labs
-
Labs:
06/20/24 03:15
06/20/24 03:15
WBC 12.6 10^3/uL (4.8-10.8) H 06/20/24 03:15
RBC 2.98 10^6/uL (4.70-6.10) L 06/20/24 03:15
Hgb 7.8 g/dL (13.0-18.0) L 06/20/24 03:15
Hct 24.5 % (39.0-52.0) L 06/20/24 03:15
Plt Count 315 10^3/uL (130-400) 06/20/24 03:15
Sodium 138 mmol/L (135-145) 06/20/24 03:15
Potassium 4.4 mmol/L (3.5-5.1) 06/20/24 03:15
Chloride 105 mmol/L (98-107) 06/20/24 03:15
Carbon Dioxide 24 mmol/L (22-30) 06/20/24 03:15
BUN 37 mg/dl (9-20) H 06/20/24 03:15
Creatinine 1.8 mg/dL (0.7-1.3) H 06/20/24 03:15
eGFR 35.98 06/20/24 03:15
Glucose 118 mg/dl (70-99) H 06/20/24 03:15
Calcium 8.9 mg/dl (8.4-10.2) 06/20/24 03:15
Phosphorus 2.9 mg/dl (2.5-4.5) 06/20/24 03:15
Ndq-R-Grjnxtkwzcf Pept 4970 pg/ml 06/18/24 22:50
Albumin 4.9 g/dl (3.5-5.0) 06/18/24 22:50
Physical Exam
-
Vital Signs:
Vital Signs
Temp Pulse Resp BP Pulse Ox
99.5 F 60 24 153/53 95
06/19/24 23:32 06/20/24 07:42 06/20/24 05:00 06/20/24 07:42 06/20/24 05:00
Cardiovascular:: Regular rate and rhythm
Respiratory:: Bilateral: CTA
Lung Excursion:: Normal
Abdomen:: Nontender and Soft
Extremity Edema:: None: Bilateral:
Collins Catheter: No
--- NOTE | 2024-06-20 09:53 | W.PN.CD ---
Today's Communication / Plan
-
Plan for LHC Sunday once creatinine has returned to baseline
Hold Lasix for YARA
Stop heparin given ongoing anemia requiring transfusions
Continue p.o. amiodarone load
Tentative ICD on Sunday
Impression / Plan
-
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
Polymorphic VT, syncope:
-this diagnosis is threat to life
-was on IV amiodarone, but became bradycardic. Continue PO amio load and monitor telemetry
-will need ICD, and patient agreeable, but will need LHC prior to assess for revascularization
-LHC Sunday when creatinine is back to baseline
-Tentative ICD Sunday pending results of LHC
CAD with hx CABG and stenting:
-recent cath as below
-on ASA here- continue. Plavix held.
-no CP
Abnormal troponin:
-denies CP. Peaked at 0.135 and now downtrending.
-likely non-ischemic myocardial injury in setting of YARA, anemia, arrhythmia but cannot rule out ongoing ischemia given polymorphic VT as above
-Echo with no new wall motion abnormalities
-Stop heparin. He has ongoing anemia requiring 2U pRBCs thus far
Anemia, przqj-cr-jjuibyd:
-denies clinical bleeding
-s/p 2 unit PRBC
-stop heparin
-Workup per primary team
Atrial flutter, permanent:
-on Xarelto as OP, held for bleeding and upcoming procedures
-monitor rates with amio
HF recovered EF: chronic
-TTE 06/19/2024: LVEF 55-60%, moderate MS (17/7 mmHg), moderate (41/22 mmHg, BRANDI 1.0 cm�), mild TR, PASP 37 mmHg
-does not appear overloaded to assessment
-hold Lasix for YARA
YARA on CKD:
-nephro on the case
DATA:
Cardiac cath 03/16/24: Right dominant circulation with chronic total occlusion of the distal RCA, chronic total occlusion of the left circumflex, 60-70% tapering of the distal left main, a 90% proximal LAD lesion and chronic total occlusion of the
mid LAD status post prior bypass (patent FORD to LAD, patent sequential SVG to RPDA to OM) with patent stent in the proximal SVG. Severely elevated filling pressures (LVEDP = 25 mmHg, PCWP = 26 mmHg at 71.7 kg). Mild reduction in systolic function,
LVEF estimated at 45% with mild global hypokinesis. Mild aortic valve stenosis (mean gradient = 13.29 mmHg, estimated valve area = 1.8 cm�). 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
output = 5.01 L/min, PVR = 4.59 Singh units), likely WHO group 2 and group 5. Significant arterial hypertension while in the Director Index. In consultation with his daughter, it is revealed that this is likely due to anxiety as the patient's blood
pressures are typically 110/60 at home.
Subjective: Patient has no cardiovascular complaints this morning. Telemetry shows no recurrent polymorphic VT. Labs notable for hemoglobin 7.8 from 6.5 after 1 unit PRBCs last PM (second unit this admission). Creatinine 1.8 from 2.3 (baseline
1.5).
Physical Exam
Vital Signs/Labs
Vital Signs
Temp Pulse Resp BP Pulse Ox
99.5 F 60 24 153/53 95
06/19/24 23:32 06/20/24 07:42 06/20/24 05:00 06/20/24 07:42 06/20/24 05:00
06/19/24 06/20/24 06/21/24
06:59 06:59 06:59
Actual Weight 69.3 kg 70 kg
06/20/24 03:15
02/28/25 03:15
PT 21.2 Sec (11.4-14.6) H 06/20/24 03:15
INR 1.78 06/20/24 03:15
APTT 54.2 Sec (23.4-35.0) H 06/20/24 07:48
Magnesium 2.4 mg/dl (1.6-2.3) H 06/20/24 03:15
Free T4 1.34 ng/dl (0.78-2.19) 06/19/24 02:56
06/18/24
22:50
Fvt-O-Dkaflgkfgke Pept 4970
LAB Results
06/18/24 06/19/24 06/19/24
22:50 02:56 09:24
Troponin I 0.095 H* 0.115 H* 0.135 H*
06/19/24 06/19/24 06/19/24
14:09 16:53 22:00
Troponin I Cancelled 0.107 H* Cancelled
06/20/24
03:15
Troponin I 0.092 H*
Physical Exam
Constitutional: No acute distress and Comfortable
Cardiovascular: Rhythm/rate is irregular, Pedal edema present (1+ LLE edema), Systolic murmur present and S1S2 is normal
Respiratory: Respiratory effort normal and Lungs clear to auscul.
Neuro/Psych: AO x 3
Data Reviewed
-
Date of Service: June 20, 2024
Medical Decision Making: Reviewed Test Results, Independent Historian Assessment, Test Interpretation and Review of Case with other Provider
EKG: Tracing Personally Visualized and interpreted
Echo: Report Reviewed by me
Labs: Labs Reviewed by me
--- NOTE | 2024-06-20 11:21 | W.PN.HOSP.TC ---
Today's Communication/Plan
-
CT elbow/RUE
Ortho consult
ID consult
SC Heparin (IV Heparin off)
continue Amio
tele transfer
monitor HB
Assessment / Plan
Assessment / Plan
Assessment:
VTach with syncope
Underlying history of permanent A. Flutter per Cardiology
- life-threatening diagnosis
- s/p Amio Load, became bradycardic on IV Amiodarone; now on oral Amiodarone
- monitor tele
- monitor electrolytes
- Echo: 06/19/2024: LVEF 55-60%, moderate MS (17/7 mmHg), moderate (41/22 mmHg, BARNDI 1.0 cm�), mild TR, PASP 37 mmHg
- EP/CBC cards following
- for [facility] Sunday and eventual ICD
non-ischemic myocardial injury in setting of YARA, anemia, arrhythmia
Hx of CAD with hx of CABG
- trop .135 peak
- continue ASA
- IV heparin stopped; Xarelto remains held
Acute on Chronic Normocytic Anemia
GERD/PUD
- Had gastric ulcer on EGD last admission (12/2023)
- s/p 2 unit PRBCs. Hb 7.8 most recently
- heme test stools - last BM reported normal brown appearance
Chronic HFmEF (per Cardiology)
- Complains of SOB - but seems likely reflection of arrhythmia and not volume overload.
- Lasix held with YARA
- Follow I/Os, daily weights, etc.
- Update Echo as noted above.
YARA on CKD III
Anion Gap Metabolic Acidosis
- SCr = 2.4 compared to prior baseline of 1.5. Currently 1.8
- AG on admission = 18.
- Likely due to decreased perfusion/arrhythmia.
- mild lactic acidosis resolved
- follow BMP
- follow urine studies
- Nephrology following
Right Elbow Pain
- Patient with bone stimulator in place R elbow (old).
- Xray: On the lateral view, small focus of air projecting dorsal to the proximal ulna, suggesting a small amount of air within the soft tissues. Please correlate with any recent intervention in this region that might introduce air. Air forming
infection would be a differential consideration.
- CT ordered
- Orthopedics and ID consulted
Headache
- Patient had similar posterior headache on prior admission - ultimately due to worsened anemia.
- Treat anemia/transfusion as noted above.
- Change Plavix back to ASA as symptoms seemed to begin with this change.
- Patient is awake and alert (between arrhythmia episodes) and has no focal findings on exam.
BPH
- Stable. Bladder scan protocol.
Elevated TSH
- normal T4
- repeat TFT in 6 weeks
DVT Prophylaxis: SC Heparin
Code Status: Full
Total Critical Care Time 41 minutes. I was immediately available to the patient and staff. I personally examined, reviewed labs, diagnostic images/reports, interpretations, treatment plans, discussed patient care with other providers and family
or caregivers (if patient is unable to make decisions), entered orders as appropriate and documented the medical record.
Anticipated Discharge: > 48 hours
Subjective/Interval History
-
Date of Service: June 20, 2024
resting comfortable
reports elbow pain with flexion
Objective Data
-
Labs:
Laboratory Results
06/20/24 06/20/24 06/20/24
00:32 03:15 07:48
WBC 12.6 H
Hgb 7.8 L
Hct 24.5 L
Plt Count 315
PT 21.2 H
INR 1.78
APTT 69.4 H 75.8 H 54.2 H
Sodium 138
Potassium 4.4
Chloride 105
Carbon Dioxide 24
BUN 37 H
Creatinine 1.8 H
Glucose 118 H
Calcium 8.9
06/20/24
15:00
WBC
Hgb
Hct
Plt Count
PT
INR
APTT Pending
Sodium
Potassium
Chloride
Carbon Dioxide
BUN
Creatinine
Glucose
Calcium
Vital Signs:
Vital Signs
Temp Pulse Resp BP Pulse Ox
99.5 F 60 24 153/53 97
06/19/24 23:32 06/20/24 07:42 06/20/24 05:00 06/20/24 07:42 06/20/24 09:00
I&O
06/19/24 06/20/24 06/21/24
06:59 06:59 06:59
Intake Total 650.5 / 784.0 775.5 / 783.0 30.0 / 30.0
Output Total 100 / 100 1450 / 1450
Balance 550.5 / 684.0 -674.5 / -667.0 30.0 / 30.0
Physical Exam
-
General: No Apparent Distress
HEENT: Normocephalic and Atraumatic
Respiratory: Negative Wheezes
Cardiac: Regular Rhythm and S1/S2
GI: Soft
Musculoskeletal: Other (RUE swelling near elbow, discomfort with elbow flexion)
Neuro: AO x 3
Hematologic / Lymphatic: No Lymphadenopathy
Psych: Calm
Data Reviewed
-
Critical Care Time (in minutes): 41
Labs: Labs Reviewed by me
[2024-06-20 12:28] LABS: Glucose - Point of Care 108 mg/dl (70-99)
[2024-06-20] MEDS: HEPARIN 5000 UNITS SC ×2 (12:41→21:59)
--- NOTE | 2024-06-20 15:02 | CON.ID ---
Consultation
-
Date/Time Consultation Requested: June 20, 2024 1116
Date/Time Consultation Performed: June 20, 2024 1500
Requesting Provider: Dr. Karlene Waite
Performing Provider: Dr. Leisa You
Reason for Consultation: Right elbow wound down to bone
Chief Complaint / Past History
Chief Complaint
SOB, dizziness
History of Present Illness
88-year-old male with history of atrial fibrillation, ischemic cardiomyopathy, CAD status post CABG and stent, remote history of right forearm fracture status post ORIF with bone stimulator placement in 1971 who presented to the hospital June 18
due to worsening shortness of breath. Patient has been having dizziness and shortness of breath outpatient status post fall x 2 within the past 2 weeks. Patient states he fell and hit his right elbow on the concrete bathroom floor. He sustained
small wound on his elbow. The elbow then started to become swollen red and painful. In the hospital, pus expressed from the elbow wound. CAT scan upper extremity showed severe extensive subcutaneous edema throughout the posterior right upper arm,
elbow and forearm, there is previous ORIF of right mid ulnar diaphyseal fracture with a compression plate and screws in place, stimulator device and wires in the soft tissue of the right forearm. On admission, patient noted to have several
episodes of polymorphic V. tach. Cardiac catheterization is planned for next week followed by ICD placement. Pt denies fever and chills. No further syncopal episodes.
Past History
Additional Past Medical History:
Paroxysmal atrial fibrillation
CAD status post CABG, stent
Ischemic cardiomyopathy
Moderate aortic stenosis
History of paraesophageal hernia/gastric volvulus s/prepair
Gastric ulcer
BPH
Depression
Right forearm fracture s/p ORIF with bone stimulator 1971 at [facility]
Cholecystectomy
Bilateral total knee replacement
Allergy History:
No Known Allergies Allergy (Verified 06/18/24 23:42)
Medications Reviewed: Yes
Current Antibiotics:
none
Social History
Tobacco: Former Smoker
Alcohol: None
Drug: None
Family History
Family History: Not Pertinent
Review of Systems
Review of Systems
General: Negative Fever, Chills or Change in Appetite
HEENT: Negative Sinus Problems, Headache or Pharyngitis
Cardiovascular: Negative Chest Pain or Edema
Respiratory: Dyspnea
Gasteroenterology: Negative Nausea, Vomiting or Diarrhea
Genital / Urological: Negative Dysuria or Flank Pain
Endocrine: Weakness
All systems: All other systems were reviewed and were negative
Vital Signs
Temp Pulse Resp BP Pulse Ox
98.4 F 52 21 143/68 96
06/20/24 13:34 06/20/24 13:00 06/20/24 12:00 06/20/24 12:00 06/20/24 12:00
Physical Exam
Physical Exam
Constitutional: No Acute Distress and Comfortable
Head: Other (no frontal or maxillary sinus tenderness)
Eyes: No Conjunctival Hemorrhage and Sclera Anicteric
Cardiovascular: S1/S2
Pulmonary: Clear
Gastrointestinal: Soft, Non Tender, Non Distended, Normal Bowel Sounds and Decreased Bowel Sounds
Genito-Urinary: Negative CVA Tenderness
Extremities: Other (RLE + edema, erythema elbow up the arm and down forearm. Small wound over elbow, yellow cloudy fluid expressed, no probing to bone. )
Neurological: AO x 3
Lab / Diagnostic Study Results
06/20/24 03:15
06/20/24 03:15
Abs Immat Gran (auto) 0.1 10^3/uL (0-0.05) H 06/18/24 22:50
Absolute Neuts (auto) 11.3 10^3/uL (1.4-6.5) H 06/18/24 22:50
Absolute Lymphs (auto) 1.2 10^3/uL (1.2-3.4) 06/18/24 22:50
Absolute Monos (auto) 1.6 10^3/uL (0.1-0.6) H 06/18/24 22:50
Absolute Basos (auto) 0.0 10^3/uL (0-0.2) 06/18/24 22:50
Immature Gran % 0.4 % (0-0.5) 06/18/24 22:50
Neutrophils % 79.2 % (42.2-75.2) H 06/18/24 22:50
Lymphocytes % 8.5 % (20.5-51.1) L 06/18/24 22:50
Monocytes % 11.4 % (1.7-9.3) H 06/18/24 22:50
Eosinophils % 0.2 % (0-6) 06/18/24 22:50
Basophils % 0.3 % (0-2) 06/18/24 22:50
PT 21.2 Sec (11.4-14.6) H 06/20/24 03:15
INR 1.78 06/20/24 03:15
Lactic Acid 1.4 mmol/L (0.7-2.0) 06/19/24 09:24
Microbiology Results
06/20/24 CT UE: Severe extensive subcutaneous edema throughout the posterior aspect of the right upper arm, elbow, and forearm. 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 1.3 cm chronic avulsion fracture of the lateral epicondyle. Previous ORIF of a
right mid ulnar diaphyseal fracture with a compression plate and screws in place. Stimulator device and wires in the soft tissues of the right forearm adjacent to the treated fracture.
06/19/24 CXR: Small left pleural effusion. Mild patchy parenchymal opacity in the left lower lung, likely atelectasis.
Assessment / Plan
# V-tach
- For cardiac cath
- For ICD placement
# Right elbow traumatic wound with infection.
-Suspect infect tracts to subcutaneous bone stimulator device/wires placed 1969's.
-Ortho following.
- Ideally prefer to removed infected foreign body prior to ICD placement.
- Wound swab cx pending.
-Start empiric cefazolin
# Conditions prior to admission
Paroxysmal atrial fibrillation
CAD status post CABG, stent
Ischemic cardiomyopathy
Moderate aortic stenosis
History of paraesophageal hernia/gastric volvulus s/prepair
Gastric ulcer
BPH
Depression
Right forearm ORIF with bone stimulator
Cholecystectomy
Bilateral total knee replacement
--- NOTE | 2024-06-20 15:11 | CM ---
CM following re: discharge planning.
Reviewed pt's chart, met with pt.
Per MD, for [facility] Sunday and eventual ICD tentative on Sunday, continue supportive care.
PT and OT will evaluate the pt to determine a level of care at discharge.
Pt lives with daughter Cindy 2SH, 1 step to enter, has 5 supportive children, ambulates with a walker at baseline, known to VN,
D/C plan: most likely home with [facility] and family support. PT and OT to confirm next level of care.
CM will follow with discharge plan updates as hospitalization progresses
--- NOTE | 2024-06-20 15:34 | CON.ORTHO ---
Consultation
-
Date/Time Consultation Requested: 06/20/2024 @ 11:16 AM
Date/Time Consultation Performed: 06/20/2024 @ 12:30 PM
Requesting Provider: Karlene Waite MD
Performing Provider: Carlso Carpio PA-C for Dr. Hank Johnson
Reason for Consultation: Right Elbow Pain
Consultation - Orthopedics
History
Orthopedic Surgery Note
CC: Mechanical Fall and Right Elbow Pain x 1 Week
HPI: The patient is a 88-year-old [id number] male with a past medical history significant for atrial fibrillation, ischemic cardiomyopathy, CAD status post CABG and stent, remote history of right forearm fracture status post ORIF with bone
stimulator placement in 1971 who presented to [facility] on 06/18/2024 due to worsening shortness of breath. Patient is currently undergoing medical treatment for several episodes of V. tach. He reports that he fell and hit his right elbow
on the bathroom floor approximately 1 week ago. He reports that he lives at home with his daughter and son-in-law. He reports progressive swelling since his date of injury and reports no significant pain with attempted range of motion; describes
discomfort. He also sustained a small wound to the posterior elbow secondary to his fall. X-rays were performed and revealed a small focus of air projecting dorsal to the proximal ulna, suggesting a small amount of air within the soft tissues. He
denies any fevers, chills or night sweats. He denies any paresthesias. Orthopedic Surgery was consulted regarding treatment recommendations moving forward.
PMH/PSH: Paroxysmal atrial fibrillation, CAD status post CABG and stent, ischemic cardiomyopathy, moderate aortic stenosis, history of paraesophageal hernia/gastric volvulus s/p repair, gastric ulcer, BPH, depression, right forearm fracture s/p ORIF
with bone stimulator 1971 at [facility], cholecystectomy, bilateral total knee replacement.
Medications: Reviewed.
Family History: Family history was reviewed. Non-contributory.
Social history: Former smoker. Denies EtOH use. Denies illicit drug use. Lives at home with his daughter and son-in-law. [id number].
Exam
General appearance: Pleasant. No acute distress.
Head: Normocephalic/atraumatic
Nose: No lesions or discharge.
Skin: Small wound to posterior elbow.
Lungs: No audible wheezing, no cough or sputum production
Musculoskeletal:
RUE:
Physical examination of the right upper extremity with attention to the right elbow and forearm reveals venous catheter placement. There is extensive subcutaneous edema in comparison to the contralateral side. There is a small wound (approximately
1 cm) about the posterior elbow just medial to the olecranon with some yellowish serous appearing drainage; no gross purulence. Erythematous hue vs. ecchymosis noted. There is no appreciable fluctuance or fluid collection about the posterior elbow
and bursa. Elbow ROM intact with minimal discomfort; 20 degrees shy of terminal extension (patient reports this is his baseline) to approximately 110 degrees of flexion. (+) Mild tenderness to palpation about right elbow. Nontender over proximal
humerus, wrist, or hand. Digital range of motion intact. Fingers are pink and warm. Capillary refill is less than 2 seconds. Sensation intact to light touch.
Imaging:
CR Elbow - RIGHT Min 2 View was obtained at [facility] on 06/19/2024 and was made available for my review today. Findings: There is a sideplate and screws within the visualized proximal right ulna. There is an adjacent battery pack and
electrodes, likely related to a bone stimulating device. There is no evidence for acute fracture or dislocation on these 2 views. Moderate degenerative change of the elbow joint, including spurring. Focal calcification lateral to the lateral
humeral epicondyle and condyle, and this calcification measures 1.5 cm craniocaudal by 0.7 cm transverse, and this likely represents calcific tendinosis. On the lateral view, there is a small focus of air density posterior to the proximal ulna,
suggesting a small amount of air within the posterior soft tissues. Please correlate with any recent intervention in this region. There is enlargement of the dorsal soft tissues adjacent to the elbow. Impression: No evidence for fracture or
dislocation on these 2 views. 20 lateral view, small focus of air projecting dorsal to the proximal ulna, suggesting a small amount of air within the soft tissues. Please correlate with any recent intervention in this region that might introduce
air. Air forming infection would be a differential consideration. Degenerative changes of the right elbow. Focus of calcification lateral to the humeral condyle and epicondyle, which is likely calcific tendinosis. There is no CT evidence for
osseous erosion in the right elbow or joint effusion to suggest septic arthritis.
CT Upper Ext W/o Iv Cont RT was performed at [facility] on 06/20/2024 that was made available for my review today. Impression: 1) Severe extensive subcutaneous edema throughout the posterior aspect of the right upper arm, elbow, and
forearm. Diagnostic possibilities are (1) acute infectious cellulitis, (2) venous stasis, or (3) lymphedema. 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 3) 1.3 cm chronic avulsion fracture of the lateral epicondyle. 4) previous ORIF of right mid
ulnar diaphyseal fracture with compression plate and screws in place. Stimulator device and wires in the soft tissues of the right forearm adjacent to the treated fracture. There is no CT evidence for soft tissue emphysema. There is no CT
evidence for loculated soft tissue fluid collection to suggest the presence of an abscess.
Assessment: 88-year-old wsnlx-ftdo-kweoavgi male with RIGHT elbow traumatic wound and extensive subcutaneous edema. History of ORIF right mid ulnar diaphyseal fracture with stimulator device in place (Samuel Meza 1971).
Plan:
1) Patient presentation and imaging reviewed with Dr. Johnson. At this time, no plans for surgical intervention.
2) Recommend IV antibiotics per Infectious Disease. Recommend warm compress to the posterior elbow/wound care. Edema control. Continue treatment per primary team.
3) Orthopedic surgery will sign off at this time. Please re-engage with any further questions or concerns.
Allergies / Home Medications
Allergy/AdvReac Type Severity Reaction Status Date / Time
No Known Allergies Allergy Verified 06/18/24 23:42
�Medication �Instructions �Recorded
finasteride 5 mg tablet 5 mg PO HS Urinary issue 03/05/20
cyanocobalamin (vitamin B-12) 1,000 mcg PO DAILY Supplement 01/25/21
1,000 mcg tablet
amiodarone 200 mg tablet (Pacerone) 200 mg PO MOWEFR Arrhythmia 11/02/21
atorvastatin 40 mg tablet 40 mg PO HS High Cholesterol 12/19/22
cetirizine 10 mg tablet (Zyrtec) 10 mg PO HS Allergies 12/31/23
magnesium oxide 500 mg PO DAILY Supplement 12/31/23
zinc sulfate 50 mg zinc (220 mg) 50 mg PO DAILY Supplement 12/31/23
tablet
pantoprazole 40 mg tablet,delayed 40 mg PO DAILY Gastrointestinal 02/28/24
release Issue
Probiotic 100 mg PO DAILY Gastrointestinal 06/18/24
Issue
ascorbic acid (vitamin C) 1,000 mg 1,000 mg PO DAILY Supplement 06/18/24
tablet
clopidogrel 75 mg tablet 75 mg PO DAILY Blood Clot 06/18/24
Prevention/Tx
duloxetine 30 mg capsule,delayed 30 mg PO DAILY Mental 06/18/24
release Health/Anxiety
furosemide 40 mg tablet 40 mg PO Q48H Fluid 06/18/24
Retention/Swelling
rivaroxaban 15 mg tablet 15 mg PO DAILY Blood Clot 06/18/24
Prevention/Tx
spironolactone 25 mg tablet 25 mg PO MOWEFR Blood Pressure 06/18/24
Vital Signs / Lab Results
Temp Pulse Resp BP Pulse Ox
98.4 F 52 21 143/68 96
06/20/24 13:34 06/20/24 13:00 06/20/24 12:00 06/20/24 12:00 06/20/24 12:00
06/20/24 03:15
06/20/24 03:15
[2024-06-20 17:24] LABS: Glucose - Point of Care 142 mg/dl (70-99)
--- NOTE | 2024-06-20 17:26 | PTCARENOTE ---
pt arrived on 3W in wheelchair. placed on tele. in chair with chair alarm. call riley within reach. will continue to monitor.
[2024-06-20 21:08] LABS: Glucose - Point of Care 158 mg/dl (70-99)
[2024-06-20] MEDS: PACERONE PO ×2 (21:51→23:06)
--- NOTE | 2024-06-20 22:00 | PTCARENOTE ---
Patient's heart rate sustaining in the 30's. Patient remains asymptomatic. Pacer pads placed on patient. Patient due for 400mg PO Amiodarone. Order obtained from TASHI Capone to hold 2000 dose. Will continue to monitor.
[2024-06-20] MEDS: ANCEF 5 IV (22:01)
[2024-06-21] VITALS (8 sets, daily range): BP systolic 117–190; BP diastolic 56–78; O2SAT 94; BMI 22.3
--- NOTE | 2024-06-21 00:15 | PTCARENOTE ---
Patient remains bradycardic, frequent pauses, longest being 3.1 seconds EKG obtained. EKG sent to Stephane Turner. No new orders received at this time. Patient remains asymptomatic. Will continue to monitor.
[2024-06-21] MEDS: ANCEF 5 IV ×3 (05:29→21:08)
[2024-06-21 08:15] LABS: Glucose - Point of Care 125 mg/dl (70-99)
[2024-06-21] MEDS: HEPARIN 5000 UNITS SC ×2 (08:52→20:22)
[2024-06-21] MEDS: PROTONIX IV 40 MG IV ×2 (08:52→20:22)
[2024-06-21] MEDS: CYMBALTA DELAYED RELEASE 30 MG PO (08:52)
[2024-06-21] MEDS: LOW STRENGTH ASPIRIN 81 MG PO (08:52)
[2024-06-21] MEDS: NSS (PRESERVATIVE FREE) 10 ML IV ×2 (08:52→20:22)
[2024-06-21] MEDS: PACERONE 400 MG PO (08:53)
[2024-06-21] MEDS: NOVOLOG FLEXPEN-LOW RESISTANCE SC ×2 (08:54→18:22)
[2024-06-21 09:06] LABS: Hematocrit 28.1 % (39.0-52.0); Hemoglobin 8.3 g/dL (13.0-18.0); Mean Corp Hgb Conc. 29.5 g/dL (33.0-37.0); Mean Corpuscular Volume 88.1 fL (80.0-94.0); Platelet Count 359 10^3/uL (130-400); Red Blood Cell Count 3.19 10^6/uL (4.70-6.10); Red Cell Dist. Width 17.1 % (11.5-14.5)
--- NOTE | 2024-06-21 09:28 | W.PN.HOSP.TC ---
Today's Communication/Plan
-
trial Tylenol for headache
monitor BP
monitor Tele
IV Ancef
Assessment / Plan
Assessment / Plan
Assessment:
V-tach with syncope
Underlying history of permanent A. Flutter per Cardiology
- life-threatening diagnosis
- s/p Amio Load, became bradycardic on IV Amiodarone; now on oral Amiodarone
- monitor tele
- monitor electrolytes
- Echo: 06/19/2024: LVEF 55-60%, moderate MS (17/7 mmHg), moderate (41/22 mmHg, BRANDI 1.0 cm�), mild TR, PASP 37 mmHg
- EP/CBC cards following
- for [facility] Sunday and eventual ICD
non-ischemic myocardial injury in setting of YARA, anemia, arrhythmia
Hx of CAD with hx of CABG
- trop .135 peak
- continue ASA
- IV heparin stopped; Xarelto remains held
Acute on Chronic Normocytic Anemia
GERD/PUD
- Had gastric ulcer on EGD last admission (12/2023)
- s/p 2 unit PRBCs. Hb 8.3 most recently
- heme test stools - last BM reported normal brown appearance
Chronic HFmEF (per Cardiology)
- Complains of SOB - but seems likely reflection of arrhythmia and not volume overload.
- Lasix held with YARA
- Follow I/Os, daily weights, etc.
- Update Echo as noted above.
YARA on CKD III
Anion Gap Metabolic Acidosis
- SCr = 2.4 compared to prior baseline of 1.5. Currently 1.7
- AG on admission = 18.
- Likely due to decreased perfusion/arrhythmia.
- mild lactic acidosis resolved
- follow BMP
- follow urine studies
- Nephrology following
Right Elbow Pain
- Patient with bone stimulator in place R elbow (old).
- X-ray: On the lateral view, small focus of air projecting dorsal to the proximal ulna, suggesting a small amount of air within the soft tissues. Please correlate with any recent intervention in this region that might introduce air. Air forming
infection would be a differential consideration.
- CT: Severe extensive subcutaneous edema throughout the posterior aspect of the right upper arm, elbow, and forearm
- ID following; continue IV Ancef, day 2. Wound culture pending. Documented 'Ideally prefer to removed infected foreign body prior to ICD placement'
- Orthopedics consulted; no surgical intervention planned. Plan for OP f.u.
Headache
- Patient had similar posterior headache on prior admission - ultimately due to worsened anemia.
- Treat anemia/transfusion as noted above.
- Change Plavix back to ASA as symptoms seemed to begin with this change.
- Patient is awake and alert (between arrhythmia episodes) and has no focal findings on exam.
- trial Tylenol prn
BPH
- Stable. bladder scan protocol.
Elevated TSH
- normal T4
- repeat TFT in 6 weeks
Hyperkalemia
- Lokelma x 1
DVT Prophylaxis: SC Heparin
Code Status: Full
Anticipated Discharge: > 48 hours
Subjective/Interval History
-
Date of Service: June 21, 2024
reports mild ongoing headache, no focal weakness/sensory deficits
remains in sinus rhythm
Objective Data
-
Labs:
Laboratory Results
06/21/24
06:51
WBC 11.0 H
Hgb 8.3 L
Hct 28.1 L
Plt Count 359
Sodium Pending
Potassium Pending
Chloride Pending
Carbon Dioxide Pending
BUN Pending
Creatinine Pending
Glucose Pending
Calcium Pending
Vital Signs:
Vital Signs
Temp Pulse Resp BP Pulse Ox
98.3 F 61 16 175/75 98
06/21/24 07:52 06/21/24 07:52 06/21/24 07:52 06/21/24 07:52 06/21/24 07:52
I&O
06/20/24 06/21/24 06/22/24
06:59 06:59 06:59
Intake Total 775.5 / 783.0 1310.0 / 1310.0
Output Total 1450 / 1450 525 / 525
Balance -674.5 / -667.0 785.0 / 785.0
Physical Exam
-
General: No Apparent Distress
HEENT: Normocephalic and Atraumatic
Respiratory: Negative Wheezes
Cardiac: Regular Rhythm and S1/S2
GI: Soft
Genito-urinary: No Costovertebral Tender
Neuro: AO x 3
Psych: Calm
Data Reviewed
-
Total Time Spent with Patient (in minutes): 41
Labs: Labs Reviewed by me
[2024-06-21 09:32] LABS: Blood Urea Nitrogen 34 mg/dl (9-20); Carbon Dioxide 25 mmol/L (22-30); Chloride 104 mmol/L (98-107); Estimated Creatinine Clearance 30 ml/min; Glucose 107 mg/dl (70-99); Magnesium 2.4 mg/dl (1.6-2.3); Phosphorus 3.8 mg/dl (2.5-4.5); Potassium 5.2 mmol/L (3.5-5.1); Sodium 140 mmol/L (135-145); eGFR 38.53
[2024-06-21] MEDS: TYLENOL 650 MG PO (10:10)
[2024-06-21] MEDS: LOKELMA 5 GRAM PO (10:28)
--- NOTE | 2024-06-21 10:33 | W.PN.NEPH.PH ---
Today's Communication / Plan
-
Follow BMP
Creatinine continues to improve now down to 1.7 but hyperkalemia noted
Lokelma was provided earlier
Assessment/Plan
-
Assessment
Bradycardia
Atrial flutter
ASCVD
YARA
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
Acute anemia
Plan
Blood pressure is stable
Creatinine improved to 1.7,non oliguric
No additional IV fluids required and holding lasix
K up to 5.2, Lokelma provided, Aldactone still held
He does not appear to be volume overloaded
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
Recent urinalyses as well as rising creatinine would suggest some sort of tubulointerstitial or ischemic process
-
-
Date of Service: June 21, 2024
CC / HPI / ROS
-
Chief Complaint:
Acute kidney injury
History of Present Illness:
Creatinine improving to 1.7
Hemodynamically stable
Remains on amiodarone for atrial fibrillation
Review of Systems:
Grossly nonoliguric
No chest pain or shortness of breath
Labs
-
Labs:
WBC 11.0 10^3/uL (4.8-10.8) H 06/21/24 06:51
RBC 3.19 10^6/uL (4.70-6.10) L 06/21/24 06:51
Hgb 8.3 g/dL (13.0-18.0) L 06/21/24 06:51
Hct 28.1 % (39.0-52.0) L 06/21/24 06:51
Plt Count 359 10^3/uL (130-400) 06/21/24 06:51
Sodium 140 mmol/L (135-145) 06/21/24 06:51
Potassium 5.2 mmol/L (3.5-5.1) H 06/21/24 06:51
Chloride 104 mmol/L (98-107) 06/21/24 06:51
Carbon Dioxide 25 mmol/L (22-30) 06/21/24 06:51
BUN 34 mg/dl (9-20) H 06/21/24 06:51
Creatinine 1.7 mg/dL (0.7-1.3) H 06/21/24 06:51
eGFR 38.53 06/21/24 06:51
Glucose 107 mg/dl (70-99) H 06/21/24 06:51
Calcium 9.0 mg/dl (8.4-10.2) 06/21/24 06:51
Phosphorus 3.8 mg/dl (2.5-4.5) 06/21/24 06:51
Tod-Q-Aifmhantwwd Pept 4970 pg/ml 06/18/24 22:50
Albumin 4.9 g/dl (3.5-5.0) 06/18/24 22:50
Physical Exam
-
Vital Signs:
Vital Signs
Temp Pulse Resp BP Pulse Ox
98.3 F 61 16 143/60 98
06/21/24 07:52 06/21/24 09:30 06/21/24 07:52 06/21/24 09:30 06/21/24 07:52
Cardiovascular:: Regular rate and rhythm
Respiratory:: Bilateral: CTA
Lung Excursion:: Normal
Abdomen:: Nontender and Soft
Extremity Edema:: None: Bilateral:
Collins Catheter: No
[2024-06-21 11:44] LABS: Glucose - Point of Care 152 mg/dl (70-99)
[2024-06-21] MEDS: NOVOLOG FLEXPEN-LOW RESISTANCE 1 UNITS SC (12:06)
--- NOTE | 2024-06-21 15:14 | W.PN.CD ---
Today's Communication / Plan
-
Decrease amiodarone to 200 mg twice daily for bradycardia
Continue to hold Lasix
LHC Sunday
Tentative ICD on Sunday. Will check with ID re: elbow infection
Impression / Plan
-
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
Polymorphic VT, syncope:
-diagnosis is threat to life
-was on IV amiodarone, but became bradycardic. Bradycardic on Amio 400 BID so will decrease to 200 BID
-C Sunday when creatinine is back to baseline
-Tentative ICD Sunday pending results of LHC and elbow infection. Need to check with ID if he can get ICD implantation
#Traumatic elbow wound with infection
-No need for OR per ortho. Patient on abx. Blood cx negative
-ID following
-Will make sure ID ok with ICD implant
Headaches
-Present on admission. Pt does not recall trauma but on AC as outpatient
-CTH prior to cath when he may get heparin bolus
CAD with hx CABG and stenting:
-recent cath as below
-on ASA here- continue. Plavix held.
-no CP
Abnormal troponin:
-denies CP. Peaked at 0.135.
-likely non-ischemic myocardial injury in setting of YARA, anemia, arrhythmia but cannot rule out ongoing ischemia given polymorphic VT as above
-Echo with no new wall motion abnormalities
-Heparin stopped for ongoing anemia requiring 2U pRBCs
-[facility] Sunday
Anemia, jizag-yd-kqqegpk:
-denies clinical bleeding
-s/p 2 unit PRBC
-heparin stopped
-work-up per primary team
Atrial flutter, permanent:
-on Xarelto as OP, held for bleeding and upcoming procedures
-monitor rates with amio
HF recovered EF: chronic
-TTE 06/19/2024: LVEF 55-60%, moderate MS (17/7 mmHg), moderate (41/22 mmHg, BRANDI 1.0 cm�), mild TR, PASP 37 mmHg
-does not appear overloaded to assessment
-hold Lasix for YARA
YARA on CKD:
-nephro on the case
DATA:
Cardiac cath 03/16/24: Right dominant circulation with chronic total occlusion of the distal RCA, chronic total occlusion of the left circumflex, 60-70% tapering of the distal left main, a 90% proximal LAD lesion and chronic total occlusion of the
mid LAD status post prior bypass (patent FORD to LAD, patent sequential SVG to RPDA to OM) with patent stent in the proximal SVG. Severely elevated filling pressures (LVEDP = 25 mmHg, PCWP = 26 mmHg at 71.7 kg). Mild reduction in systolic function,
LVEF estimated at 45% with mild global hypokinesis. Mild aortic valve stenosis (mean gradient = 13.29 mmHg, estimated valve area = 1.8 cm�). 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
output = 5.01 L/min, PVR = 4.59 Singh units), likely WHO group 2 and group 5. Significant arterial hypertension while in the [employer]. In consultation with his daughter, it is revealed that this is likely due to anxiety as the patient's blood
pressures are typically 110/60 at home.
Subjective: Patient complaining of a headache that has been going on for a few weeks. When the headache comes on he feels dizzy but he is otherwise asymptomatic. Hemoglobin stable at 8.3 from 7.8. Creatinine 1.7 from 1.8. K 5.2.
Physical Exam
Vital Signs/Labs
Vital Signs
Temp Pulse Resp BP Pulse Ox
98.2 F 61 16 159/68 99
06/21/24 11:35 06/21/24 11:35 06/21/24 11:35 06/21/24 11:35 06/21/24 11:35
06/20/24 06/21/24 06/22/24
06:59 06:59 06:59
Actual Weight 70 kg 70.42 kg
06/21/24 06:51
06/21/24 06:51
PT 21.2 Sec (11.4-14.6) H 06/20/24 03:15
INR 1.78 06/20/24 03:15
APTT Cancelled 06/20/24 15:00
Magnesium 2.4 mg/dl (1.6-2.3) H 06/21/24 06:51
Free T4 1.34 ng/dl (0.78-2.19) 06/19/24 02:56
06/18/24
22:50
Rlj-F-Ezthxsmrwcq Pept 4970
LAB Results
06/18/24 06/19/24 06/19/24
22:50 02:56 09:24
Troponin I 0.095 H* 0.115 H* 0.135 H*
06/19/24 06/19/24 06/19/24
14:09 16:53 22:00
Troponin I Cancelled 0.107 H* Cancelled
06/20/24
03:15
Troponin I 0.092 H*
Physical Exam
Constitutional: No acute distress and Comfortable
Cardiovascular: Rhythm/rate is irregular, Pedal edema present, S1S2 is normal and Murmur/rub/gallop absent
Respiratory: Respiratory effort normal and Lungs clear to auscul.
Neuro/Psych: AO x 3
Data Reviewed
-
Date of Service: June 21, 2024
Medical Decision Making: Reviewed Test Results, Independent Historian Assessment, Test Interpretation and Review of Case with other Provider
EKG: Tracing Personally Visualized and interpreted
Echo: Report Reviewed by me
Labs: Labs Reviewed by me
[2024-06-21 16:48] LABS: Glucose - Point of Care 112 mg/dl (70-99)
[2024-06-21] MEDS: PACERONE 200 MG PO (20:22)
[2024-06-21 21:34] LABS: Glucose - Point of Care 130 mg/dl (70-99)
[2024-06-22] VITALS (18 sets, daily range): BP systolic 98–186; BP diastolic 38–83; BMI 21.7
[2024-06-22] MEDS: ANCEF 5 IV ×3 (05:08→22:05)
[2024-06-22 07:57] LABS: Glucose - Point of Care 101 mg/dl (70-99)
[2024-06-22 08:03] LABS: Hematocrit 29.3 % (39.0-52.0); Hemoglobin 8.9 g/dL (13.0-18.0); Mean Corp Hgb Conc. 30.4 g/dL (33.0-37.0); Mean Corpuscular Hgb 26.3 pg (27.0-31.0); Mean Corpuscular Volume 86.7 fL (80.0-94.0); Platelet Count 395 10^3/uL (130-400); Red Blood Cell Count 3.38 10^6/uL (4.70-6.10); Red Cell Dist. Width 17.5 % (11.5-14.5); White Blood Cell Count 14.9 10^3/uL (4.8-10.8)
[2024-06-22 08:22] LABS: Blood Urea Nitrogen 26 mg/dl (9-20); Calcium 9.2 mg/dl (8.4-10.2); Carbon Dioxide 27 mmol/L (22-30); Chloride 103 mmol/L (98-107); Estimated Creatinine Clearance 34 ml/min; Glucose 138 mg/dl (70-99); Sodium 140 mmol/L (135-145); eGFR 44.78
[2024-06-22] MEDS: CYMBALTA DELAYED RELEASE 30 MG PO (09:32)
[2024-06-22] MEDS: NOVOLOG FLEXPEN-LOW RESISTANCE SC ×3 (09:32→18:13)
[2024-06-22] MEDS: PROTONIX IV 40 MG IV ×2 (09:33→20:43)
[2024-06-22] MEDS: HEPARIN 5000 UNITS SC ×2 (09:33→20:44)
[2024-06-22] MEDS: NSS (PRESERVATIVE FREE) 10 ML IV ×2 (09:33→20:44)
[2024-06-22] MEDS: LOW STRENGTH ASPIRIN 81 MG PO (09:33)
[2024-06-22] MEDS: PACERONE 200 MG PO (09:33)
[2024-06-22] MEDS: TYLENOL 650 MG PO ×2 (09:44→22:05)
[2024-06-22 11:11] LABS: Glucose - Point of Care 163 mg/dl (70-99)
--- NOTE | 2024-06-22 11:17 | W.PN.HOSP.TC ---
Today's Communication/Plan
-
IVU transfer
start Lidocaine infusion
CT head for ongoing headaches
Assessment / Plan
Assessment / Plan
Assessment:
V-tach with syncope
Underlying history of permanent A. Flutter per Cardiology
- life-threatening diagnosis
- s/p Amio Load, became bradycardic on IV Amiodarone; now on oral Amiodarone with bradycardia but now with runs of VT to 20 beats - asymptomatic
- start Lidocaine infusion
- transfer to IVU
- monitor tele
- monitor electrolytes
- Echo: 06/19/2024: LVEF 55-60%, moderate MS (17/7 mmHg), moderate (41/22 mmHg, BRANDI 1.0 cm�), mild TR, PASP 37 mmHg
- EP/CBC cards following
- for [facility] Sunday and eventual ICD; possible Cath earlier today
non-ischemic myocardial injury in setting of YARA, anemia, arrhythmia
Hx of CAD with hx of CABG
- trop .135 peak
- continue ASA
- IV heparin stopped; Xarelto remains held
Acute on Chronic Normocytic Anemia
GERD/PUD
- Had gastric ulcer on EGD last admission (12/2023)
- s/p 2 unit PRBCs. Hb 8.9 most recently
- heme test stools - last BM reported normal brown appearance
Chronic HFmEF (per Cardiology)
- Complains of SOB - but seems likely reflection of arrhythmia and not volume overload.
- Lasix held with YARA
- Follow I/Os, daily weights, etc.
- Update Echo as noted above.
YARA on CKD III
Anion Gap Metabolic Acidosis
- SCr = 2.4 compared to prior baseline of 1.5. Currently 1.5
- AG on admission = 18.
- Likely due to decreased perfusion/arrhythmia.
- mild lactic acidosis resolved
- follow BMP
- follow urine studies
- Nephrology following
Right Elbow Pain
- Patient with bone stimulator in place R elbow (old).
- X-ray: On the lateral view, small focus of air projecting dorsal to the proximal ulna, suggesting a small amount of air within the soft tissues. Please correlate with any recent intervention in this region that might introduce air. Air forming
infection would be a differential consideration.
- CT: Severe extensive subcutaneous edema throughout the posterior aspect of the right upper arm, elbow, and forearm
- ID following; continue IV Ancef, day 2. Wound culture pending. Documented 'Ideally prefer to removed infected foreign body prior to ICD placement'
- Orthopedics consulted; no surgical intervention planned. Plan for OP f.u.
Headache
- Patient had similar posterior headache on prior admission - ultimately due to worsened anemia.
- Treat anemia/transfusion as noted above.
- Change Plavix back to ASA as symptoms seemed to begin with this change.
- Patient is awake and alert (between arrhythmia episodes) and has no focal findings on exam.
- trial Tylenol prn
- CT head now
BPH
- Stable. bladder scan protocol.
Elevated TSH
- normal T4
- repeat TFT in 6 weeks
Hyperkalemia
- K 5.0; repeat BMP now with ongoing VT spells
DVT Prophylaxis: SC Heparin
Code Status: Full
Total Critical Care Time 51 minutes. I was immediately available to the patient and staff. I personally examined, reviewed labs, diagnostic images/reports, interpretations, treatment plans, discussed patient care with other providers and family
or caregivers (if patient is unable to make decisions), entered orders as appropriate and documented the medical record.
Anticipated Discharge: > 48 hours
Subjective/Interval History
-
Date of Service: June 22, 2024
subjectively SOB but not hypoxic
no chest pain
20 beat VT run, asymptomatic at this time
IRONWORKER APPRENTICE called
Objective Data
-
Labs:
Laboratory Results
06/22/24
06:53
WBC 14.9 H
Hgb 8.9 L
Hct 29.3 L
Plt Count 395
Sodium 140
Potassium 5.0
Chloride 103
Carbon Dioxide 27
BUN 26 H
Creatinine 1.5 H
Glucose 138 H
Calcium 9.2
Vital Signs:
Vital Signs
Temp Pulse Resp BP Pulse Ox
98.0 F 39 18 105/54 98
06/22/24 11:14 06/22/24 11:14 06/22/24 11:14 06/22/24 11:14 06/22/24 11:14
I&O
06/21/24 06/22/24 06/23/24
06:59 06:59 06:59
Intake Total 1310.0 / 1310.0 1720 / 1720
Output Total 525 / 525 1025 / 1025
Balance 785.0 / 785.0 695 / 695
Physical Exam
-
General: No Apparent Distress
HEENT: Normocephalic and Atraumatic
Cardiac: Irregular Rhythm and Bradycardic
GI: Soft and Nontender
Musculoskeletal: No Edema
Neuro: AO x 3
Hematologic / Lymphatic: No Lymphadenopathy
Psych: Calm
Data Reviewed
-
Critical Care Time (in minutes): 51
Labs: Labs Reviewed by me
--- NOTE | 2024-06-22 11:33 | STATUS ---
SITUATION:
PT had 20 beat run of polymorphic Vtach. complaining of SOB (HR baseline 40s (on amiodarone) severe headache
BACKGROUND:
PT with hx of polymorphic Vtack. pt on amioadaone 400 mg BID yesterday reduced to 200 mg BID because of bradycardia down to 20s. Pt was for [facility] Sunday and [facility] sunday. Mag yesterday 2.4
ASSESSMENT:
Pt with Am bp 186/86 severe headache, tylenol given, am meds given ice given, headache improved, Then had 20 beat run poly morphic VT tach, pt immediatly starting complaining of SOB and sitting in tripod position with cynotic fingers and nose.
Lungs dec clear no coughing, RR 20 regular non labored and pulse ox was 98% but verbally complaining of cant getting air. Pt assisted back to bed EKG obtained, Trops obtained oxygen applied for comfort. Cards notified, came to froom . Attending
called and came to room. SBP 120s, BS 161, pt felt better. [id number] ptg had another round of 20 beat run of polymorphic VT. CT head ordered and to be sent down. PT Ordered for transfer to IVU. awaiting bed.
RECOMMENDATION:
See assessment above
--- NOTE | 2024-06-22 11:51 | W.PN.NEPH.PH ---
Today's Communication / Plan
-
Observing off Aldactone and lasix
For transfer to IVU for ventricular tachycardia now on IV lidocaine and amiodarone
Assessment/Plan
-
Assessment
Bradycardia
Atrial flutter
ASCVD
YARA
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
Acute anemia
Plan
Blood pressure is stable but plymorphic V. tach earlier today now on lidocaine infusion
Creatinine improved to 1.5,non oliguric
No additional IV fluids required and holding lasix
K down to 5, Aldactone still held
He does not appear to be volume overloaded
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
Recent urinalyses as well as rising creatinine would suggest some sort of tubulointerstitial or ischemic process
-
-
Date of Service: June 22, 2024
CC / HPI / ROS
-
Chief Complaint:
Acute kidney injury
History of Present Illness:
Creatinine improving to 1.5
Hemodynamically stable
Remains on amiodarone for atrial fibrillation
K down to 5
V tach with syncope now on lidocaine infusion and amiodarone
Review of Systems:
Grossly nonoliguric and weights down
No chest pain or shortness of breath but on O2 nc
Labs
-
Labs:
WBC 14.9 10^3/uL (4.8-10.8) H 06/22/24 06:53
RBC 3.38 10^6/uL (4.70-6.10) L 06/22/24 06:53
Hgb 8.9 g/dL (13.0-18.0) L 06/22/24 06:53
Hct 29.3 % (39.0-52.0) L 06/22/24 06:53
Plt Count 395 10^3/uL (130-400) 06/22/24 06:53
eGFR 44.78 06/22/24 06:53
Phosphorus 3.8 mg/dl (2.5-4.5) 06/21/24 06:51
Npw-H-Rdepykivazi Pept 4970 pg/ml 06/18/24 22:50
Albumin 4.9 g/dl (3.5-5.0) 06/18/24 22:50
Physical Exam
-
Vital Signs:
Vital Signs
Temp Pulse Resp BP Pulse Ox
98.0 F 39 18 105/54 98
06/22/24 11:14 06/22/24 11:14 06/22/24 11:14 06/22/24 11:14 06/22/24 11:14
Cardiovascular:: Regular rate and rhythm
Respiratory:: Bilateral: CTA
Lung Excursion:: Normal
Abdomen:: Nontender and Soft
Extremity Edema:: None: Bilateral:
Collins Catheter: No
[2024-06-22 11:57] LABS: Blood Urea Nitrogen 27 mg/dl (9-20); Calcium 8.9 mg/dl (8.4-10.2); Carbon Dioxide 22 mmol/L (22-30); Chloride 102 mmol/L (98-107); Estimated Creatinine Clearance 34 ml/min; Glucose 171 mg/dl (70-99); Potassium 5.1 mmol/L (3.5-5.1); Sodium 137 mmol/L (135-145); eGFR 44.78
[2024-06-22 12:08] LABS: Troponin I 0.156 ng/ml
--- NOTE | 2024-06-22 12:11 | W.PN.CD ---
Today's Communication / Plan
-
Continue amiodarone 200 mg twice daily
Start lidocaine 90 mg bolus and infusion at 1 mg/min
Head CT
If head CT with no bleed, restart heparin
Left heart catheterization today
Impression / Plan
-
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
He was initially on IV amiodarone but developed bradycardia. He was switched to p.o. amiodarone 400 mg twice daily but bradycardia continued, so dose was reduced to 200 mg twice daily yesterday. This morning he had a 20 beat run of asymptomatic
polymorphic VT. 20 minutes later he developed acute shortness of breath with dynamic EKG changes. Troponin is 0.156 from 0.092 on 06/20.
Polymorphic VT, syncope:
-diagnosis is threat to life. Concern for ongoing myocardial ischemia.
-Continue amiodarone 200 mg twice daily (max dose due to bradycardia)
-Start lidocaine bolus and infusion for ongoing paroxysms of polymorphic VT
-LHC today
-Restart heparin pending head CT results
-Will decide on ICD plan after catheterization. Need to OK with ID given elbow infection
Abnormal troponin:
-denies CP. Initially peaked at 0.135. Now rising again with dynamic EKG changes
-concern for ongoing ischemia
-Heparin stopped for anemia requiring 2U pRBCs. Consider resuming following head CT
-LHC today
Headaches
-Present on admission. Pt does not recall trauma but on AC as outpatient
-CTH today prior to heparin and LHC
CAD with hx CABG and stenting:
-recent cath as below
-on ASA here- continue. Plavix held.
-coronary eval as above
#Traumatic elbow wound with infection
-No need for OR per ortho. Patient on abx. Blood cx negative
-ID following
-Will make sure ID ok with ICD implant
Anemia, tzyfd-zn-pjhsnvl:
-denies clinical bleeding
-s/p 2 unit PRBC
-heparin stopped
-work-up per primary team
Atrial flutter, permanent:
-on Xarelto as OP, held for bleeding and upcoming procedures
-monitor rates with amio
HF recovered EF: chronic
-TTE 06/19/2024: LVEF 55-60%, moderate MS (17/7 mmHg), moderate (41/22 mmHg, BRANDI 1.0 cm�), mild TR, PASP 37 mmHg
-does not appear overloaded to assessment
-hold Lasix for YARA
YARA on CKD:
-nephro on the case
CCT: 51 min
DATA:
Cardiac cath 03/16/24: Right dominant circulation with chronic total occlusion of the distal RCA, chronic total occlusion of the left circumflex, 60-70% tapering of the distal left main, a 90% proximal LAD lesion and chronic total occlusion of the
mid LAD status post prior bypass (patent FORD to LAD, patent sequential SVG to RPDA to OM) with patent stent in the proximal SVG. Severely elevated filling pressures (LVEDP = 25 mmHg, PCWP = 26 mmHg at 71.7 kg). Mild reduction in systolic function,
LVEF estimated at 45% with mild global hypokinesis. Mild aortic valve stenosis (mean gradient = 13.29 mmHg, estimated valve area = 1.8 cm�). 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
output = 5.01 L/min, PVR = 4.59 Singh units), likely WHO group 2 and group 5. Significant arterial hypertension while in the [employer]. In consultation with his daughter, it is revealed that this is likely due to anxiety as the patient's blood
pressures are typically 110/60 at home.
Subjective: Called to bedside for acute SOB. Patient also 'doesn't feel like himself'. At 10:36 AM, he had a self-terminating 20 beat run of polymorphic VT. At that time he was asymptomatic, but following that developed acute SOB without chest pain.
SpO2 was 100% and he was laying completely flat. BP stable. ECG at that time with slow atrial flutter (HR 38) and new TWI in the inferolateral leads. SOB resolved after a few minutes and by the end of my assessment he was asymptomatic. He is also
still having headaches. Amiodarone had to be lowered to 200mg BID yesterday for bradycardia.
Physical Exam
Vital Signs/Labs
Vital Signs
Temp Pulse Resp BP Pulse Ox
98.0 F 39 18 105/54 98
06/22/24 11:14 06/22/24 11:14 06/22/24 11:14 06/22/24 11:14 06/22/24 11:14
06/21/24 06/22/24 06/23/24
06:59 06:59 06:59
Actual Weight 70.42 kg 68.748 kg
06/22/24 06:53
06/22/24 11:34
PT 21.2 Sec (11.4-14.6) H 06/20/24 03:15
INR 1.78 06/20/24 03:15
APTT Cancelled 06/20/24 15:00
Magnesium 2.4 mg/dl (1.6-2.3) H 06/21/24 06:51
Free T4 1.34 ng/dl (0.78-2.19) 06/19/24 02:56
06/18/24
22:50
Nxs-T-Nsqrcbgjadj Pept 4970
LAB Results
06/19/24 06/19/24 06/20/24
16:53 22:00 03:15
Troponin I 0.107 H* Cancelled 0.092 H*
06/22/24
11:34
Troponin I 0.156 H*
Physical Exam
Constitutional: No acute distress and Comfortable
Cardiovascular: Systolic murmur absent and Rhythm/rate is irregular
Respiratory: Respiratory effort normal and Lungs clear to auscul.
Data Reviewed
-
Date of Service: June 22, 2024
Medical Decision Making: Reviewed Test Results, Tests Ordered, Independent Historian Assessment, Test Interpretation and Review of Case with other Provider
EKG: Tracing Personally Visualized and interpreted
Echo: Report Reviewed by me
Labs: Labs Reviewed by me and Labs Ordered by me
Critical Care Time (in minutes): 51
--- NOTE | 2024-06-22 12:53 | PTCARENOTE ---
report called to IVU nurse. RN stated to send patient to IVU after CT scan. Lidocaine bag sent from pharmacy, bolus not sent. Transport came for stat Ct scan. we got him onto stretcher attached him to portal monitor, pharmacy called and stated
lidocaine bolus is in pyxis. I did pull it. CT scan called floor at same time needing patient stat. Current Rate was 56 nancy. With HVAC TECHNICIAN RESIDENTIAL we transported pt to CT scan, stat, completed within five minutes and I was able to transport pt to IVU.
assisted patient over in bed
[2024-06-22] MEDS: XYLOCAINE 2 GRAM 500 IV (13:03)
--- NOTE | 2024-06-22 13:05 | PTCARENOTE ---
Rec'd Pt [id number] as transfer from [facility], after Pt had CT scan. He is A,A+Ox3, denies pain. HR 20-40's, looks like A-flutter. Dr Zuniga aware, will hold Lidocaine bolus but will start IV drip @ 1mg/min as ordered.
--- NOTE | 2024-06-22 13:30 | PTCARENOTE ---
laboratory tech RN called for Report, Pt picked up and taken to [facility] by [facility] staff. Pt's daughter Evangelina notified that Pt was going to [facility].
--- NOTE | 2024-06-22 14:41 | ITS.CL.CATH ---
Solar Sales Manager - Catheterization
Cardiac Catheterization
Procedure Report:
CARDIAC CATHETERIZATION REPORT
Date of Procedure: 06/22/2024
Referring: Aristides Zuniga M.D.
INDICATION: Polymorphic ventricular tachycardia, known coronary artery disease.
PROCEDURE:
1. Left heart catheterization.
2. Coronary angiography.
3. Bypass angiography.
A total of 0 minutes of procedural/moderate sedation was utilized. An independent medical claims examiner was present to assist with and help manage the patient's level of consciousness and physiologic status.
ACCESS:
1. 6 Angolan left radial artery using a modified Seldinger technique.
CATHETERS:
1. 5 Angolan LEONARD.
2. 5 Angolan JR4.
3. 5 Angolan JL 4.
HEMODYNAMIC DATA
Weight (kg): 68.5
AO (s/d/x, mmHg): 129/54/78
LV (s/x mmHg): 142/27
AV gradient (x, mmHg): 20.3
LEFT VENTRICULOGRAPHY: Not performed.
CORONARY ANGIOGRAPHY
Dominance: Right.
Left Main: Normal size, bifurcating vessel. There is a 50-60% lesion in the distal left main coronary artery leading into the LAD and circumflex.
LAD: Normal size vessel giving rise to 1 significant diagonal. There is a 95% lesion in the mid LAD immediately after the first diagonal. The distal LAD is supplied by patent FORD graft.
Ramus: Congenitally absent.
Circumflex: Normal size, nondominant vessel that is essentially a single obtuse marginal. The vessel is chronically totally occluded in its proximal margin. The obtuse marginal supplied by patent sequential vein graft.
RCA: Normal size, dominant vessel that is difficult to engage. Nonselective angiography shows chronic total occlusion of the vessel in its distal margin. The RPDA is supplied by a sequential vein graft.
BYPASS GRAFT ANGIOGRAPHY
FORD to LAD: Normal size graft with end-to-side anastomosis to the mid LAD. There is no evidence of stenosis or graft degeneration.
SVG to RPDA 2 OM: Normal size graft with [id number] anastomosis to the RPDA and end-to-side anastomosis to the obtuse marginal. A patent stent is present in the proximal third of the graft. There is no evidence of stenosis or graft degeneration.
INTERVENTION(S)
None.
Closure Device: Vascular band
Radiation (mGy): 249.77
DAP (cm2.Gy): 22.8893
Fluoroscopy time (minutes): 2.9
CONCLUSIONS
1. Right dominant circulation with chronic total occlusion of the distal RCA, chronic total occlusion of the proximal circumflex and a 95% lesion in the mid LAD status post prior bypass (patent FORD to LAD, patent sequential SVG to RPDA to OM) with
a patent stent in the proximal third of the SVG.
2. Severely elevated filling pressures (LVEDP = 27 mmHg at 68.5 kg).
3. Probably moderate aortic valve stenosis (mean gradient 20 mmHg).
4. No ischemic nidus for polymorphic VT.
RECOMMENDATIONS:
1. Expectant management after cardiac catheterization via left radial approach.
2. Limited weight bearing on the left wrist for one week.
3. Continue aggressive secondary prevention with high-dose, high potency statin.
4. The patient may tolerate aggressive diuresis given severely elevated LVEDP.
5. GDMT/OMT as hemodynamics will tolerate.
6. Plan for ICD implantation tomorrow for primary prevention of sudden cardiac .
7. Serial surveillance of aortic valve stenosis.
Copy to: Aristides Zuniga M.D., Da Merritt M.D., Adrián Lyons M.D.
Raul Greenfield, DO, FACC, FACP
--- NOTE | 2024-06-22 14:50 | PTCARENOTE ---
Rec'd Pt post card cath, A,A+Ox3, denies pain, HR SB-SR 50-60's. L radial band in place, L hand dusky. L arm position changed and placed on pillow, Pt's hand now looks pinker, pulsox 100%.
--- NOTE | 2024-06-22 14:59 | W.PN.UPDATE ---
Update Note
Progress Note Update
Patient underwent LHC which showed stable coronary artery disease. Ongoing ischemia is unlikely to be the cause for his polymorphic VT. Could be due to R-on-T phenomenon in the setting of bradycardia. Will give 2 g IV mag. Stop lidocaine and
hold tonight's dose of amiodarone due to persistent bradycardia. Plan for PPM/ICD tomorrow. Spoke with on-call infectious disease who felt that since blood cultures are negative, okay to proceed with PPM/ICD.
[2024-06-22] MEDS: MAGNESIUM SULFATE 50 IV (15:08)
[2024-06-22 18:02] LABS: Glucose - Point of Care 136 mg/dl (70-99)
--- NOTE | 2024-06-22 18:21 | PTCARENOTE ---
Pt HR post cath has remained 50-60's in A-fl. Pt denies pain.
[2024-06-22 19:16] LABS: Glucose - Point of Care 142 mg/dl (70-99)
[2024-06-22 22:16] LABS: Glucose - Point of Care 123 mg/dl (70-99)
[2024-06-23] VITALS (14 sets, daily range): BP systolic 86–145; BP diastolic 53–77; BMI 21.9
[2024-06-23 04:13] LABS: Hematocrit 25.5 % (39.0-52.0); Hemoglobin 8.2 g/dL (13.0-18.0); Mean Corp Hgb Conc. 32.2 g/dL (33.0-37.0); Mean Corpuscular Hgb 27.8 pg (27.0-31.0); Mean Corpuscular Volume 86.4 fL (80.0-94.0); Mean Platelet Volume 9.7 fL (7.4-10.4); Platelet Count 349 10^3/uL (130-400); Red Blood Cell Count 2.95 10^6/uL (4.70-6.10); Red Cell Dist. Width 18.1 % (11.5-14.5); White Blood Cell Count 10.6 10^3/uL (4.8-10.8)
[2024-06-23 04:40] LABS: Blood Urea Nitrogen 24 mg/dl (9-20); Calcium 8.8 mg/dl (8.4-10.2); Carbon Dioxide 26 mmol/L (22-30); Chloride 104 mmol/L (98-107); Estimated Creatinine Clearance 36 ml/min; Glucose 103 mg/dl (70-99); Sodium 138 mmol/L (135-145); eGFR 48.65
--- NOTE | 2024-06-23 05:39 | PTCARENOTE ---
Pt with 4.75 sec pause, asymptomatic. Denies pain or discomfort. OOB to commode with x1 assist, BLUNT.
[2024-06-23] MEDS: ANCEF 5 IV ×3 (06:22→23:47)
[2024-06-23 07:34] LABS: Glucose - Point of Care 136 mg/dl (70-99)
--- NOTE | 2024-06-23 07:35 | W.ICD.CONTRA ---
Post ICD/INFORMATION SYSTEMS DIRECTOR-D
-
History of [place]?: No
LV Function
Left ventricular function study result?: Ejection Fraction >/= 40%
ACEI/ARB/ARNI
Patient already on ACEI/ARB/ARNI: No
Beta-Yuriy
Patient already on Beta Yuriy: No
--- NOTE | 2024-06-23 09:34 | W.PN.CD ---
Today's Communication / Plan
-
- Dual chamber ICD today
- Resume Xarelto, start Metoprolol
- Will watch for the QTc and with pacing it QTc is improved, can resume Amiodarone again.
Impression / Plan
-
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
He was initially on IV amiodarone but developed bradycardia. He was switched to p.o. amiodarone 400 mg twice daily but bradycardia continued, so dose was reduced to 200 mg twice daily yesterday. This morning he had a 20 beat run of asymptomatic
polymorphic VT. 20 minutes later he developed acute shortness of breath with dynamic EKG changes. Troponin is 0.156 from 0.092 on 06/20.
Polymorphic VT, syncope:
-diagnosis is threat to life.
-With concern for ongoing myocardial ischemia, LHC was urgently done on 06/22/24
-No new CAD noted. Prior grafts and stents are patent.
-Amiodarone is on hold due to severe bradycardia
-s/p Lidocaine gtt. Now stopped.
-on Sub Q heparin - stop and resume Xarelto.
-With mono and polymorphic VT, in setting of wide QT and severe bradycardia, patient needs pacing to shorten the QTc and start Beta blockers.
-The rhythm is atrial flutter and was sinus in 2021. Has persistent AF history as well. Given frequency of VT and syncope, we have decided to place ICD for him. Plan is to add atrial line as well to for future atrial flutter ablation and atrial
pacing to shorten QT along with ICD lead with RV pacing until ablation can be done for him - anticipated in next 1-2 months.
- Will resume Amiodarone and add Metoprolol post implant.
- The elbow infection is in control now with WBC now normalized.
Abnormal troponin:
-denies CP. Initially peaked at 0.135. Now rising again with dynamic EKG changes
-Demand ischemia with anemia and AF/FL along with severe bradycardia.
-s/p transfusion
-LHC 06/22/24 - no new CAD noted. patent grafts and stent.
CAD with hx CABG and stenting:
-recent cath as below
-on ASA here- continue. Plavix held.
-Resume Xarelto after the implant.
-coronary eval as above
#Traumatic elbow wound with infection
-No need for OR per ortho. Patient on abx. Blood cx negative
-ID following
-Will make sure ID ok with ICD implant
Anemia, uhrpd-uo-umiazat:
-denies clinical bleeding
-Hgb is stable now.
-s/p 2 unit PRBC
-heparin stopped
-work-up per primary team
Atrial flutter, permanent:
-on Xarelto as OP, resume now. Hgb is stable.
-monitor rates with amio
HF recovered EF: chronic
-TTE 06/19/2024: LVEF 55-60%, moderate MS (17/7 mmHg), moderate (41/22 mmHg, BRANDI 1.0 cm�), mild TR, PASP 37 mmHg
-does not appear overloaded to assessment
-hold Lasix for YARA
YARA on CKD:
-nephro on the case
DATA:
1. Right dominant circulation with chronic total occlusion of the distal RCA, chronic total occlusion of the proximal circumflex and a 95% lesion in the mid LAD status post prior bypass (patent FORD to LAD, patent sequential SVG to RPDA to OM) with
a patent stent in the proximal third of the SVG.
2. Severely elevated filling pressures (LVEDP = 27 mmHg at 68.5 kg).
3. Probably moderate aortic valve stenosis (mean gradient 20 mmHg).
4. No ischemic nidus for VT.
Cardiac cath 03/16/24: Right dominant circulation with chronic total occlusion of the distal RCA, chronic total occlusion of the left circumflex, 60-70% tapering of the distal left main, a 90% proximal LAD lesion and chronic total occlusion of the
mid LAD status post prior bypass (patent FORD to LAD, patent sequential SVG to RPDA to OM) with patent stent in the proximal SVG. Severely elevated filling pressures (LVEDP = 25 mmHg, PCWP = 26 mmHg at 71.7 kg). Mild reduction in systolic function,
LVEF estimated at 45% with mild global hypokinesis. Mild aortic valve stenosis (mean gradient = 13.29 mmHg, estimated valve area = 1.8 cm�). 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
output = 5.01 L/min, PVR = 4.59 Singh units), likely WHO group 2 and group 5. Significant arterial hypertension while in the [employer]. In consultation with his daughter, it is revealed that this is likely due to anxiety as the patient's blood
pressures are typically 110/60 at home.
Subjective:
Feeling still tired and fatigued. appears exhausted. denies any chest pain.
Physical Exam
Vital Signs/Labs
Vital Signs
Temp Pulse Resp BP Pulse Ox
98.0 F 67 16 135/63 98
06/23/24 07:35 06/23/24 07:32 06/23/24 07:35 06/23/24 07:32 06/23/24 07:35
06/22/24 06/23/24 06/24/24
06:59 06:59 06:59
Actual Weight 68.748 kg 69.3 kg
06/23/24 03:44
06/23/24 03:44
PT 21.2 Sec (11.4-14.6) H 06/20/24 03:15
INR 1.78 06/20/24 03:15
APTT Cancelled 06/20/24 15:00
Magnesium 2.4 mg/dl (1.6-2.3) H 06/21/24 06:51
Free T4 1.34 ng/dl (0.78-2.19) 06/19/24 02:56
06/18/24
22:50
Mge-A-Ghtxzgakqkt Pept 4970
LAB Results
06/22/24
11:34
Troponin I 0.156 H*
Physical Exam
Constitutional: No acute distress and Comfortable
EENT: Anicteric and Moist mucous membranes
Cardiovascular: Pedal edema is absent, Rhythm/rate is irregular, JVD present and Systolic murmur present
Respiratory: Respiratory effort normal and Wheeze Absent
GI: Soft, Distention absent, Non tender and Normal bowel sounds
Neuro/Psych: Alert, Oriented and AO x 3
Data Reviewed
-
Date of Service: June 23, 2024
Medical Decision Making: Reviewed Test Results, Test Interpretation and Review of Case with other Provider
EKG: Tracing Personally Visualized and interpreted
Echo: Report Reviewed by me
Medical Tests (PFT, Pathology etc): Discussed with Physician, Discussed with Nurse and Discussed with Patient
Labs: Labs Reviewed by me
Old Records: Reviewed
[2024-06-23] MEDS: NOVOLOG FLEXPEN-LOW RESISTANCE SC ×2 (09:35→12:04)
--- NOTE | 2024-06-23 09:51 | ITS.CL.ICD ---
Gate Operator - ICD
Implantable Cardioverter Defibrillator
Procedure Report:
Dual Chamber Implantable Cardioverter Defibrillator Placement:
Mr. Nickerson is a very pleasant 88 years old gentleman with diastolic heart failure, with NYHA class III, CAD s/p CABG and PCI presented with syncope and frequent sustained VT that has component of monomorphic and polymorphic. He is also noted to
have severely prolonged QTc and severe bradycardia limiting use of beta blockers. He is in atrial flutter and plan is to proceed with atrial flutter ablation and need for atrial pacing and atrial lead is needed. He is recommended a dual chamber ICD
placement.
Indications: ventricular arrhythmia and severe bradycardia.
Date of the Procedure: 06/23/2024
Pre-Operative Diagnosis: ventricular arrhythmia.
Post-Operative Diagnosis: ventricular arrhythmia.
Procedure Performed: DUAL CHAMBER IMPLANTABLE CARDIOVERTER DEFIBRILLATOR IMPLANTATION
Performing Physician:
Pierre Miller MD
Assistants:
EP staff
Anesthesia:
See anesthesia records
Detailed Description of the Procedure:
The patient was identified using hospital identification and informed consent obtained for the procedure. The risks were explained including, but not limited to: Bleeding, infection, arrhythmia, stroke, vascular/cardiac/lung puncture, surgery,
pacemaker dependency/device malfunction. All questions were answered.
The patient was brought to the electrophysiology laboratory in stable condition in fasting state. Continuous electrocardiographic and hemodynamic monitoring was initiated. The initial rhythm was atrial flutter.
The procedure site was meticulously prepared with surgical scrub and allowed to dry with no pooling. Sterile draping was applied to cover the procedure site. The image intensifier was draped with sterile bag and positioned over the patient.
The left infraclavicular region was prepped and draped in the usual sterile fashion. Local anesthesia was administered subcutaneously using 1% lidocaine / epinephrine. The left cephalic vein was searched but no vein was identified.
The axillary vein was accessed using the fluoroscopic guidance using the micro-puncture apparatus and vascular sheath was introduced over the guidewire for lead access. The guide wire was advanced into the inferior vena cava. The wire was retained
and two guide wires were placed in subclavian vein. Using the sheaths, atrial and ventricular leads were placed. These were advanced into the right ventricle and the right atrium.
The right ventricular lead was secured in position with an active fixation technique at the apical location. The RA lead was attached in the right atrial appendage with active fixation. There was excellent sensing, pacing, and impedance from the
leads, with no diaphragmatic stimulation at 10 V output.�Bovie cautery, antibiotics, and fluoroscopy were used.
The sheath was withdrawn, and the thresholds remained acceptable. A pursestring suture was placed at the entry point of the leads using 2-0 Vicryl sutures. The leads were secured in position at the venous entry site with 2-0 Ethibond sutures. A
pocket was fashioned contiguous to the incision. The electrode terminals were connected to the pulse generator, which was placed into the pocket. The wound was irrigated thoroughly with antibiotic solution and closed in 3 layers using 2-0
VLocsutures followed by 2 layers of 4-0 V-loc sutures. Steri-Strips and a bandage were applied externally.�
Procedure End:
The procedure was tolerated well. A bandage was applied to the incision area. Pressure dressing was applied.
Estimated Blood loss:
5 cc
Fluoro time:
3.1min / 7.92mGy
Specimens Removed:
No cultures and no specimens were obtained. No intraoperative pathology was identified.
Urine output:
None
Packs / Drains/ Tubes:
None
Instrument / Sponge Count Correct:
Yes
Complications of the Procedure:
None
Condition of Patient at Time of Transfer:
Hemodynamically stable with no neurological or vascular compromise.
Device information:�
Generator: [employer]; Model: [id number]; Serial # [id number]
Atrial Lead: [employer]; Model: 5076-52; Serial # [id number]
Measured data in the right atrium was sensing of 1.0 mV AFL waves (264 ms CL), impedance of 437 ohms and threshold not tested due to atrial flutter but was below 1.5V at 0.4 ms.
Burst pacing form the RA lead was done multiple times but not able to break the flutter. �
RV Lead: [employer]i.setronic; Model: 6935M-62; Serial # [id number]
Measured data in the RV lead was sensing of 20 mV, impedance of 665ohms and threshold of 0.75 V at 0.4ms�
PROGRAMMING PARAMETERS:�
Stanislav parameter settings were DDDR 70-130 bpm. �
����������� Mode switch: On
����������� Paced AV delay: 130 ms
����������� Sensed AV delay: 100 ms
����������� Rate Adaptive A-V Interval: ON
����������� Mode switched to VVIR now.
Output parameters:
����������������������� Amplitude (V)������������� Pulse Width (ms)������� Sensitivity (mV)
����������� RA: ����� 3.5 ����������������� 0.4������������������ 0.3
����������� RV:������ 3.5������������������ 0.4������������������ 0.3
Tachy parameter settings:
����������� SVT discrimination: On
����������� AF/AFl: OFF
����������� SVT limit: 260 msec
����������� VT zone:
����������������������� Slow VT: 150-188 bpm --> Monitor
����������������������� Fast VT/VF: > 188 bpm --> Shock x6 (ATP before and during)
�����������
Summary:
Successful implantation of MRI compatible dual chamber Med[employer] implantable Cardioverter Defibrillator.�
Results/Recommendations:
-Please follow up CXR�
1. Please provide patient with adequate pain control�
Instructions to be given to patient:�
- Please follow up with [facility] at [address] [place] [address] ([phone]) to get your wound checked within 14 days of your discharge.
- Do not soak incision site until after it is evaluated at cardiology clinic. OK to showers followed by dab dry the area. No baths or swimming until then. Sponge baths are OK.�
- Allow 'steri strips' to fall off on their own�
- Do not lift left elbow above shoulder, particularly with sudden jerking movements, for 1 month�
- Do not lift anything weighing more than 5 pounds with the left arm for 1 month�
- If you notice any fevers, shortness of breath, lightheadedness, chest pain, or worsening swelling in the wound site, please contact the arrhythmia clinic, contact your manager management, or present to the hospital for evaluation.�
Pierre Miller MD
Electrophysiology
--- NOTE | 2024-06-23 10:46 | W.PN.ID1 ---
Date of Service
Date of Service: June 23, 2024
Today's Communication
Continue cefazolin (d4)
At time of discharge, transition to cephalexin 500mg po q8h through 07/03/24
Assessment / Plan
# Right elbow traumatic wound with cellulitis improving
-hx right forearm fracture ORIF with subcutaneous bone stimulator device/wires placed
- Wound swab cx; skin alexander
- Continue cefazolin (d4)
- At time of discharge, transition to cephalexin 500mg po q8h through 07/03/24
- Follow-up with ortho regarding bone stimulator
# Recent V-tach
- s/p ICD placement 06/23
# Conditions prior to admission
Paroxysmal atrial fibrillation
CAD status post CABG, stent
Ischemic cardiomyopathy
Moderate aortic stenosis
History of paraesophageal hernia/gastric volvulus s/prepair
Gastric ulcer
BPH
Depression
Right forearm ORIF with bone stimulator
Cholecystectomy
Bilateral total knee replacement
Chief Complaint
-: Cellulitis
Subjective / Review of Systems
No complaints today. Daughter at bedside.
Vital Signs / Physical Exam
Vital Signs
Vital Signs
Temp Pulse Resp BP Pulse Ox
98.0 F 67 16 135/63 98
06/23/24 07:35 06/23/24 07:32 06/23/24 07:35 06/23/24 07:32 06/23/24 07:35
Physical Exam
Constitutional: No Acute Distress and Comfortable
Cardiovascular: Regular Rate and Other (left chest wall dressing dry.)
Pulmonary: Clear (anteriorly)
Gastrointestinal: Soft, Non Tender and Non Distended
Genito-Urinary: Negative CVA Tenderness
Wound: Other (Right UE/elbow with decrease edema/erythema/warmth; elbow small wound with granulation tissue, no drainage.)
Neurological: AO x 3
Objective Data
Lab Data
Lab Results
06/23/24 03:44
06/23/24 03:44
PT 21.2 Sec (11.4-14.6) H 06/20/24 03:15
INR 1.78 06/20/24 03:15
APTT Cancelled 06/20/24 15:00
Estimated Creat Clear 36 ml/min 06/23/24 03:44
Lactic Acid 1.4 mmol/L (0.7-2.0) 06/19/24 09:24
Total Bilirubin 2.3 mg/dl (0.2-1.3) H 06/18/24 22:50
AST 27 U/L (17-59) 06/18/24 22:50
ALT 17 U/L (0-50) 06/18/24 22:50
Alkaline Phosphatase 159 U/L (38-126) H 06/18/24 22:50
Most recent labs reviewed.
Micro Results:
06/20/24 16:36 Blood Culture - Preliminary
Blood/Venous No Growth in 48 hours- Final report to follow
06/20/24 16:29 Blood Culture - Preliminary
Blood/Venous No Growth in 48 hours- Final report to follow
06/20/24 15:35 Wound Culture - Final
Elbow - Right Gram Stain - Final
06/20/24 CT UE: Severe extensive subcutaneous edema throughout the posterior aspect of the right upper arm, elbow, and forearm. 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 1.3 cm chronic avulsion fracture of the lateral epicondyle. Previous ORIF of a
right mid ulnar diaphyseal fracture with a compression plate and screws in place. Stimulator device and wires in the soft tissues of the right forearm adjacent to the treated fracture.
06/19/24 CXR: Small left pleural effusion. Mild patchy parenchymal opacity in the left lower lung, likely atelectasis.
--- NOTE | 2024-06-23 11:12 | W.PN.NEPH.PH ---
Today's Communication / Plan
-
lasix
Assessment/Plan
-
Assessment
Bradycardia
Atrial flutter
ASCVD
YARA
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
Acute anemia
Plan
follow BMP
lasix today
no spironolactone for now
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
Recent urinalyses as well as rising creatinine would suggest some sort of tubulointerstitial or ischemic process
-
-
Date of Service: June 23, 2024
CC / HPI / ROS
-
Chief Complaint:
Acute kidney injury
History of Present Illness:
Creatinine improving to 1.4
Hemodynamically stable
Remains on amiodarone for atrial fibrillation
K stable
Hgb 8.2
V tach with syncope now on po amiodarone
Review of Systems:
Grossly nonoliguric
No chest pain or shortness of breath but on O2 nc
Labs
-
Labs:
WBC 10.6 10^3/uL (4.8-10.8) 06/23/24 03:44
RBC 2.95 10^6/uL (4.70-6.10) L 06/23/24 03:44
Hgb 8.2 g/dL (13.0-18.0) L 06/23/24 03:44
Hct 25.5 % (39.0-52.0) L 06/23/24 03:44
Plt Count 349 10^3/uL (130-400) 06/23/24 03:44
Sodium 138 mmol/L (135-145) 06/23/24 03:44
Potassium 5.0 mmol/L (3.5-5.1) 06/23/24 03:44
Chloride 104 mmol/L (98-107) 06/23/24 03:44
Carbon Dioxide 26 mmol/L (22-30) 06/23/24 03:44
BUN 24 mg/dl (9-20) H 06/23/24 03:44
Creatinine 1.4 mg/dL (0.7-1.3) H 06/23/24 03:44
eGFR 48.65 06/23/24 03:44
Glucose 103 mg/dl (70-99) H 06/23/24 03:44
Calcium 8.8 mg/dl (8.4-10.2) 06/23/24 03:44
Phosphorus 3.8 mg/dl (2.5-4.5) 06/21/24 06:51
Ohd-I-Ivloemvptem Pept 4970 pg/ml 06/18/24 22:50
Albumin 4.9 g/dl (3.5-5.0) 06/18/24 22:50
Physical Exam
-
Vital Signs:
Vital Signs
Temp Pulse Resp BP Pulse Ox
98.0 F 67 16 135/63 98
06/23/24 07:35 06/23/24 07:32 06/23/24 07:35 06/23/24 07:32 06/23/24 07:35
Cardiovascular:: Regular rate and rhythm
Respiratory:: Bilateral: Coarse
Lung Excursion:: Normal
Abdomen:: Nontender and Soft
Bowel Sounds:: Normal
Extremity Edema:: +1: Bilateral:
[2024-06-23] MEDS: TOPROL XL 50 MG PO (12:02)
[2024-06-23] MEDS: CYMBALTA DELAYED RELEASE 30 MG PO (12:02)
[2024-06-23 12:03] LABS: Glucose - Point of Care 121 mg/dl (70-99)
[2024-06-23] MEDS: PROTONIX IV 40 MG IV ×2 (12:03→20:17)
[2024-06-23] MEDS: LOW STRENGTH ASPIRIN 81 MG PO (12:03)
[2024-06-23] MEDS: NSS (PRESERVATIVE FREE) 10 ML IV ×2 (12:04→20:17)
[2024-06-23] MEDS: HEPARIN SC (12:05)
--- NOTE | 2024-06-23 13:08 | W.PN.HOSP.TC ---
Today's Communication/Plan
-
s/p ICD
resume Xarelto
IV abx with transition to orals at dc
PT/OT
Assessment / Plan
Assessment / Plan
Assessment:
V-tach with syncope
Underlying history of permanent A. Flutter per Cardiology
- life-threatening diagnosis
- s/p IV Amiodarone and Lidocaine
- continues on oral amiodarone
- s/p ICD/pacer implant / with EP
- Echo: 06/19/2024: LVEF 55-60%, moderate MS (17/7 mmHg), moderate (41/22 mmHg, BRANDI 1.0 cm�), mild TR, PASP 37 mmHg
- CBC cards following
non-ischemic myocardial injury in setting of YARA, anemia, arrhythmia
Hx of CAD with hx of CABG
- trop .135 peak
- continue ASA
- resume Xarelto when ok with EP
- s/p cath 06/23 with stable coronaries
Acute on Chronic Normocytic Anemia
GERD/PUD
- Had gastric ulcer on EGD last admission (12/2023)
- s/p 2 unit PRBCs. Hb 8.2 most recently
- heme test stools - last BM reported normal brown appearance
Chronic HFmEF (per Cardiology)
- Complains of SOB - but seems likely reflection of arrhythmia and not volume overload.
- PO lasix per Cards/Renal
- Follow I/Os, daily weights, etc.
- Update Echo as noted above.
YARA on CKD III
Anion Gap Metabolic Acidosis
- SCr = 2.4 compared to prior baseline of 1.5. Currently 1.4
- AG on admission = 18.
- Likely due to decreased perfusion/arrhythmia.
- mild lactic acidosis resolved
- follow BMP
- follow urine studies
- Nephrology following
Right Elbow Pain
- Patient with bone stimulator in place R elbow (old).
- X-ray: On the lateral view, small focus of air projecting dorsal to the proximal ulna, suggesting a small amount of air within the soft tissues. Please correlate with any recent intervention in this region that might introduce air. Air forming
infection would be a differential consideration.
- CT: Severe extensive subcutaneous edema throughout the posterior aspect of the right upper arm, elbow, and forearm
- ID following
- continue Ancef. At time of discharge, transition to cephalexin 500mg po q8h through 07/03/24. Wound swab with typical alexander.
- Orthopedics consulted; no surgical intervention planned. Plan for OP f.u.
Headache
- Patient had similar posterior headache on prior admission - ultimately due to worsened anemia.
- Treat anemia/transfusion as noted above.
- Change Plavix back to ASA as symptoms seemed to begin with this change.
- Patient is awake and alert (between arrhythmia episodes) and has no focal findings on exam.
- trial Tylenol prn
- CT head negative
BPH
- Stable. bladder scan protocol.
Elevated TSH
- normal T4
- repeat TFT in 6 weeks
Hyperkalemia
- monitor
DVT Prophylaxis: Xarelto
Code Status: Full
Anticipated Discharge: Within 24 hours
Subjective/Interval History
-
Date of Service: June 23, 2024
resting comfortably, no complaints
s/p ICD
Objective Data
-
Labs:
Laboratory Results
06/23/24
03:44
WBC 10.6
Hgb 8.2 L
Hct 25.5 L
Plt Count 349
Sodium 138
Potassium 5.0
Chloride 104
Carbon Dioxide 26
BUN 24 H
Creatinine 1.4 H
Glucose 103 H
Calcium 8.8
Vital Signs:
Vital Signs
Temp Pulse Resp BP Pulse Ox
98.0 F 70 16 117/67 98
06/23/24 07:35 06/23/24 12:02 06/23/24 07:35 06/23/24 12:02 06/23/24 07:35
I&O
06/22/24 06/23/24 06/24/24
06:59 06:59 06:59
Intake Total 1720 / 1720 560 / 560
Output Total 1025 / 1025 1430 / 1430 100 / 100
Balance 695 / 695 -870 / -870 -100 / -100
Physical Exam
-
General: No Apparent Distress
HEENT: Normocephalic and Atraumatic
Respiratory: Negative Wheezes
Cardiac: Regular Rhythm and S1/S2
GI: Soft and Nontender
Musculoskeletal: No Edema
Neuro: AO x 3
Hematologic / Lymphatic: No Lymphadenopathy
Psych: Calm
Data Reviewed
-
Total Time Spent with Patient (in minutes): 41
Labs: Labs Reviewed by me
[2024-06-23] MEDS: LASIX 40 MG PO (13:57)
--- NOTE | 2024-06-23 14:02 | PTCARENOTE ---
Received pt post dual chamber AICD. Pt AAO x3, VSS. Left ACW w/ pressure dressing intact. Pt V paced on security monitor. Pt denies chest discomfort. Will monitor.
[2024-06-23 17:08] LABS: Glucose - Point of Care 157 mg/dl (70-99)
[2024-06-23] MEDS: NOVOLOG FLEXPEN-LOW RESISTANCE 1 UNITS SC (17:18)
[2024-06-23] MEDS: PACERONE 200 MG PO (20:17)
[2024-06-23 22:09] LABS: Glucose - Point of Care 114 mg/dl (70-99)
[2024-06-23] MEDS: TYLENOL 650 MG PO (23:47)
[2024-06-24] VITALS (9 sets, daily range): BP systolic 78–141; BP diastolic 46–83; PULSE 70–71; BMI 21.9
--- NOTE | 2024-06-24 00:18 | PTCARENOTE ---
Pt rec'd at beginning of shift sitting in recliner chair. Left ant chest with ICD noted under a pressure drsg. no active bleeding or hematoma noted. left radial site from cath with DDI, good radial pulse. 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 Right elbow with some
swelling that pt stated was doing well. Pt reports slight pain at ICD site asked to take Tylenol at HS with abx. Pt assisted to bathroom to void. + flatus with no bm. Gait slightly unsteady with walker.
In bed at present with call riley within reach.
[2024-06-24 06:34] LABS: Hematocrit 26.4 % (39.0-52.0); Mean Corp Hgb Conc. 30.3 g/dL (33.0-37.0); Mean Corpuscular Hgb 26.3 pg (27.0-31.0); Mean Corpuscular Volume 86.8 fL (80.0-94.0); Mean Platelet Volume 9.9 fL (7.4-10.4); Platelet Count 318 10^3/uL (130-400); Red Blood Cell Count 3.04 10^6/uL (4.70-6.10); Red Cell Dist. Width 18.1 % (11.5-14.5); White Blood Cell Count 10.2 10^3/uL (4.8-10.8)
[2024-06-24 07:00] LABS: Blood Urea Nitrogen 26 mg/dl (9-20); Calcium 8.7 mg/dl (8.4-10.2); Carbon Dioxide 28 mmol/L (22-30); Chloride 103 mmol/L (98-107); Estimated Creatinine Clearance 36 ml/min; Glucose 105 mg/dl (70-99); Magnesium 2.2 mg/dl (1.6-2.3); Potassium 4.7 mmol/L (3.5-5.1); Sodium 138 mmol/L (135-145); eGFR 48.65
[2024-06-24] MEDS: TOPROL XL 50 MG PO (08:07)
[2024-06-24] MEDS: CYMBALTA DELAYED RELEASE 30 MG PO (08:07)
[2024-06-24] MEDS: PACERONE 200 MG PO (08:07)
[2024-06-24] MEDS: LOW STRENGTH ASPIRIN 81 MG PO (08:07)
--- NOTE | 2024-06-24 08:07 | W.PN.CD ---
Addendum entered and electronically signed by Pierre Miller MD 06/24/24 09:57:
Lasix dose adjusted
- Discharge home dose 40 mg QD
Original Note:
Today's Communication / Plan
-
- Discontinue Amiodarone at discharge
- Increase Metoprolol to 100 mg QD
- Continue Xarelto and ASA
- Antibiotics as per primary team - probably keflex for 5 more days.
- Stable for discharge from cardiac [facility].
Impression / Plan
-
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
He was initially on IV amiodarone but developed bradycardia. He was switched to p.o. amiodarone 400 mg twice daily but bradycardia continued, so dose was reduced to 200 mg twice daily yesterday. This morning he had a 20 beat run of asymptomatic
polymorphic VT. 20 minutes later he developed acute shortness of breath with dynamic EKG changes. Troponin is 0.156 from 0.092 on 06/20.
Polymorphic VT, syncope:
-diagnosis is threat to life.
-With concern for ongoing myocardial ischemia, LHC was urgently done on 06/22/24
-No new CAD noted. Prior grafts and stents are patent.
-Amiodarone is on hold due to severe bradycardia
-s/p Lidocaine gtt. Now stopped.
-s/p dual chamber ICD on 06/23/24
Abnormal troponin:
-denies CP. Initially peaked at 0.135. Now rising again with dynamic EKG changes
-Demand ischemia with anemia and AF/FL along with severe bradycardia.
-s/p transfusion
-LHC 06/22/24 - no new CAD noted. patent grafts and stent.
CAD with hx CABG and stenting:
-recent cath as below
-on ASA here- continue. Plavix held.
-Resume Xarelto after the implant.
-coronary eval as above
#Traumatic elbow wound with infection
-No need for OR per ortho. Patient on abx. Blood cx negative
-ID following
-Will make sure ID ok with ICD implant
Anemia, pfdyi-in-bhwdhjy:
-denies clinical bleeding
-Hgb is stable now.
-s/p 2 unit PRBC
-heparin stopped
-work-up per primary team
Atrial flutter, permanent:
-on Xarelto as OP, resume now. Hgb is stable.
-Plan for ablation in 1-2 months.
HF recovered EF: chronic
-TTE 06/19/2024: LVEF 55-60%, moderate MS (17/7 mmHg), moderate (41/22 mmHg, BRANDI 1.0 cm�), mild TR, PASP 37 mmHg
-does not appear overloaded to assessment
-resume home lasix.
YARA on CKD:
-nephro on the case
DATA:
1. Right dominant circulation with chronic total occlusion of the distal RCA, chronic total occlusion of the proximal circumflex and a 95% lesion in the mid LAD status post prior bypass (patent FORD to LAD, patent sequential SVG to RPDA to OM) with
a patent stent in the proximal third of the SVG.
2. Severely elevated filling pressures (LVEDP = 27 mmHg at 68.5 kg).
3. Probably moderate aortic valve stenosis (mean gradient 20 mmHg).
4. No ischemic nidus for VT.
Cardiac cath 03/16/24: Right dominant circulation with chronic total occlusion of the distal RCA, chronic total occlusion of the left circumflex, 60-70% tapering of the distal left main, a 90% proximal LAD lesion and chronic total occlusion of the
mid LAD status post prior bypass (patent FORD to LAD, patent sequential SVG to RPDA to OM) with patent stent in the proximal SVG. Severely elevated filling pressures (LVEDP = 25 mmHg, PCWP = 26 mmHg at 71.7 kg). Mild reduction in systolic function,
LVEF estimated at 45% with mild global hypokinesis. Mild aortic valve stenosis (mean gradient = 13.29 mmHg, estimated valve area = 1.8 cm�). 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
output = 5.01 L/min, PVR = 4.59 Singh units), likely WHO group 2 and group 5. Significant arterial hypertension while in the [employer]. In consultation with his daughter, it is revealed that this is likely due to anxiety as the patient's blood
pressures are typically 110/60 at home.
Subjective:
Feeling still tired and fatigued. appears exhausted. denies any chest pain.
Physical Exam
Vital Signs/Labs
Vital Signs
Temp Pulse Resp BP Pulse Ox
98.3 F 70 20 141/70 94
06/23/24 23:44 06/24/24 06:00 06/23/24 23:44 06/24/24 05:08 06/23/24 23:44
06/23/24 06/24/24 06/25/24
06:59 06:59 06:59
Actual Weight 69.3 kg
06/24/24 05:30
06/24/24 05:30
PT 21.2 Sec (11.4-14.6) H 06/20/24 03:15
INR 1.78 06/20/24 03:15
APTT Cancelled 06/20/24 15:00
Magnesium 2.2 mg/dl (1.6-2.3) 06/24/24 05:30
Free T4 1.34 ng/dl (0.78-2.19) 06/19/24 02:56
06/18/24
22:50
Rce-M-Eafnpvumkgr Pept 4970
LAB Results
06/22/24
11:34
Troponin I 0.156 H*
Physical Exam
Constitutional: No acute distress and Comfortable
EENT: Anicteric and Moist mucous membranes
Cardiovascular: Rhythm & rate is regular, Pedal edema is absent, JVD pressure is normal and Systolic murmur absent
Respiratory: Respiratory effort normal, Lungs clear to auscul. and Wheeze Absent
GI: Soft, Distention absent, Non tender and Normal bowel sounds
Neuro/Psych: Alert, Oriented and AO x 3
Other: Cardiac Device Site
Data Reviewed
-
Date of Service: June 24, 2024
Medical Decision Making: Reviewed Test Results, Test Interpretation and Review of Case with other Provider
EKG: Tracing Personally Visualized and interpreted
Echo: Report Reviewed by me
Labs: Labs Reviewed by me
Old Records: Reviewed
[2024-06-24] MEDS: NSS (PRESERVATIVE FREE) 10 ML IV (08:08)
[2024-06-24] MEDS: FLUSH (NSS) 1 FLUSH IV (08:08)
[2024-06-24] MEDS: PROTONIX IV 40 MG IV (08:08)
[2024-06-24] MEDS: ANCEF 5 IV (08:08)
[2024-06-24 08:31] LABS: Glucose - Point of Care 120 mg/dl (70-99)
[2024-06-24] MEDS: NOVOLOG FLEXPEN-LOW RESISTANCE SC ×2 (08:55→12:58)
--- NOTE | 2024-06-24 09:04 | W.PN.ID1 ---
Date of Service
Date of Service: June 24, 2024
Today's Communication
At time of discharge, transition to cephalexin 500mg po q8h through 07/03/24
Assessment / Plan
# Right elbow traumatic wound with cellulitis continues to improve.
-hx right forearm fracture ORIF with subcutaneous bone stimulator device/wires placed
- Wound swab cx; skin alexander
- Continue cefazolin (d5)
- At time of discharge, transition to cephalexin 500mg po q8h through 07/03/24
- Follow-up with ortho regarding bone stimulator
# Recent V-tach
- s/p ICD placement 06/23
# Conditions prior to admission
Paroxysmal atrial fibrillation
CAD status post CABG, stent
Ischemic cardiomyopathy
Moderate aortic stenosis
History of paraesophageal hernia/gastric volvulus s/prepair
Gastric ulcer
BPH
Depression
Right forearm ORIF with bone stimulator
Cholecystectomy
Bilateral total knee replacement
Chief Complaint
-: Cellulitis
Subjective / Review of Systems
Continues to feel well.
Vital Signs / Physical Exam
Vital Signs
Vital Signs
Temp Pulse Resp BP Pulse Ox
97.9 F 70 18 141/70 97
06/24/24 08:24 06/24/24 06:00 06/24/24 08:24 06/24/24 05:08 06/24/24 08:24
Physical Exam
Constitutional: No Acute Distress and Comfortable
Cardiovascular: Regular Rate and Other (left chest wall dressing dry.)
Pulmonary: Clear (anteriorly)
Gastrointestinal: Soft, Non Tender and Non Distended
Genito-Urinary: Negative CVA Tenderness
Wound: Other (Right UE/elbow decreasing edema/erythema/warmth; elbow small wound with granulation tissue, no drainage.)
Neurological: AO x 3
Objective Data
Lab Data
Lab Results
06/24/24 05:30
06/24/24 05:30
PT 21.2 Sec (11.4-14.6) H 06/20/24 03:15
INR 1.78 06/20/24 03:15
APTT Cancelled 06/20/24 15:00
Estimated Creat Clear 36 ml/min 06/24/24 05:30
Lactic Acid 1.4 mmol/L (0.7-2.0) 06/19/24 09:24
Total Bilirubin 2.3 mg/dl (0.2-1.3) H 06/18/24 22:50
AST 27 U/L (17-59) 06/18/24 22:50
ALT 17 U/L (0-50) 06/18/24 22:50
Alkaline Phosphatase 159 U/L (38-126) H 06/18/24 22:50
Most recent labs reviewed.
Micro Results:
06/20/24 16:29 Blood Culture - Preliminary
Blood/Venous No Growth in 72 hours- Final report to follow
06/20/24 16:36 Blood Culture - Preliminary
Blood/Venous No Growth in 72 hours- Final report to follow
06/20/24 15:35 Wound Culture - Final
Elbow - Right Gram Stain - Final
06/20/24 CT UE: Severe extensive subcutaneous edema throughout the posterior aspect of the right upper arm, elbow, and forearm. 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 1.3 cm chronic avulsion fracture of the lateral epicondyle. Previous ORIF of a
right mid ulnar diaphyseal fracture with a compression plate and screws in place. Stimulator device and wires in the soft tissues of the right forearm adjacent to the treated fracture.
06/19/24 CXR: Small left pleural effusion. Mild patchy parenchymal opacity in the left lower lung, likely atelectasis.
Care Review
Plan reviewed with: Physician (Dr. Karlene Waite)
--- NOTE | 2024-06-24 09:51 | W.PN.HOSP.TC ---
Today's Communication/Plan
-
dc home/VN
Assessment / Plan
Assessment / Plan
Assessment:
V-tach with syncope
Underlying history of permanent A. Flutter per Cardiology
- life-threatening diagnosis
- s/p IV Amiodarone and Lidocaine
- continues on oral amiodarone
- s/p ICD/pacer implant 06/23 with EP
- Echo: 06/19/2024: LVEF 55-60%, moderate MS (17/7 mmHg), moderate (41/22 mmHg, BRANDI 1.0 cm�), mild TR, PASP 37 mmHg
- CBC cards following
non-ischemic myocardial injury in setting of YARA, anemia, arrhythmia
Hx of CAD with hx of CABG
- trop .135 peak
- continue ASA/Xarelto
- s/p cath 06/23 with stable coronaries
Acute on Chronic Normocytic Anemia
GERD/PUD
- Had gastric ulcer on EGD last admission (12/2023)
- s/p 2 unit PRBCs. Hb 8.0 most recently
- heme test stools - last BM reported normal brown appearance
Chronic HFmEF (per Cardiology)
- Complains of SOB - but seems likely reflection of arrhythmia and not volume overload.
- dc on Lasix 40mg daily
- Follow I/Os, daily weights, etc.
- Update Echo as noted above.
YARA on CKD III
Anion Gap Metabolic Acidosis
- SCr = 2.4 compared to prior baseline of 1.5. Currently 1.4
- AG on admission = 18.
- Likely due to decreased perfusion/arrhythmia.
- mild lactic acidosis resolved
- follow BMP
- follow urine studies
- Nephrology following
Right Elbow Pain
- Patient with bone stimulator in place R elbow (old).
- X-ray: On the lateral view, small focus of air projecting dorsal to the proximal ulna, suggesting a small amount of air within the soft tissues. Please correlate with any recent intervention in this region that might introduce air. Air forming
infection would be a differential consideration.
- CT: Severe extensive subcutaneous edema throughout the posterior aspect of the right upper arm, elbow, and forearm
- ID following
- continue Ancef. At time of discharge, transition to cephalexin 500mg po q8h through 07/03/24. Wound swab with typical alexander.
- Orthopedics consulted; no surgical intervention planned. Plan for OP f.u.
Headache
- Patient had similar posterior headache on prior admission - ultimately due to worsened anemia.
- Treat anemia/transfusion as noted above.
- Change Plavix back to ASA as symptoms seemed to begin with this change.
- Patient is awake and alert (between arrhythmia episodes) and has no focal findings on exam.
- trial Tylenol prn
- CT head negative
BPH
- Stable. bladder scan protocol.
Elevated TSH
- normal T4
- repeat TFT in 6 weeks
Hyperkalemia
- monitor
DVT Prophylaxis: Xarelto
Code Status: Full
More than 30 minutes spent in discharge including
Final examination of the patient
Summarizing hospital stay
Instructions for continuing care to all relevant caregivers
Preparation of discharge records, prescriptions, and referral forms
Total time spent (in minutes): 41
Anticipated Discharge: Today
Subjective/Interval History
-
Date of Service: June 24, 2024
no complaints at present
Objective Data
-
Labs:
Laboratory Results
06/24/24
05:30
WBC 10.2
Hgb 8.0 L
Hct 26.4 L
Plt Count 318
Sodium 138
Potassium 4.7
Chloride 103
Carbon Dioxide 28
BUN 26 H
Creatinine 1.4 H
Glucose 105 H
Calcium 8.7
Vital Signs:
Vital Signs
Temp Pulse Resp BP Pulse Ox
97.9 F 70 18 79/46 77
06/24/24 08:24 06/24/24 09:42 06/24/24 08:24 06/24/24 09:43 06/24/24 08:24
I&O
06/23/24 06/24/24 06/25/24
06:59 06:59 06:59
Intake Total 560 / 560 845 / 845
Output Total 1430 / 1430 1800 / 1800
Balance -870 / -870 -955 / -955
Physical Exam
-
General: No Apparent Distress
HEENT: Normocephalic and Atraumatic
Respiratory: Negative Wheezes
Cardiac: Regular Rhythm and S1/S2
GI: Soft and Nontender
Genito-urinary: No Costovertebral Tender
Neuro: AO x 3
Hematologic / Lymphatic: No Lymphadenopathy
Psych: Calm
Data Reviewed
-
Total Time Spent with Patient (in minutes): 41
Labs: Labs Reviewed by me
--- NOTE | 2024-06-24 10:24 | W.DS.TRANS ---
DC Summary - [facility]
-
Discharge Instructions:
Discharge Diagnosis/Procedures Vtach s/p Cardiac catheterization (06/22) and ICD
implant (06/23)
R elbow cellulitis
Diet Low Cholesterol
Driving Restrictions No driving for 1 week
Bathing Restrictions OK to Shower
Blood Work repeat labs in 1 week - slip given
Other Services VN
Instructions:
Stand-Alone Forms: DC Instructions- Cath/EP Lab
DC Inst - Implanted Device
Changes to Home Medications: Yes
Discharge Medications:
DC Medications w/original date entered in [employer]
finasteride 5 mg tablet 5 mg PO HS Urinary issue 03/05/20
cyanocobalamin (vitamin B-12) 1,000 mcg tablet 1,000 mcg PO DAILY Supplement 01/25/21
atorvastatin 40 mg tablet 40 mg PO HS High Cholesterol 12/19/22
cetirizine 10 mg tablet (Zyrtec) 10 mg PO HS Allergies 12/31/23
magnesium oxide 500 mg PO DAILY Supplement 12/31/23
zinc sulfate 50 mg zinc (220 mg) tablet 50 mg PO DAILY Supplement 12/31/23
pantoprazole 40 mg tablet,delayed release 40 mg PO DAILY Gastrointestinal Issue 02/28/24
Probiotic 100 mg PO DAILY Gastrointestinal Issue 06/18/24
ascorbic acid (vitamin C) 1,000 mg tablet 1,000 mg PO DAILY Supplement 06/18/24
duloxetine 30 mg capsule,delayed release 30 mg PO DAILY Mental Health/Anxiety 06/18/24
rivaroxaban 15 mg tablet 15 mg PO QPM Blood Clot Prevention/Tx 06/18/24
aspirin 81 mg chewable tablet 81 mg PO DAILY #100 tabs 06/24/24
cephalexin 500 mg capsule 500 mg PO Q8H #30 caps 06/24/24
furosemide 40 mg tablet (Lasix) 40 mg PO DAILY #30 tabs 06/24/24
metoprolol succinate 50 mg tablet,extended release 24 hr 50 mg PO DAILY #30 tabs 06/24/24
Home Medication Changes
Lasix daily
Aldactone stopped
amiodarone stopped/BB started
Plavix stopped; ASA started
Pending Results: No
Total time spent discharging patient (in min): 41
--- NOTE | 2024-06-24 10:26 | PTCARENOTE ---
Pt got OOB to BR and then chair this morning with supervision, kallie well. L chest wall pressure dsg removed by Dr Del Rio, L arm immob removed. Activity instructions/restrictions reviewed, Pt expressed understanding precautions and activity
restrictions for L arm.
--- NOTE | 2024-06-24 10:51 | CM ---
pt agreeable to [facility], referral faxed.
--- NOTE | 2024-06-24 12:30 | W.PN.NEPH.PH ---
Today's Communication / Plan
-
ok for d/c
Assessment/Plan
-
Assessment
Bradycardia
Atrial flutter
ASCVD
YARA
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
Acute anemia
Plan
stable renal function cr at 1.4-baseline
cotn lasix and titrate as needed
no spironolactone for now
f/u with cards, nephro if needed
BMP in 1week with pcp
-
-
Date of Service: June 24, 2024
CC / HPI / ROS
-
Chief Complaint:
Acute kidney injury
History of Present Illness:
Creatinine stable at 1.4
Hemodynamically stable
Remains on amiodarone for atrial fibrillation
K stable
Hgb 8
Review of Systems:
Grossly nonoliguric
No chest pain or shortness of breath at rest
Labs
-
Labs:
WBC 10.2 10^3/uL (4.8-10.8) 06/24/24 05:30
RBC 3.04 10^6/uL (4.70-6.10) L 06/24/24 05:30
Hgb 8.0 g/dL (13.0-18.0) L 06/24/24 05:30
Hct 26.4 % (39.0-52.0) L 06/24/24 05:30
Plt Count 318 10^3/uL (130-400) 06/24/24 05:30
Sodium 138 mmol/L (135-145) 06/24/24 05:30
Potassium 4.7 mmol/L (3.5-5.1) 06/24/24 05:30
Chloride 103 mmol/L (98-107) 06/24/24 05:30
Carbon Dioxide 28 mmol/L (22-30) 06/24/24 05:30
BUN 26 mg/dl (9-20) H 06/24/24 05:30
Creatinine 1.4 mg/dL (0.7-1.3) H 06/24/24 05:30
eGFR 48.65 06/24/24 05:30
Glucose 105 mg/dl (70-99) H 06/24/24 05:30
Calcium 8.7 mg/dl (8.4-10.2) 06/24/24 05:30
Phosphorus 3.8 mg/dl (2.5-4.5) 06/21/24 06:51
Zgg-R-Dygomvhmbqe Pept 4970 pg/ml 06/18/24 22:50
Albumin 4.9 g/dl (3.5-5.0) 06/18/24 22:50
Physical Exam
-
Vital Signs:
Vital Signs
Temp Pulse Resp BP Pulse Ox
97.4 F 70 18 97/83 93
06/24/24 10:56 06/24/24 10:19 06/24/24 10:56 06/24/24 10:19 06/24/24 10:56
Cardiovascular:: Regular rate and rhythm
Respiratory:: Bilateral: Rales (rales)
Lung Excursion:: Normal
Abdomen:: Nontender and Soft
Bowel Sounds:: Normal
Extremity Edema:: None: Bilateral:
Collins Catheter: No
[2024-06-24 12:54] LABS: Glucose - Point of Care 133 mg/dl (70-99)
[2024-06-24 13:38] LABS: Glucose - Point of Care 141 mg/dl (70-99)
== END 2024-06-24 14:45 | disposition home health service (06) | DRG 277 ==
LOC: IVU 02:00
PROVIDERS: Emergency Medicine; Internal Medicine Cardiovascular Disease; Specialist; ADMITTING PHYSICIAN Hospitalist; ATTENDING PHYSICIAN Internal Medicine; CONSULT PHYSICIAN Internal Medicine; CONSULT PHYSICIAN Internal Medicine Critical Care Medicine; CONSULT PHYSICIAN Orthopaedic Surgery Hand Surgery; EMERGENCY PHYSICIAN Emergency Medicine; FAMILY PHYSICIAN Internal Medicine; OTHER PHYSICIAN Internal Medicine Infectious Disease; OTHER PHYSICIAN Specialist; REFERRING PHYSICIAN Internal Medicine Cardiovascular Disease
PROC: 30233N1 Transfusion of Nonautologous Red Blood Cells into Peripheral Vein, Percutaneous Approach (ICD-10-PCS; 2024-06-19)
PROC: 4A023N7 Measurement of Cardiac Sampling and Pressure, Left Heart, Percutaneous Approach (ICD-10-PCS; 2024-06-22)
PROC: B2121ZZ Fluoroscopy of Single Coronary Artery Bypass Graft using Low Osmolar Contrast (ICD-10-PCS; 2024-06-22)
PROC: B2111ZZ Fluoroscopy of Multiple Coronary Arteries using Low Osmolar Contrast (ICD-10-PCS; 2024-06-22)
PROC: B2181ZZ Fluoroscopy of Left Internal Mammary Bypass Graft using Low Osmolar Contrast (ICD-10-PCS; 2024-06-22)
PROC: 0JH608Z Insertion of Defibrillator Generator into Chest Subcutaneous Tissue and Fascia, Open Approach (ICD-10-PCS; 2024-06-23)
PROC: 02HK3KZ Insertion of Defibrillator Lead into Right Ventricle, Percutaneous Approach (ICD-10-PCS; 2024-06-23)
PROC: 02H63KZ Insertion of Defibrillator Lead into Right Atrium, Percutaneous Approach (ICD-10-PCS; 2024-06-23)
DX: I47.21 Torsades de pointes (principal); E87.20 Acidosis, unspecified; I13.0 Hypertensive heart and chronic kidney disease with heart failure and stage 1 through stage 4 chronic kidney disease, or unspecified chronic kidney disease; I50.32 Chronic diastolic (congestive) heart failure; N17.9 Acute kidney failure, unspecified; I5A Non-ischemic myocardial injury (non-traumatic); L03.113 Cellulitis of right upper limb; I24.89 Other forms of acute ischemic heart disease; I48.0 Paroxysmal atrial fibrillation; I25.10 Atherosclerotic heart disease of native coronary artery without angina pectoris; I45.2 Bifascicular block; I35.0 Nonrheumatic aortic (valve) stenosis; R00.1 Bradycardia, unspecified; E03.8 Other specified hypothyroidism; I08.0 Rheumatic disorders of both mitral and aortic valves; R29.6 Repeated falls; K44.9 Diaphragmatic hernia without obstruction or gangrene; N40.0 Benign prostatic hyperplasia without lower urinary tract symptoms; F32.A Depression, unspecified; K21.9 Gastro-esophageal reflux disease without esophagitis; I25.5 Ischemic cardiomyopathy; E87.6 Hypokalemia; D63.1 Anemia in chronic kidney disease; I25.82 Chronic total occlusion of coronary artery; R51.9 Headache, unspecified; N18.32 Chronic kidney disease, stage 3b; E78.00 Pure hypercholesterolemia, unspecified; M71.121 Other infective bursitis, right elbow; I48.92 Unspecified atrial flutter; I25.2 Old myocardial infarction; Z79.01 Long term (current) use of anticoagulants; Z79.02 Long term (current) use of antithrombotics/antiplatelets; Z79.82 Long term (current) use of aspirin; Z79.899 Other long term (current) drug therapy; Z82.49 Family history of ischemic heart disease and other diseases of the circulatory system; Z86.73 Personal history of transient ischemic attack (TIA), and cerebral infarction without residual deficits; Z87.11 Personal history of peptic ulcer disease; Z87.891 Personal history of nicotine dependence; Z95.1 Presence of aortocoronary bypass graft; Z95.5 Presence of coronary angioplasty implant and graft
CPT/HCPCS: 33249; 51798; 70450; 71045; 73070; 73200; 76775; 80048; 80053; 81003; 81099; 82570; 82962; 83605; 83735; 83880; 84100; 84300; 84439; 84443; 84484; 85025; 85027; 85610; 85730; 86850; 86900; 86901; 86920; 87040; 87070; 87205; 93005; 93306; 93459; 93971; 96365; 96366; 96375; 96376; 97110; 97116; 97162; 97167; 97530; 99291; C1721; C1777; C1892; C1894; C1898; P9016; Q9967

== ENCOUNTER 2024-07-28 19:04 | Inpatient (IN) | payer OTHER, SELFPAY ==
[2024-07-28] VITALS (11 sets, daily range): BP systolic 100–175; BP diastolic 53–84; BMI 25.4; BMI 24.6
[2024-07-28 14:23] LABS: % Basophils 0.4 % (0-2); % Eosinophils 1.4 % (0-6); % Immature Granulocytes 0.3 % (0-0.5); % Lymphocytes 20.9 % (20.5-51.1); % Monocytes 8.7 % (1.7-9.3); % Neutrophils 68.3 % (42.2-75.2); Absolute Eosinophils 0.1 10^3/uL (0-0.7); Absolute Lymphocytes 1.5 10^3/uL (1.2-3.4); Absolute Monocytes 0.6 10^3/uL (0.1-0.6); Absolute Neutrophils 5.1 10^3/uL (1.4-6.5); Hematocrit 19.7 % (39.0-52.0); Hemoglobin 5.9 g/dL (13.0-18.0); Mean Corp Hgb Conc. 29.9 g/dL (33.0-37.0); Mean Corpuscular Hgb 25.3 pg (27.0-31.0); Mean Corpuscular Volume 84.5 fL (80.0-94.0); Mean Platelet Volume 9.6 fL (7.4-10.4); Nucleated Red Blood Cells % 0 % (-); Platelet Count 280 10^3/uL (130-400); Red Blood Cell Count 2.33 10^6/uL (4.70-6.10); White Blood Cell Count 7.4 10^3/uL (4.8-10.8)
[2024-07-28 14:33] LABS: ALT (SGPT) 13 U/L (0-50); AST (SGOT) 24 U/L (17-59); Alkaline Phosphatase 124 U/L (38-126); Blood Urea Nitrogen 42 mg/dl (9-20); Carbon Dioxide 25 mmol/L (22-30); Chloride 106 mmol/L (98-107); Glucose 137 mg/dl (70-99); Potassium 4.5 mmol/L (3.5-5.1); Sodium 141 mmol/L (135-145); Total Bilirubin 1.4 mg/dl (0.2-1.3); Total Protein 6.6 g/dl (6.3-8.2); eGFR 35.98
--- NOTE | 2024-07-28 16:30 | ED.GENMED ---
History of Present Illness
General
Chief Complaint: Abnormal Lab Value
Source: patient, records and family
Exam Limitations: none
Time Seen by Provider: 07/28/24 15:56
Nursing documentation reviewed up to this point in time: agreed with
History of Present Illness
History of Present Illness:
88-year-old male with a past medical history of hypertension, hyperlipidemia, atrial fibrillation on Xarelto, VT status post AICD who presents to the emergency room with his daughter for evaluation of weakness, dizziness, shortness of breath and
anemia noted on outpatient labs. Patient notably had a recent admission 06/19 until 06/24 after a fall�he had ventricular tachycardia requiring AICD placement, also sustained elbow injury after a fall that became infected and required treatment with
antibiotics. He says essentially since leaving the hospital he has had increasing shortness of breath particular with exertion, dizziness with exertion. He says that he feels very weak. He had outpatient lab work drawn that showed hemoglobin of 6
yesterday and was told to go to the emergency room. He has not had any chest pain. He denies any syncope. He has not noted any GI bleeding but does have a history of GI bleeding in the past. He is on Xarelto and compliant reports last dose last
night.
Past History
Past History
ED Past Medical History: Arrthythmia (afib), CHF, CVA, HTN, Hypercholesterolemia, MA and Other (Anemia, Diverticulitis, Bowel obstruction, Anemia, Colitis, Ulcers, UTi)
ED Past Surgical History: Appendectomy, Cardiac (CABG) and Orthopedic (Bilateral knee replacement)
Patient has exhibited threatening behavior?: No
Social History
Tobacco: Non-smoker
Alcohol: None
Personal:
Living: alone
Employment: Retired
Review of Systems
Review of Systems
All Other Systems: ROS reviewed and negative except as documented in HPI and ROS
Constitutional: Reports fatigue; Denies fever
Respiratory: Reports trouble breathing
Cardiac: Denies chest pain
ABD/GI: Reports diarrhea; Denies abdominal pain, nausea or vomiting
: Denies flank pain
Musculoskeletal: Denies edema, neck pain or back pain
Neurological: Reports dizzy; Denies headache
Phy Exam
Physical Exam
Physical Exam:
General: Awake, alert, oriented x3; no acute distress
Head: Normocephalic, atraumatic
Eyes: Pale conjunctiva
Throat: Airway intact, handling secretions
Neck: Trachea midline, supple without meningismus
Lungs: Clear to auscultation bilaterally, no wheezing, rales, rhonchi
Heart: Regular rate and rhythm, no murmurs, gallops, or rubs appreciated; left chest wall pacemaker in place
Abd: Soft, non distended, nontender
Rectal: Dark brown stool no bright red blood; Hemoccult is positive
Neuro: No gross deficits
Skin: Pale
Extremities: Warm and well-perfused
Scores
Heart Failure Risk
Heart Failure Risk Score: Not Applicable
Heart Score for Chest Pain Patients
STEMI patient?: Not applicable
Withdrawal Assessment of Alcohol
Withdrawal Assessment Completed?: Not applicable
Course
Orders/Labs/Results
Orders:
Orders
07/28/24 13:54
Type+Screen Urgent
07/28/24 14:04
Complete Blood Count/With Diff Urgent
Comprehensive Metabolic Panel Urgent
07/28/24 15:56
Interrogate Pacemaker- Treatment ONCE
07/28/24 16:12
Blood Bank Products [* Blood Bank Products] Urgent
Blood Bank Products: *Packed RBC Leuko(PRBC's)
Quantity: 2
Transfuse Today: Yes
Reason: Anemia
Pantoprazole [Protonix IV] 80 mg IV NOW STA
07/28/24 16:17
Ferritin Urgent
Iron Urgent
Total Iron Binding Urgent
Abnormal Lab Results
07/28/24
14:04
RBC 2.33 L 10^6/uL
(4.70-6.10)
Hgb 5.9 L* g/dL
(13.0-18.0)
Hct 19.7 L* %
(39.0-52.0)
MCH 25.3 L pg
(27.0-31.0)
MCHC 29.9 L g/dL
(33.0-37.0)
RDW 18.0 H %
(11.5-14.5)
BUN 42 H mg/dl
(9-20)
Creatinine 1.8 H mg/dL
(0.7-1.3)
Glucose 137 H mg/dl
(70-99)
Total Bilirubin 1.4 H mg/dl
(0.2-1.3)
07/28/24 14:04
07/28/24 14:04
Vital Signs
Initial and Last Documented VS:
Initial Vital Signs
Temp Pulse Resp BP Pulse Ox
36.8 C 72 16 100/58 98
07/28/24 13:51 07/28/24 13:51 07/28/24 13:51 07/28/24 13:51 07/28/24 13:51
Last Documented Vital Signs
Temp Pulse Resp BP Pulse Ox
36.8 C 72 16 100/58 98
07/28/24 13:51 07/28/24 13:51 07/28/24 13:51 07/28/24 13:51 07/28/24 13:51
MDM/Problems Addressed
Differential Diagnosis Includes:
Symptomatic anemia�secondary to nutritional deficiency versus bleeding versus hemolysis
MDM/Problems Addressed:
88-year-old male presents to the ER for weakness and dizziness, shortness of breath; found to be anemic on outpatient labs. Fortunately his vital signs here are stable. Physical exam as above�while he has not noted GI bleeding he had dark brown
stool today which was Hemoccult positive. Patient had an IV placed in triage labs sent off including a CBC and a CMP, type and screen. Hemoglobin today is 5.9 from a baseline of 8. Elevated BUN to 42. Will add iron studies. Suspect acute on
chronic anemia secondary to GI bleeding at this point occult upper GI bleeding seems most likely. Patient is on Xarelto reports last dose was about 24 hours ago; considered reversal of anticoagulation with Kcentra but with stable hemodynamics and
no heavy bleeding noted on exam today, last dose 24 hours ago, we will hold off on emergent reversal in favor of holding Xarelto. Will transfuse 2 units of PRBCs. Treated with IV PPI. Admit for trending of hemoglobin and monitoring for bleeding.
Case discussed with hospitalist for admission.
Chronic conditions affecting care:
A-fib on Eliquis complicates bleeding
Acute Exacerbation and/or Progression of Chronic Illness:
Acute on chronic anemia treated with blood transfusion
Acute GI bleeding treated with PPI and blood transfusion
*Pulse Oximetry
Patient hypoxic: no
*Critical Care Note
Total Time (30-74mins, 75-104mins- exclusive of procedures): Not Applicable
Data Reviewed
Review of Other/Old Records Reveals: Labs, Records and Discharge Summary
Source: patient and records
Prescriptions/Medications Considered But Not Given:
Considered Kcentra
Patient Management
Discussion with other providers: Hospitalist (Discussed with hospitalist)
Escalation/DeEscalation of care consider admission/obs:
Admission indicated
ED Attending Note
-
Portions of this chart may have been created with voice recognition software.� Occasional wrong word or��sound alike� substitutions may have occurred due to the inherent limitations of voice recognition software.
Discharge Plan
Departure
Patient Disposition: Admit
Date of Disposition: 07/28/24
Time of Disposition: 16:17
Admit to doctor: Tonia
Presentation/result/management discussed w/ accepting MD/DO: Hospitalist
Discharge Problem:
Acute on chronic anemia, Acute GI bleeding
Prescriptions:
No Action
finasteride 5 MG tablet
5 mg PO HS
cyanocobalamin (vitamin B-12) 1,000 MCG tablet
1,000 mcg PO DAILY
atorvastatin 40 mg tablet
40 mg PO HS
cetirizine [Zyrtec] 10 mg Tablet
10 mg PO HS
zinc sulfate 50 mg zinc (220 mg) Tablet
50 mg PO DAILY
magnesium oxide 500 mg magnesium Tablet
500 mg PO DAILY
pantoprazole 40 mg tablet,delayed release (DR/EC)
40 mg PO DAILY
ascorbic acid (vitamin C) 1,000 mg Tablet
1,000 mg PO DAILY
duloxetine 30 mg Capsule,Delayed Release(Dr/Ec)
30 mg PO DAILY
rivaroxaban 15 mg Tablet
15 mg PO QPM
Probiotic
100 mg PO DAILY
metoprolol succinate 50 mg Tablet Extended Release 24 Hr
50 mg PO DAILY Qty: 30 0RF
aspirin 81 mg Tablet,Chewable
81 mg PO DAILY Qty: 100 0RF
furosemide [Lasix] 40 mg tablet
40 mg PO DAILY Qty: 30 0RF
cephalexin 500 mg capsule
500 mg PO Q8H Qty: 30 0RF
Interventions
Interventions:
*Risk Screen - Suicide Last Done: 07/28/24 13:51
*Neglect/Abuse Screening Last Done: 07/28/24 13:51
Discharge Date and Time
Print Language: UKRAINIAN
--- NOTE | 2024-07-28 17:31 | HPS.HSE ---
Addendum entered and electronically signed by Cindy Randall DO 07/28/24 21:52:
I have seen and examined the patient. I discussed the patient at length with Steffany, and agree with her history and physical assessment and plan of care as per below. Patient is a very pleasant 88-year-old gentleman with past medical history
significant for atrial fibrillation on Xarelto, CHF, CVA, hypertension, hyperlipidemia, CAD, NC, CABG, pacemaker, GI bleed history with GI ulcers status post EGD, diverticulitis, bowel obstruction, colitis presents to the emergency department with
weakness and shortness of breath. He also has some periumbilical abdominal discomfort. He has a history of bleeding, gastric antrum with erythema and peptic ulcer from an EGD on April 18, 2024. Of note he had an admission June 19 to June
2024 due to ventricular tachycardia and he had an AICD placed at that time. His hemoglobin in the emergency department is 5.9. He is actively receiving a unit of packed red blood cells during this history and physical. Otherwise he denies any
other complaints.
He is hemodynamically stable, afebrile
Abdomen he has some mild tenderness on palpation in the periumbilical region without peritoneal signs, heme of the stool was positive in the ED and brought by the ED provider
Cardiovascular regular rate and rhythm without murmurs or gallops
Lungs are clear without wheezes rales or rhonchi
Neuro is grossly intact
# We are admitting the patient for acute blood loss anemia secondary to likely upper GI bleed
- Continue with IV PPI drip
- GI consultation is appreciated
- He is receiving packed red blood cells currently and will monitor his H&H closely
- Hold antiplatelet therapy, hold Xarelto
- Monitor blood pressure after IV fluids, in the gentle IV fluids overnight while he is n.p.o.
I agree with the additional assessment and plan of care as per below
Original Note:
Family Physician
-
Family Physician: Vida Miller MD
Chief Complaint
-
Weakness, dizziness, BLUNT, shortness of breath, abdominal discomfort
History of Present Illness
88-year-old male with his daughter complaining of weakness, dizziness, shortness of breath, BLUNT for the past 3 weeks per patient. He also reports some abdominal discomfort with recent history of bleeding gastric antrum erythema and peptic ulcer on
04/18/2024 for EGD. He had outpatient labs showing anemia. The patient had admission 06/19/2024 - 06/24/2024 due to V. tach requiring AICD placement he also sustained an elbow injury that became infected and required antibiotics since leaving the
hospital he has had increasing shortness of breath with BLUNT. He had outpatient lab work drawn which showed hemoglobin of 6 yesterday 07/27/2024 he was advised to come to the ER for evaluation. He is on Xarelto. In the ER he had heme positive dark
brown stool . At home he denies black stools, bright red stools, vomiting blood or coffee-ground emesis. He does report history of GI bleed in the past. He has past medical history of A-fib, CHF, CVA, HTN, HLD, CAD/NC/CABG, GI bleed, GI ulcers,
diverticulitis, bowel obstruction, colitis
Medical History
Past Medical History
Past Medical History: Reports Other
Additional Past Medical History:
ASCVD
Paroxysmal Atrial Fibrillation
Hyperlipidemia
Paraesophageal Hernia / Gastric Volvulus
Gastric Ulcer
BPH
Depression
Past Surgical History: Reports Other
Additional Past Surgical History:
CABG
Bilateral TKA
RUE Bone Stimulator
Paraesophageal Hernia Repair / Gastropexy
Cholecystectomy
Social History
Tobacco: Former Smoker (Quit many years ago.)
Alcohol: None
Drug: None
Family History
Family History: Other (Father: CAD Mother: Longevity)
Allergies / Home Medications
Allergies reflects when Allergies were last updated in [facility].
Home Medications with original date entered in [facility]
Allergy/Medication List:
Allergies
Allergy/AdvReac Type Severity Reaction Status Date / Time
No Known Allergies Allergy Verified 06/18/24 23:42
Home Medications
finasteride 5 mg tablet 5 mg PO HS Urinary issue 03/05/20
cyanocobalamin (vitamin B-12) 1,000 mcg tablet 1,000 mcg PO DAILY Supplement 01/25/21
amiodarone 200 mg tablet (Pacerone) 200 mg PO MOWEFR Arrhythmia 11/02/21
atorvastatin 40 mg tablet 40 mg PO HS High Cholesterol 12/19/22
cetirizine 10 mg tablet (Zyrtec) 10 mg PO HS Allergies 12/31/23
magnesium oxide 500 mg PO DAILY Supplement 12/31/23
zinc sulfate 50 mg zinc (220 mg) tablet 50 mg PO DAILY Supplement 12/31/23
pantoprazole 40 mg tablet,delayed release 40 mg PO DAILY Gastrointestinal Issue 02/28/24
Probiotic 100 mg PO DAILY 06/18/24
ascorbic acid (vitamin C) 1,000 mg tablet 1,000 mg PO DAILY 06/18/24
clopidogrel 75 mg tablet 75 mg PO DAILY 06/18/24
duloxetine 30 mg capsule,delayed release 30 mg PO DAILY 06/18/24
furosemide 40 mg tablet 40 mg PO Q48H 06/18/24
rivaroxaban 15 mg tablet 15 mg PO DAILY 06/18/24
spironolactone 25 mg tablet 25 mg PO MOWEFR 06/18/24
Review of Systems
-
History Source: Patient and Family (daughter )
A 12 point ROS was completed and negative except as noted: Yes
Constitutional: Reports Fatigue; Denies Chills
EENT: Denies Sore Throat, Mouth Pain or Runny Nose
Respiratory: Reports Trouble Breathing (BLUNT); Denies Cough
Cardiac: Denies Chest Pain, Diaphoresis, Palpitations or Syncope
Abdomen/GI: Reports Abdominal Pain (Abdominal discomfort), Diarrhea (On and off between pebble-like stool then pudding-like after chronic MiraLAX) and Constipated; Denies Nausea, Vomiting, Bloody Stools or Black Stools
: Denies Dysuria, Frequency, Flank Pain, Incontinence or Difficulty Voiding
Musculoskeletal: Denies Joint Pain or Edema
Skin: Denies Itching or Rash
Neurological: Reports Weakness (Generalized); Denies Dizzy or Headache
Endocrine: Reports No Symptoms
Hematologic/Lymphatic: Reports No Symptoms
Psych: Reports Calm
Physical Exam
Vital Signs
Vital Signs
Temp Pulse Resp BP Pulse Ox
98.2 F 69 18 136/60 93
07/28/24 13:51 07/28/24 17:21 07/28/24 17:21 07/28/24 17:21 07/28/24 17:21
Physical Exam
General: Conversant; No Pain, Fever or Chills
HEENT: NormoCephalic, Anicteric, Moist mucous membranes, PERRLA, No Ptosis and Other (Pale conjunctiva)
Respiratory: Clear; No Wheezes, Rales or Rhonchi
Cardiac: S1/S2 and Regular Rhythm; No Murmur, Rub, Gallop or Peripheral Edema
Breast: Deferred by me
GI: Soft, Non Tender, Non Distended, Normal Bowel Sounds and Tender (Epigastric)
Rectal: Hem Positive (Brown stool)
Genito-urinary: Deferred by me
Musculoskeletal: No Clubbing, No Cyanosis and No Edema
Skin: Warm and Dry; No Rash or Jaundice
Neuro: AO x 3, No Motor Deficits, Nonfocal/grossly intact, Cranial Nerves Intact and No Sensory Deficits; No Slurred Speech, Facial Droop, Tremors or Sedated
Psych: Calm
Laboratory Results
-
07/28/24 14:04
07/28/24 14:04
Laboratory Results
Total Bilirubin 1.4 mg/dl (0.2-1.3) H 07/28/24 14:04
AST 24 U/L (17-59) 07/28/24 14:04
ALT 13 U/L (0-50) 07/28/24 14:04
Alkaline Phosphatase 124 U/L (38-126) 07/28/24 14:04
Data Reviewed
-
Lab Data: Labs Reviewed by me
Impression/Plan
-
Impression/plan:
Admit to IMU
#Anemia concern for GI bleed/gastric antrum erythema and peptic ulcer on 04/18/25 EGD
#History of GERD/PUD
#History of gastric ulcer 01/11/2024 seen on EGD required 2 units PRBC
Hgb 5.9
Heme test stools
-Type and screen obtained, obtain blood consent in ER
-Transfuse 2 units PRBC
-Add-on iron panel, B12, folate
-N.p.o.
- Hold Xarelto
- IV Protonix 80 mg grams now then Protonix drip
- Consult GI-Dr. Raman aware
-Iron sat 5%, iron 22
- Will give Ferrlecit
#Hypotension secondary to possible blood loss anemia versus volume depletion
BP 100/58
- Hold metoprolol succinate 50 mg at bedtime, Lasix 40 mg daily
-IV NSS 50 cc an hour x 1 L
#YARA due to blood loss anemia/volume depletion on CKD 3B
-Patient follows with nephro
Creat 1.8 prior baseline 1.24 June 2024
Will transfuse 2 units PRBC
#P/p ICD/pacer implant 06/23 with EP due to V. tach
#V-tach with syncope 06/12/2024
-Was treated with IV amiodarone, IV lidocaine
- - Echo: 06/19/2024: LVEF 55-60%, moderate MS (17/7 mmHg), moderate (41/22 mmHg, BRANDI 1.0 cm�), mild TR, PASP 37 mmHg
#HX permanent A. Flutter per Cardiology
-Continue aspirin
-Hold Xarelto 15 mg at bedtime
#Hx of CAD with hx of CABG
#non-ischemic myocardial injury in setting of YARA, anemia, arrhythmia May 2024
At that time trop .135 peak
-Hold ASA, atorvastatin 40 mg at bedtime
-Hold Xarelto due to severe anemia
-- s/p cath on 06/23 with stable coronaries
#Chronic heart failure EF 55 to 60%
-HOLD Lasix 40mg daily due to hypotension
- Follow I/Os, daily weights, etc.
#BPH
- Stable. bladder scan protocol.
- Hold Flomax given hypotension
#Elevated TSH on May admission
- normal T4
- repeat TFT
Other pmh:
Right Elbow Pain hx May - June 2024
- Patient with bone stimulator in place R elbow (old). Had history of edema in the subcutaneous tissue in June was treated with Keflex and follow-up outpatient Ortho
DVT Prophylaxis: SCDs
Code Status: Full
[2024-07-28 18:00] LABS: Iron 22 ug/dl (49-181)
[2024-07-28] MEDS: PROTONIX IV 80 MG IV (18:05)
[2024-07-28 18:09] LABS: Percent Saturation 5 % (20-50); Total Iron Binding Capacity 426 ug/dl (261-462)
[2024-07-28 18:46] LABS: Ferritin 14.2 ng/ml (17.9-464.0)
[2024-07-28 19:17] LABS: Folate 14.9 ng/ml (2.76-20); Vitamin B12 > 1000 pg/ml (239-931)
--- NOTE | 2024-07-28 21:30 | PTCARENOTE ---
Pt rec'd to floor w/1 Unit PRBC's infusing. Able to stand to transfer from stretcher into bed. A & O x3. States some mild dizziness upon standing. Plan of care explained to pt. Call riley use reviewed and pt informed not to get OOB w/o assistance;
verbalizes understanding.
--- NOTE | 2024-07-29 02:00 | PTCARENOTE ---
2nd unit of PRBC's infused w/no adverse reaction noted.
[2024-07-29] MEDS: NSS 1000 IV (02:14)
[2024-07-29 03:42] VITALS: BP 152/81
[2024-07-29] MEDS: PROTONIX 100 IV ×2 (04:30→13:18)
[2024-07-29 06:00] VITALS: BMI 24.8
[2024-07-29 06:50] LABS: % Basophils 0.5 % (0-2); % Eosinophils 1.6 % (0-6); % Immature Granulocytes 0.1 % (0-0.5); % Lymphocytes 23.6 % (20.5-51.1); % Monocytes 11.1 % (1.7-9.3); % Neutrophils 63.1 % (42.2-75.2); Absolute Basophils 0.1 10^3/uL (0-0.2); Absolute Eosinophils 0.2 10^3/uL (0-0.7); Absolute Lymphocytes 2.2 10^3/uL (1.2-3.4); Absolute Neutrophils 5.7 10^3/uL (1.4-6.5); Hematocrit 26.2 % (39.0-52.0); Hemoglobin 8.2 g/dL (13.0-18.0); Mean Corp Hgb Conc. 31.3 g/dL (33.0-37.0); Mean Corpuscular Hgb 26.4 pg (27.0-31.0); Mean Corpuscular Volume 84.2 fL (80.0-94.0); Mean Platelet Volume 9.6 fL (7.4-10.4); Nucleated Red Blood Cells % 0.3 % (-); Platelet Count 222 10^3/uL (130-400); Red Blood Cell Count 3.11 10^6/uL (4.70-6.10); Red Cell Dist. Width 19.4 % (11.5-14.5); White Blood Cell Count 9.1 10^3/uL (4.8-10.8)
[2024-07-29 06:53] LABS: ALT (SGPT) 11 U/L (0-50); AST (SGOT) 21 U/L (17-59); Albumin 3.4 g/dl (3.5-5.0); Alkaline Phosphatase 113 U/L (38-126); Blood Urea Nitrogen 33 mg/dl (9-20); Calcium 8.7 mg/dl (8.4-10.2); Carbon Dioxide 24 mmol/L (22-30); Chloride 112 mmol/L (98-107); Estimated Creatinine Clearance 32 ml/min; Glucose 115 mg/dl (70-99); Potassium 4.2 mmol/L (3.5-5.1); Sodium 143 mmol/L (135-145); Total Bilirubin 2.4 mg/dl (0.2-1.3); Total Protein 5.9 g/dl (6.3-8.2); eGFR 48.65
[2024-07-29 07:41] LABS: Free T4 0.85 ng/dl (0.78-2.19)
[2024-07-29 08:02] VITALS: BP 139/65
--- NOTE | 2024-07-29 08:19 | VNURNOTE ---
Chart reviewed. Patient is current with [facility] nursing. Will continue to follow hospital course and DC plans.
[2024-07-29 12:12] VITALS: BP 146/75
[2024-07-29] MEDS: FERRLECIT 110 MG IV (13:17)
--- NOTE | 2024-07-29 15:00 | W.PN.HOSP.TC ---
Today's Communication/Plan
-
IV PPI
N.p.o.
Hold Xarelto
GI evaluation likely for EGD
Assessment / Plan
Assessment / Plan
Impression:
Presentation with exertional dyspnea, abdominal discomfort.
Symptomatic acute blood loss anemia secondary in the settings of gastrointestinal hemorrhage secondary to Xarelto
Iron deficiency
YARA secondary to anemia
Other conditions:
Ventricular tachycardia status post AICD implant 07/15
Chronic CHF preserved EF
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
BPH.
Subclinical hypothyroidism
Plan:
Acute blood loss anemia
Presents with hemoglobin of 5
Symptomatic with exertional dyspnea.
Hemodynamically stable with no evidence of acute/brisk blood loss
Rectal examination with brown heme positive stool.
Prior history of PUD with endoscopy 01/14 at that time nonbleeding ulcer
On PPI prior to presentation.
Transfused 2 units of packed red blood cells with appropriate response in hemoglobin above 8.
Continue n.p.o.
Holding Xarelto and aspirin
Continue IV PPI drip.
GI evaluation pending
Iron deficiency, initiated on IV iron
Cardiovascular:
Chronic CHF preserved EF.
History of VT status post AICD implant 07/15.
Volume status compensated
Monitor with transfusions.
Resume metoprolol
YARA on CKD stage IIIb.
Secondary to prerenal stimulator with acute anemia.
Creatinine trending down 1.8�1.5.
Subclinical hypothyroidism
TSH now above 10. Normal free T4
Plan is to start levothyroxine supplementation upon discharge with follow-up TFTs as outpatient
Full code
DVT prophylaxis mechanical
Anticipated Discharge: 24 - 48 hours
Subjective/Interval History
-
Date of Service: July 29, 2024
Objective Data
-
Labs:
Laboratory Results
07/29/24
05:58
WBC 9.1
Hgb 8.2 L D
Hct 26.2 L
Plt Count 222 D
Sodium 143
Potassium 4.2
Chloride 112 H
Carbon Dioxide 24
BUN 33 H
Creatinine 1.4 H
Glucose 115 H
Calcium 8.7
Total Bilirubin 2.4 H D
AST 21
ALT 11
Alkaline Phosphatase 113
Vital Signs:
Vital Signs
Temp Pulse Resp BP Pulse Ox
98.1 F 71 18 146/75 97
07/29/24 12:12 07/29/24 12:12 07/29/24 12:12 07/29/24 12:12 07/29/24 12:12
I&O
07/28/24 07/29/24 07/30/24
06:59 06:59 06:59
Intake Total 500 / 500
Output Total 600 / 600
Balance 500 / 500 -600 / -600
Physical Exam
-
General: Well Developed and No Apparent Distress
HEENT: Normocephalic, Atraumatic and Moist Mucous Membranes
Respiratory: Clear to Auscultation
Cardiac: Regular Rhythm and S1/S2; Negative Murmur, Rub or Gallop
GI: Soft, Nontender, Nondistended and Normal Bowel Sounds; Negative Organomegaly
Rectal: Deferred by Provider
Musculoskeletal: No Clubbing, No Cyanosis and No Edema
Skin: Negative Rash
Neuro: Nonfocal/Grossly Intact
[2024-07-29 15:45] VITALS: BP 155/78
--- NOTE | 2024-07-29 15:46 | CON.GI ---
Addendum entered and electronically signed by Angelica Raman DO 07/29/24 16:53:
Patient seen and examined independently of [facility]. I agree with her note with my additions below
Raul is an 88-year-old male with history of atrial fibrillation on Xarelto, CAD with prior CABG, V. tach status post AICD 07/20/2024, large paraesophageal hernia with obstruction status post repair and gastropexy in 2021, gallstone pancreatitis
status postcholecystectomy in October 2021, last colonoscopy in [address] Maldonado with 1 8 mm cecal polyp and diverticulosis who we last saw in December 2019 for symptomatic iron deficiency anemia found to have a nonbleeding gastric ulcer with a
clean base, gastric atrophy in the antrum. No biopsies taken and no endoscopic therapy required. Placed on pantoprazole twice daily for 8 weeks then repeat EGD in March [address] Main showed no evidence of bleeding. Then reduce
down to 40 mg once daily. Just last month had a recent admission for V. tach requiring AICD placement and was discharged on June 24. He states over the past 3 weeks has had significant fatigue dyspnea on exertion and had an outpatient hemoglobin
that was low and was told to come to the emergency room. In the emergency room he has brown heme positive stool with a hemoglobin of 5.9. His last dose of Xarelto was on Sunday. He was transfused 2 units of blood and given IV iron now with a
hemoglobin of 8.2. He does not know his medication list well but is on aspirin and denies any other significant NSAIDs. He believes he is on an acid medication which pantoprazole is on his list. He has chronic kidney injury with a BUN of 33
creatinine of 1.4, ferritin was 14, total bilirubin 2.5. No direct view
#Symptomatic iron deficiency anemia -hemodynamically stable with brown heme positive stools
-- Etiology of bleeding could be angioectasias, ulcer, neoplasms, esophagitis
-- Will start with EGD tomorrow and if negative colonoscopy on
-- He does not need a PPI drip twice daily is fine, would give more IV iron
-- Discussed with his daughter Evangelina over the phone and she is agreeable
Original Note:
Consultation
-
Date/Time Consultation Requested: 07/29/24 1445
Date/Time Consultation Performed: 07/29/24 1546
Requesting Provider: Dr. Baker
Performing Provider: Dr. Raman/TASHI Leavitt
Reason for Consultation: severe anemia/OB pos stool
Medical History
Chief Complaint / HPI
Chief Complaint: abdominal pain
History of Present Illness:
87 yo male with a PMH significant for Afib on Xarelto, HTN, CAD with prior CABG, HLD , V. tach status postcardiac catheterization with AICD 07/20/2024, right elbow cellulitis, diverticulitis/diverticulosis, paraesophageal hernia with obstruction s/p
repair and gastropexy 2021, gallstone pancreatitis s/p cholecystectomy in October 2021, colon polyps who we saw in December 2023 for symptomatic iron deficiency anemia found to have evidence of prior paraesophageal repair/gastropexy, nonbleeding
gastric ulcer with a clean ulcer base, atrophic mucosa in the antrum. Patient was placed on pantoprazole 40 mg twice daily for 8 weeks with a repeat endoscopy performed in March 2024 that showed variable Z-line, gastritis, normal duodenal bulb
and second portion of the duodenum. He was then reduced down to pantoprazole 40 mg daily. The patient had a recent admission and discharge for V. tach requiring AICD placement and atraumatic elbow injury with cellulitis requiring antibiotics. He
was discharged on 06/24/2024. He states that he has had approximately 3-week history of fatigue and weakness. He had outpatient lab work performed that showed a hemoglobin that was low and he proceeded come to the emergency room for further
evaluation. In the ER he had brown OB positive stool. His hemoglobin was found to be 5.9. We are asked to evaluate for same. His last dose of Xarelto was on Sunday evening. This has been held since that time. He was transfused 2 units of
packed red blood cells and was given IV iron. Currently hemoglobin 8.2. Patient is agreeable to start with endoscopy if that is negative to proceed with colonoscopy. The patient denies any GI complaints. He denies any fevers, chills, nausea,
vomiting, melena, hematochezia, dysphagia or odynophagia. No early satiety or unintentional weight loss. The patient is agreeable to endoscopy tomorrow and colonoscopy if need be.
Past Medical History
Past Medical History: Arrhythmias (PAF), HTN, Hypercholesterolemia, Psychiatric (depression ) and Other (ASCVD, paraesophageal hernia, gastric volvulus, gallstone pancreatitis, hard of hearing, right elbow cellulitis, gastric ulcer)
Past Surgical History: Cardiac (CABG, AICD), Cholecystectomy, Orthopedic (bilateral TKA, bone stimulator RUE) and Other (paraoesophageal hernia repair with gastropexy, bone stimulator)
Social History
Tobacco: Former Smoker (only in teen years )
Alcohol: Occasional (rare )
Drug: None
Living: With Family (daughter alice )
Employment: Retired
Family History
Family History: Other (no family hx colon CA or polyps )
Allergies / Home Medications
Allergy/AdvReac Type Severity Reaction Status Date / Time
No Known Allergies Allergy Verified 07/28/24 13:54
�Medication �Instructions �Recorded
finasteride 5 mg tablet 5 mg PO HS Urinary issue 03/05/20
cyanocobalamin (vitamin B-12) 1,000 mcg PO DAILY Supplement 01/25/21
1,000 mcg tablet
atorvastatin 40 mg tablet 40 mg PO HS High Cholesterol 12/19/22
magnesium oxide 500 mg PO DAILY Supplement 12/31/23
zinc sulfate 50 mg zinc (220 mg) 50 mg PO DAILY Supplement 12/31/23
tablet
pantoprazole 40 mg tablet,delayed 40 mg PO DAILY Gastrointestinal 02/28/24
release Issue
Lactobac no.2-Bifidobac no.1-S. 1 cap PO DAILY Gastrointestinal 06/18/24
thermo 112.5 billion cell capsule Issue ##0
(Visbiome)
ascorbic acid (vitamin C) 1,000 mg 1,000 mg PO DAILY Supplement 06/18/24
tablet
rivaroxaban 15 mg tablet 15 mg PO HS Blood Clot 06/18/24
Prevention/Tx
aspirin 81 mg chewable tablet 81 mg PO DAILY #100 tabs 06/24/24
furosemide 40 mg tablet (Lasix) 40 mg PO DAILY #30 tabs 06/24/24
duloxetine 40 mg capsule,delayed 40 mg PO DAILY 07/28/24
release
metoprolol succinate 50 mg 50 mg PO HS 07/28/24
tablet,extended release 24 hr
polyethylene glycol 3350 17 gram 17 g PO DAILYPRN PRN constipation 07/28/24
oral powder packet (Miralax)
Review of Systems
-
All other systems: A 12 pt ROS was Negative except as stated above in HPI
Vital Signs
Temp Pulse Resp BP Pulse Ox
97.9 F 72 18 155/78 93
07/29/24 15:45 07/29/24 15:45 07/29/24 15:45 07/29/24 15:45 07/29/24 15:45
Physical Exam
Exam
General: No Apparent Distress
HEENT: Anicteric
Respiratory: Clear (Anterior)
Cardiac: Regular Rhythm
GI: Soft, Non Tender, Non Distended and Normal Bowel Sounds
Rectal: Hem Positive (Brown OB positive stool by ER)
Skin: Warm and Dry
Neuro: AO x 3
Psych: Calm
Results
WBC 9.1 10^3/uL (4.8-10.8) 07/29/24 05:58
Hgb 8.2 g/dL (13.0-18.0) L D 07/29/24 05:58
Hct 26.2 % (39.0-52.0) L 07/29/24 05:58
MCV 84.2 fL (80.0-94.0) 07/29/24 05:58
Plt Count 222 10^3/uL (130-400) D 07/29/24 05:58
Absolute Neuts (auto) 5.7 10^3/uL (1.4-6.5) 07/29/24 05:58
Sodium 143 mmol/L (135-145) 07/29/24 05:58
Potassium 4.2 mmol/L (3.5-5.1) 07/29/24 05:58
Chloride 112 mmol/L (98-107) H 07/29/24 05:58
Carbon Dioxide 24 mmol/L (22-30) 07/29/24 05:58
BUN 33 mg/dl (9-20) H 07/29/24 05:58
Creatinine 1.4 mg/dL (0.7-1.3) H 07/29/24 05:58
Calcium 8.7 mg/dl (8.4-10.2) 07/29/24 05:58
Total Bilirubin 2.4 mg/dl (0.2-1.3) H D 07/29/24 05:58
AST 21 U/L (17-59) 07/29/24 05:58
ALT 11 U/L (0-50) 07/29/24 05:58
Alkaline Phosphatase 113 U/L (38-126) 07/29/24 05:58
Diagnostic Image Results:
None this admission
Prior GI Procedures:
EGD 04/18/2024: - Z-line variable, 41 cm from the incisors.
- Gastritis.
- Normal duodenal bulb and second portion of the
duodenum.
- No specimens collected.
EGD: 01/02/2024: - - Normal esophagus.
Evidence of prior paraesophageal repair/gastropexy.
Non-bleeding gastric ulcer with a clean ulcer base
(Aden Class III).
- Atrophic mucosa in the antrum.
- Normal examined duodenum.
- No specimens collected.
EGD 03/07/2020 ([facility]) The examined esophagus was tortuous.
A 10 cm mixed paraesophageal hernia was found. The proximal extent of
the gastric folds (end of tubular esophagus) was 35 cm from the
incisors. The hiatal narrowing was 45 cm from the incisors. The Z-line
was 35 cm from the incisors.
A few dispersed small erosions with no stigmata of recent bleeding were
found in the gastric fundus.
The exam of the stomach was otherwise normal.
The examined duodenum was normal.
Colonoscopy: 03/08/2020 ([facility]) - One 8 mm polyp in the cecum, removed with a cold
snare. Resected and retrieved. Clips were placed.
- Diverticulosis in the sigmoid colon, in the
descending colon, in the transverse colon and in the
ascending colon.
- Non-bleeding internal hemorrhoids.
- The examined portion of the ileum was normal.
EGD:
inpatient [facility], 2018: schatzki's ring, hiatal hernia, erosions - Aleksandr lesions - biopsies just inflammation, neg celiac, neg h.pylori
COLO 06/08/2013 ([facility]) - The examined portion of the ileum was normal.
- One 7 mm polyp in the proximal ascending colon.
Resected and retrieved. Clipped.
- Severe diverticulosis in the entire examined colon.
There was no evidence of diverticular bleeding.
- Congested mucosa in the distal sigmoid colon. Biopsied.
- Non-bleeding non-thrombosed non-prolapsed internal
hemorrhoids.
- Lnytoviz-mbgaifm-fgvvtihro mucosa in the entire
examined colon. Biopsied.
- The distal sigmoid had severe diverticulosis and
hypertrophic mucosa. The area was difficult to traverse
with the pediatric colonoscopy. Biopsies were obtained
of the area. This area may be the responsible for the
patient's constipation.
-There was no obvious inflammation of the sigmoid colon
but the severe diverticulosis may be serving as an
effective partial obstruction leading to the severe and
worsening constipation.
06/08/24 EGD: ([facility]) - Mild Schatzki ring. Biopsied.
- Hiatus hernia.
- Paraesophageal hernia.
- Alcoholic gastritis. Biopsied.
- Duodenal erosion without bleeding.
- Chronic duodenitis.
Assessment / Plan
-
87 yo male with a PMH significant for Afib on Xarelto, HTN, CAD with prior CABG, HLD , V. tach status postcardiac catheterization with AICD 07/20/2024, right elbow cellulitis, diverticulitis/diverticulosis, paraesophageal hernia with obstruction s/p
repair and gastropexy 2021, gallstone pancreatitis s/p cholecystectomy in October 2021, colon polyps who we saw in December 2023 for symptomatic iron deficiency anemia found to have evidence of prior paraesophageal repair/gastropexy, nonbleeding
gastric ulcer with a clean ulcer base, atrophic mucosa in the antrum. Patient was placed on pantoprazole 40 mg twice daily for 8 weeks with a repeat endoscopy performed in March 2024 that showed variable Z-line, gastritis, normal duodenal bulb
and second portion of the duodenum. He was then reduced down to pantoprazole 40 mg daily. The patient had a recent admission and discharge for V. tach requiring AICD placement and atraumatic elbow injury with cellulitis requiring antibiotics. He
was discharged on 06/24/2024. He states that he has had approximately 3-week history of fatigue and weakness. He had outpatient lab work performed that showed a hemoglobin that was low and he proceeded come to the emergency room for further
evaluation. In the ER he had brown OB positive stool. His hemoglobin was found to be 5.9. We are asked to evaluate for same.
Impression:
Severe iron deficiency anemia with OB positive brown stool
--> Hemoglobin on presentation 5.9 status post 2 units packed red blood cells and iron currently with hemoglobin 8.3
--> Patient had both EGD and colonoscopy in 2019 which was unrevealing for source of chronic iron deficiency.
A-fib on Xarelto, last dose 07/27/2024 evening
History of CAD prior CABG on aspirin 81 mg daily
Prior history of gastric ulcer 12/2023 treated with PPI twice daily status post repeat EGD 03/2024 with resolution, continues on daily PPI.
Plan:
-Okay for full liquids this evening
-NPO after midnight except meds.
-EGD tomorrow
-Continue on pantoprazole
-CBC, BMP in a.m.
-If EGD is negative we will then proceed with colonoscopy
-If both EGD and colonoscopy are negative patient will need video capsule endoscopy as outpatient
-Further recommendations to be forthcoming.
-
-
Thank you for consultation and allowing me to participate in the patient's care. Please call the [facility] machine operator GI physician during the after hours with any questions or concerns.
--- NOTE | 2024-07-29 16:53 | CM ---
Alert awake oriented patient who lives with his dgt Cindy in a 2 story home with 1 steps to enter and 12 steps to bed/bathroom. He is independent in activates of daily living.He does drive .He uses a walker wc rollator.Offered VN he requested [facility] .
As per [facility] current with Jon[facility].Will need to clarify.
Had [facility] in past . No SNF hx
Pharmacy [facility]
PCP Dr Miller
PLAN Home with VN please clarify which agency
[2024-07-29 19:40] VITALS: BP 144/77
[2024-07-29] MEDS: PROTONIX 40 MG PO (19:42)
[2024-07-29] MEDS: TOPROL XL 50 MG PO (21:03)
[2024-07-29 23:55] VITALS: BP 152/91
[2024-07-30] VITALS (13 sets, daily range): BP systolic 109–157; BP diastolic 58–86; BMI 24.8
[2024-07-30 06:30] LABS: % Basophils 0.6 % (0-2); % Eosinophils 1.9 % (0-6); % Immature Granulocytes 0.3 % (0-0.5); % Lymphocytes 20.1 % (20.5-51.1); % Monocytes 14.7 % (1.7-9.3); % Neutrophils 62.4 % (42.2-75.2); Absolute Basophils 0.1 10^3/uL (0-0.2); Absolute Eosinophils 0.2 10^3/uL (0-0.7); Absolute Monocytes 1.4 10^3/uL (0.1-0.6); Absolute Neutrophils 6.1 10^3/uL (1.4-6.5); Hematocrit 26.9 % (39.0-52.0); Hemoglobin 8.6 g/dL (13.0-18.0); Mean Corpuscular Volume 84.3 fL (80.0-94.0); Mean Platelet Volume 9.8 fL (7.4-10.4); Nucleated Red Blood Cells % 0.7 % (-); Platelet Count 227 10^3/uL (130-400); Red Blood Cell Count 3.19 10^6/uL (4.70-6.10); Red Cell Dist. Width 19.4 % (11.5-14.5); White Blood Cell Count 9.7 10^3/uL (4.8-10.8)
[2024-07-30 06:58] LABS: ALT (SGPT) 11 U/L (0-50); AST (SGOT) 23 U/L (17-59); Albumin 3.6 g/dl (3.5-5.0); Alkaline Phosphatase 117 U/L (38-126); Blood Urea Nitrogen 24 mg/dl (9-20); Calcium 9.1 mg/dl (8.4-10.2); Carbon Dioxide 23 mmol/L (22-30); Chloride 114 mmol/L (98-107); Direct Bilirubin 0.2 mg/dl (0.0-0.4); Estimated Creatinine Clearance 35 ml/min; Glucose 109 mg/dl (70-99); Potassium 4.7 mmol/L (3.5-5.1); Sodium 144 mmol/L (135-145); Total Bilirubin 2.5 mg/dl (0.2-1.3); Total Protein 6.1 g/dl (6.3-8.2); eGFR 53.17
[2024-07-30] MEDS: PROTONIX 40 MG PO ×2 (08:03→20:16)
[2024-07-30] MEDS: NULYTELY SOLUTION 4 LITERS PO (13:26)
[2024-07-30] MEDS: FERRLECIT 110 MG IV (13:26)
[2024-07-30] MEDS: LASIX 40 MG PO (15:07)
--- NOTE | 2024-07-30 15:13 | W.PN.HOSP.TC ---
Today's Communication/Plan
-
Prep for colonoscopy.
Clear liquid diet.
Transition to oral PPI.
Rales on exam, resume oral Lasix
Assessment / Plan
Assessment / Plan
Impression:
Presentation with exertional dyspnea, abdominal discomfort.
Symptomatic acute blood loss anemia secondary in the settings of gastrointestinal hemorrhage secondary to Xarelto
Iron deficiency
YARA secondary to anemia
Other conditions:
Ventricular tachycardia status post AICD implant 07/15
Chronic CHF preserved EF
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
BPH.
Subclinical hypothyroidism
Plan:
Acute blood loss anemia
Presents with hemoglobin of 5
Symptomatic with exertional dyspnea.
Hemodynamically stable with no evidence of acute/brisk blood loss
Rectal examination with brown heme positive stool.
Prior history of PUD with endoscopy 01/14 at that time nonbleeding ulcer
EGD 07/30 with no apparent source
Clear liquid diet
Oral PPI
Prep for colonoscopy
Transfused 2 units of packed red blood cells with appropriate response in hemoglobin above 8.
Follow hemoglobin
Holding Xarelto and aspirin
Iron deficiency, initiated on IV iron
Cardiovascular:
Chronic CHF preserved EF.
History of VT status post AICD implant 07/15.
Volume status compensated
Monitor with transfusions.
Resume metoprolol
Resume Lasix
YARA on CKD stage IIIb.
Secondary to prerenal stimulator with acute anemia.
Creatinine trending down 1.8�1.5�1.3
Subclinical hypothyroidism
TSH now above 10. Normal free T4
Plan is to start levothyroxine supplementation upon discharge with follow-up TFTs as outpatient
Full code
DVT prophylaxis mechanical
Anticipated Discharge: 24 - 48 hours
Subjective/Interval History
-
Date of Service: July 30, 2024
Objective Data
-
Labs:
Laboratory Results
07/30/24
06:15
WBC 9.7
Hgb 8.6 L
Hct 26.9 L
Plt Count 227
Sodium 144
Potassium 4.7
Chloride 114 H
Carbon Dioxide 23
BUN 24 H
Creatinine 1.3
Glucose 109 H
Calcium 9.1
Total Bilirubin 2.5 H
AST 23
ALT 11
Alkaline Phosphatase 117
Vital Signs:
Vital Signs
Temp Pulse Resp BP Pulse Ox
97.8 F 72 18 132/73 97
07/30/24 13:15 07/30/24 13:15 07/30/24 13:15 07/30/24 13:15 07/30/24 13:15
I&O
07/29/24 07/30/24 07/31/24
06:59 06:59 06:59
Intake Total 500 / 500 480 / 480
Output Total 1100 / 1100
Balance 500 / 500 -620 / -620
Physical Exam
-
General: Well Developed and No Apparent Distress
HEENT: Normocephalic, Atraumatic and Moist Mucous Membranes
Respiratory: Rales
Cardiac: Regular Rhythm and S1/S2; Negative Murmur, Rub or Gallop
GI: Soft, Nontender, Nondistended and Normal Bowel Sounds; Negative Organomegaly
Rectal: Deferred by Provider
Musculoskeletal: No Clubbing, No Cyanosis and No Edema
Skin: Negative Rash
Neuro: Nonfocal/Grossly Intact
[2024-07-30] MEDS: TOPROL XL 50 MG PO (20:15)
[2024-07-30] MEDS: LIPITOR 40 MG PO (20:16)
[2024-07-30] MEDS: PROSCAR 5 MG PO (20:16)
[2024-07-31] VITALS (11 sets, daily range): BP systolic 16–152; BP diastolic 44–81; BMI 24.8
[2024-07-31 06:38] LABS: % Basophils 0.4 % (0-2); % Eosinophils 2.7 % (0-6); % Immature Granulocytes 0.2 % (0-0.5); % Lymphocytes 23.2 % (20.5-51.1); % Monocytes 14.5 % (1.7-9.3); Absolute Eosinophils 0.2 10^3/uL (0-0.7); Absolute Lymphocytes 1.9 10^3/uL (1.2-3.4); Absolute Monocytes 1.2 10^3/uL (0.1-0.6); Absolute Neutrophils 4.7 10^3/uL (1.4-6.5); Hematocrit 24.3 % (39.0-52.0); Hemoglobin 7.8 g/dL (13.0-18.0); Mean Corp Hgb Conc. 32.1 g/dL (33.0-37.0); Mean Corpuscular Hgb 27.3 pg (27.0-31.0); Nucleated Red Blood Cells % 1.6 % (-); Platelet Count 216 10^3/uL (130-400); Red Blood Cell Count 2.86 10^6/uL (4.70-6.10); Red Cell Dist. Width 19.3 % (11.5-14.5); White Blood Cell Count 8.1 10^3/uL (4.8-10.8)
[2024-07-31 06:49] LABS: ALT (SGPT) 11 U/L (0-50); AST (SGOT) 21 U/L (17-59); Albumin 3.1 g/dl (3.5-5.0); Alkaline Phosphatase 123 U/L (38-126); Blood Urea Nitrogen 16 mg/dl (9-20); Calcium 8.7 mg/dl (8.4-10.2); Carbon Dioxide 23 mmol/L (22-30); Chloride 113 mmol/L (98-107); Estimated Creatinine Clearance 38 ml/min; Glucose 101 mg/dl (70-99); Potassium 4.1 mmol/L (3.5-5.1); Sodium 143 mmol/L (135-145); Total Bilirubin 2.1 mg/dl (0.2-1.3); Total Protein 5.5 g/dl (6.3-8.2); eGFR 58.53
[2024-07-31] MEDS: PROTONIX 40 MG PO ×2 (08:42→19:16)
[2024-07-31] MEDS: LASIX PO (08:42)
--- NOTE | 2024-07-31 11:55 | PTCARENOTE ---
pt left floor for Colonoscopy
[2024-07-31] MEDS: FERRLECIT 110 MG IV (13:36)
--- NOTE | 2024-07-31 16:10 | W.PN.HOSP.TC ---
Today's Communication/Plan
-
Monitor hemoglobin
Advance diet
Assessment / Plan
Assessment / Plan
Impression:
Presentation with exertional dyspnea, abdominal discomfort.
Symptomatic acute blood loss anemia secondary in the settings of gastrointestinal hemorrhage secondary to Xarelto
Iron deficiency
YARA secondary to anemia
Other conditions:
Ventricular tachycardia status post AICD implant 07/15
Chronic CHF preserved EF
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
BPH.
Subclinical hypothyroidism
Plan:
Acute blood loss anemia
Presents with hemoglobin of 5
Symptomatic with exertional dyspnea.
Hemodynamically stable with no evidence of acute/brisk blood loss
Rectal examination with brown heme positive stool.
Prior history of PUD with endoscopy 01/14 at that time nonbleeding ulcer
EGD 07/30 with no apparent source
Colonoscopy 07/31 with no source of bleeding. Polyp removed
Oral PPI
Possible differential AVM (patient with moderate aortic stenosis). Plan is for outpatient capsule endoscopy.
Hemoglobin noted down to 7.8 with no active bleeding. Monitor further. Hold Xarelto for now.
Transfused 2 units of packed red blood cells with appropriate response in hemoglobin above 8.
Follow hemoglobin
Holding Xarelto and aspirin
Iron deficiency, initiated on IV iron
Cardiovascular:
Chronic CHF preserved EF.
History of VT status post AICD implant 07/15.
Volume status compensated
Monitor with transfusions.
Resume metoprolol
Resume Lasix
YARA on CKD stage IIIb.
Secondary to prerenal stimulator with acute anemia.
Creatinine trending down 1.8�1.5�1.3
Subclinical hypothyroidism
TSH now above 10. Normal free T4
Plan is to start levothyroxine supplementation upon discharge with follow-up TFTs as outpatient
Full code
DVT prophylaxis mechanical
Anticipated Discharge: Within 24 hours
Subjective/Interval History
-
Date of Service: July 31, 2024
Objective Data
-
Labs:
Laboratory Results
07/31/24
05:37
WBC 8.1
Hgb 7.8 L
Hct 24.3 L
Plt Count 216
Sodium 143
Potassium 4.1
Chloride 113 H
Carbon Dioxide 23
BUN 16
Creatinine 1.2
Glucose 101 H
Calcium 8.7
Total Bilirubin 2.1 H
AST 21
ALT 11
Alkaline Phosphatase 123
Vital Signs:
Vital Signs
Temp Pulse Resp BP Pulse Ox
97.5 F 74 16 152/81 100
07/31/24 14:00 07/31/24 15:30 07/31/24 15:30 07/31/24 15:30 07/31/24 15:30
I&O
07/30/24 07/31/24 08/01/24
06:59 06:59 06:59
Intake Total 480 / 480 365 / 365
Output Total 1100 / 1100
Balance -620 / -620 365 / 365
Physical Exam
-
General: Well Developed and No Apparent Distress
HEENT: Normocephalic, Atraumatic and Moist Mucous Membranes
Respiratory: Rales
Cardiac: Regular Rhythm and S1/S2; Negative Murmur, Rub or Gallop
GI: Soft, Nontender, Nondistended and Normal Bowel Sounds; Negative Organomegaly
Rectal: Deferred by Provider
Musculoskeletal: No Clubbing, No Cyanosis and No Edema
Skin: Negative Rash
Neuro: Nonfocal/Grossly Intact
[2024-07-31] MEDS: LIPITOR 40 MG PO (21:15)
[2024-07-31] MEDS: PROSCAR 5 MG PO (21:15)
[2024-07-31] MEDS: TOPROL XL 50 MG PO (21:16)
[2024-08-01 05:49] VITALS: BMI 24.7
[2024-08-01 08:15] LABS: % Basophils 0.7 % (0-2); % Eosinophils 2.8 % (0-6); % Immature Granulocytes 0.3 % (0-0.5); % Lymphocytes 20.9 % (20.5-51.1); % Monocytes 16.4 % (1.7-9.3); % Neutrophils 58.9 % (42.2-75.2); Absolute Basophils 0.1 10^3/uL (0-0.2); Absolute Eosinophils 0.3 10^3/uL (0-0.7); Absolute Lymphocytes 2.1 10^3/uL (1.2-3.4); Absolute Monocytes 1.6 10^3/uL (0.1-0.6); Absolute Neutrophils 5.8 10^3/uL (1.4-6.5); Hematocrit 27.9 % (39.0-52.0); Hemoglobin 8.5 g/dL (13.0-18.0); Mean Corp Hgb Conc. 30.5 g/dL (33.0-37.0); Mean Corpuscular Hgb 26.6 pg (27.0-31.0); Mean Corpuscular Volume 87.5 fL (80.0-94.0); Mean Platelet Volume 10.6 fL (7.4-10.4); Nucleated Red Blood Cells % 1.9 % (-); Platelet Count 241 10^3/uL (130-400); Red Blood Cell Count 3.19 10^6/uL (4.70-6.10); Red Cell Dist. Width 19.9 % (11.5-14.5); White Blood Cell Count 9.9 10^3/uL (4.8-10.8)
[2024-08-01 08:23] VITALS: BP 146/61
[2024-08-01 08:46] LABS: ALT (SGPT) 11 U/L (0-50); AST (SGOT) 21 U/L (17-59); Albumin 3.3 g/dl (3.5-5.0); Alkaline Phosphatase 126 U/L (38-126); Blood Urea Nitrogen 17 mg/dl (9-20); Calcium 9.1 mg/dl (8.4-10.2); Carbon Dioxide 27 mmol/L (22-30); Chloride 112 mmol/L (98-107); Estimated Creatinine Clearance 32 ml/min; Glucose 110 mg/dl (70-99); Potassium 4.3 mmol/L (3.5-5.1); Sodium 144 mmol/L (135-145); Total Bilirubin 1.7 mg/dl (0.2-1.3); Total Protein 5.8 g/dl (6.3-8.2); eGFR 48.65
[2024-08-01] MEDS: LASIX 40 MG PO (09:11)
[2024-08-01] MEDS: PROTONIX 40 MG PO (09:11)
[2024-08-01] MEDS: FLUSH (NSS) 1 FLUSH IV ×2 (09:12→14:22)
--- NOTE | 2024-08-01 11:29 | CM ---
Patient doing well in therapy, close to baseline. Will continue to watch for needs.
Plan: Case management will continue to follow and assist with discharge planning. Home, will watch for VN needs.
--- NOTE | 2024-08-01 12:50 | W.PN.GI.CBS2 ---
Addendum entered and electronically signed by Katia Christine Do, MD 08/01/24 12:57:
Task sent to Jennifer in our GI office to set up VCE
Correction he is know to Dr Britney Main in our office and will have appt FU with her. D/c paperwork updated
Original Note:
Today's Communication / Plan
-
Ok to resume xarelto today
Video capsule will be arranged OP basis and close FU with Dr Raman
Daughter and hospitalist updated.
Ok from GI perspective for hosp d/c today. GI will sign off please call for questions
Assessment / Plan
-
87 yo male with a PMH significant for Afib on Xarelto, HTN, CAD with prior CABG, HLD , V. tach status postcardiac catheterization with AICD 07/20/2024, right elbow cellulitis, diverticulitis/diverticulosis, paraesophageal hernia with obstruction s/p
repair and gastropexy 2021, gallstone pancreatitis s/p cholecystectomy in October 2021, colon polyps who we saw in December 2023 for symptomatic iron deficiency anemia found to have evidence of prior paraesophageal repair/gastropexy, nonbleeding
gastric ulcer with a clean ulcer base, atrophic mucosa in the antrum. Patient was placed on pantoprazole 40 mg twice daily for 8 weeks with a repeat endoscopy performed in March 2024 that showed variable Z-line, gastritis, normal duodenal bulb
and second portion of the duodenum. He was then reduced down to pantoprazole 40 mg daily. The patient had a recent admission and discharge for V. tach requiring AICD placement and atraumatic elbow injury with cellulitis requiring antibiotics. He
was discharged on 06/24/2024. He states that he has had approximately 3-week history of fatigue and weakness. He had outpatient lab work performed that showed a hemoglobin that was low and he proceeded come to the emergency room for further
evaluation. In the ER he had brown OB positive stool. His hemoglobin was found to be 5.9. We are asked to evaluate for same.
Impression:
Severe iron deficiency anemia with OB positive brown stool
--> Hemoglobin on presentation 5.9 status post 2 units packed red blood cells and iron currently with hemoglobin 8.3
--> Patient had both EGD and colonoscopy in 2019 which was unrevealing for source of chronic iron deficiency.
A-fib on Xarelto, last dose 07/27/2024 evening
History of CAD prior CABG on aspirin 81 mg daily
Prior history of gastric ulcer 12/2023 treated with PPI twice daily status post repeat EGD 03/2024 with resolution, continues on daily PPI.
Plan:
- Tolerating regular diet
- EGD/colonoscopy on this admission without source of anemia
- Hemoglobin stable
- Ok to resume xarelto today and observe
- Will arrange OP VCE in our office and close FU with Dr Raman
- C/w PPI daily
Daughter Evangelina updated via phone by me. GI will sign off please call for questions
Subjective
Subjective
Date of Service: August 01, 2024
Tolerating diet. Denies abd pain and Hbg stable. No further BM in past 2 days
Objective
Data Reviewed
Laboratory Data:
Laboratory Results
08/01/24 07:36
08/01/24 07:36
Laboratory Results
Total Bilirubin 1.7 mg/dl (0.2-1.3) H 08/01/24 07:36
AST 21 U/L (17-59) 08/01/24 07:36
ALT 11 U/L (0-50) 08/01/24 07:36
Alkaline Phosphatase 126 U/L (38-126) 08/01/24 07:36
Vital Signs and I&O:
Vital Signs
Temp Pulse Resp BP Pulse Ox
97.9 F 65 18 146/61 96
08/01/24 08:23 08/01/24 09:11 08/01/24 08:23 08/01/24 09:11 08/01/24 09:07
I&O
07/31/24 08/01/24 08/02/24
06:59 06:59 06:59
Intake Total 365 / 365 660 / 660
Output Total 325 / 325 200 / 200
Balance 365 / 365 335 / 335 -200 / -200
Physical Exam
Physical Exam
GEN: No acute distress, conversant, pleasant hard of hearing thin body habitus
HEENT: anicteric, extraocular movements intact, clear oropharynx without exudates
GI: soft, non-distended, not tender to palpation, normal active bowel sounds, no hepatosplenomegaly
EXT: warm, well perfused, no edema bilaterally
NEURO: AAOx3, non-focal
[2024-08-01] MEDS: FERRLECIT 110 MG IV (14:22)
--- NOTE | 2024-08-01 14:35 | W.DS.TRANS ---
Addendum entered and electronically signed by Gildardo Baker MD 08/01/24 16:47:
Levothyroxine initiated
Original Note:
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
-
Discharge Instructions:
Discharge Diagnosis/Procedures Impression:
Presentation with exertional dyspnea, abdominal
discomfort.
Symptomatic acute blood loss anemia secondary in
the settings of gastrointestinal hemorrhage
secondary to Xarelto
Iron deficiency
YARA secondary to anemia
Other conditions:
Ventricular tachycardia status post AICD implant
07/15
Chronic CHF preserved EF
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
BPH.
Subclinical hypothyroidism
Diet Regular
Blood Work cbc, BMP in one week
Instructions:
Stand-Alone Forms:
Changes to Home Medications: Yes
Discharge Medications:
DC Medications w/original date entered in [employer]
finasteride 5 mg tablet 5 mg PO HS Urinary issue 03/05/20
cyanocobalamin (vitamin B-12) 1,000 mcg tablet 1,000 mcg PO DAILY Supplement 01/25/21
atorvastatin 40 mg tablet 40 mg PO HS High Cholesterol 12/19/22
magnesium oxide 500 mg PO DAILY Supplement 12/31/23
zinc sulfate 50 mg zinc (220 mg) tablet 50 mg PO DAILY Supplement 12/31/23
pantoprazole 40 mg tablet,delayed release 40 mg PO DAILY Gastrointestinal Issue 02/28/24
Lactobac no.2-Bifidobac no.1-S. thermo 112.5 billion cell capsule (Visbiome) 1 cap PO DAILY Gastrointestinal Issue ##0 06/18/24
ascorbic acid (vitamin C) 1,000 mg tablet 1,000 mg PO DAILY Supplement 06/18/24
rivaroxaban 15 mg tablet 15 mg PO HS Blood Clot Prevention/Tx 06/18/24
furosemide 40 mg tablet (Lasix) 40 mg PO DAILY #30 tabs 06/24/24
duloxetine 40 mg capsule,delayed release 40 mg PO DAILY 07/28/24
metoprolol succinate 50 mg tablet,extended release 24 hr 50 mg PO HS 07/28/24
polyethylene glycol 3350 17 gram oral powder packet (Miralax) 17 g PO DAILYPRN PRN constipation 07/28/24
Home Medication Changes
ASA stopped
Pending Results: No
[2024-08-01] MEDS: TYLENOL 650 MG PO (15:05)
[2024-08-01 15:36] VITALS: BP 127/74
--- NOTE | 2024-08-01 16:12 | PTCARENOTE ---
Pt AAO x3, very MORONGO. JULES well, OOB to chair with assist x1/walker, kallie well. VSS. ON room air- pulse ox 96%, no SOB noted. Abd soft, rounded, kallie PO well. Voids clear yellow urine in urinal. Afebrile; skin warm and dry. pt for DC later this
shift. Will continue to monitor.
== END 2024-08-01 18:37 | disposition home or self-care (01) | DRG 811 ==
LOC: 4 EAST ACU 19:04
PROVIDERS: Clinical Nurse Specialist Family Health; Emergency Medicine; ADMITTING PHYSICIAN Internal Medicine; ATTENDING PHYSICIAN Internal Medicine; CONSULT PHYSICIAN Internal Medicine; EMERGENCY PHYSICIAN Emergency Medicine; FAMILY PHYSICIAN Family Medicine
PROC: 30233N1 Transfusion of Nonautologous Red Blood Cells into Peripheral Vein, Percutaneous Approach (ICD-10-PCS; 2024-07-28)
PROC: 0DB98ZX Excision of Duodenum, Via Natural or Artificial Opening Endoscopic, Diagnostic (ICD-10-PCS; 2024-07-30)
PROC: 0DB68ZX Excision of Stomach, Via Natural or Artificial Opening Endoscopic, Diagnostic (ICD-10-PCS; 2024-07-30)
PROC: 0DBK8ZZ Excision of Ascending Colon, Via Natural or Artificial Opening Endoscopic (ICD-10-PCS; 2024-07-31)
DX: D62 Acute posthemorrhagic anemia (principal); K57.33 Diverticulitis of large intestine without perforation or abscess with bleeding; I13.0 Hypertensive heart and chronic kidney disease with heart failure and stage 1 through stage 4 chronic kidney disease, or unspecified chronic kidney disease; I47.20 Ventricular tachycardia, unspecified; N17.9 Acute kidney failure, unspecified; I50.32 Chronic diastolic (congestive) heart failure; D68.32 Hemorrhagic disorder due to extrinsic circulating anticoagulants; E78.00 Pure hypercholesterolemia, unspecified; I25.10 Atherosclerotic heart disease of native coronary artery without angina pectoris; I35.0 Nonrheumatic aortic (valve) stenosis; I48.0 Paroxysmal atrial fibrillation; N18.32 Chronic kidney disease, stage 3b; N40.0 Benign prostatic hyperplasia without lower urinary tract symptoms; I95.89 Other hypotension; T45.515A Adverse effect of anticoagulants, initial encounter; E03.8 Other specified hypothyroidism; D12.2 Benign neoplasm of ascending colon; K64.8 Other hemorrhoids; K31.89 Other diseases of stomach and duodenum; K22.89 Other specified disease of esophagus; F32.A Depression, unspecified; Z96.653 Presence of artificial knee joint, bilateral; Z95.810 Presence of automatic (implantable) cardiac defibrillator; Z95.1 Presence of aortocoronary bypass graft; Z87.891 Personal history of nicotine dependence; Z86.73 Personal history of transient ischemic attack (TIA), and cerebral infarction without residual deficits; Z79.01 Long term (current) use of anticoagulants; Z79.899 Other long term (current) drug therapy
CPT/HCPCS: 88305; 80053; 82248; 82607; 82728; 82746; 83540; 83550; 84439; 84443; 85025; 86850; 86900; 86901; 86920; 88342; 96374; 97163; 97167; 99285; J2916; P9016

== ENCOUNTER 2024-09-17 06:14 | Day surgery (SDC) | payer OTHER, SELFPAY ==
[2024-09-17 08:40] VITALS: BMI 21.1
[2024-09-17 08:45] VITALS: BP 126/77; BMI 21.1
[2024-09-17 12:30] VITALS: BP 102/63
--- NOTE | 2024-09-17 16:06 | DOWNTIME ---
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 Downtime documentation of patient's care, including medication administrations, has been reconciled in the electronic record per guidelines. Refer to the
patient's paper chart under the miscellaneous tab to see printed paper medication records and downtime forms.
== END 2024-09-17 14:59 | disposition home or self-care (01) ==
LOC: GI 06:14
PROVIDERS: ATTENDING PHYSICIAN Internal Medicine
DX: D50.9 Iron deficiency anemia, unspecified (principal); K31.89 Other diseases of stomach and duodenum; K31.819 Angiodysplasia of stomach and duodenum without bleeding; K22.89 Other specified disease of esophagus
CPT/HCPCS: 43255

== ENCOUNTER → 2024-09-23 15:02 | Outpatient (REF) | payer OTHER, SELFPAY | LOC: RAD 15:02 | PROVIDERS: ATTENDING PHYSICIAN Internal Medicine Cardiovascular Disease | DX: I48.0 Paroxysmal atrial fibrillation (principal) | CPT/HCPCS: 75572; Q9967 ==

== ENCOUNTER → 2024-11-14 10:21 | Outpatient (REF) | payer OTHER, SELFPAY | LOC: HWRAD 10:21 | PROVIDERS: ATTENDING PHYSICIAN Anesthesiology Pain Medicine; FAMILY PHYSICIAN Family Medicine | DX: M47.816 Spondylosis without myelopathy or radiculopathy, lumbar region (principal); M54.50 Low back pain, unspecified | CPT/HCPCS: 72131 ==

== ENCOUNTER 2024-11-18 10:30 | Inpatient (IN) | payer OTHER, SELFPAY ==
[2024-11-04 13:34] VITALS: BMI 26.5
[2024-11-04 14:10] LABS: Hematocrit 37.6 % (39.0-52.0); Hemoglobin 11.8 g/dL (13.0-18.0); Mean Corp Hgb Conc. 31.4 g/dL (33.0-37.0); Mean Corpuscular Volume 91.7 fL (80.0-94.0); Nucleated Red Blood Cells % 0 % (-); Platelet Count 236 10^3/uL (130-400); Red Cell Dist. Width 16.9 % (11.5-14.5)
[2024-11-04 14:16] LABS: INR 2.15; PT 24.1 Sec (11.4-14.6)
[2024-11-04 14:37] LABS: ALT (SGPT) 13 U/L (0-50); AST (SGOT) 22 U/L (17-59); Albumin 4.9 g/dl (3.5-5.0); Alkaline Phosphatase 131 U/L (38-126); Blood Urea Nitrogen 23 mg/dl (9-20); Calcium 9.3 mg/dl (8.4-10.2); Carbon Dioxide 25 mmol/L (22-30); Chloride 108 mmol/L (98-107); Estimated Creatinine Clearance 31 ml/min; Glucose 119 mg/dl (70-99); Potassium 4.8 mmol/L (3.5-5.1); Sodium 143 mmol/L (135-145); Total Protein 8.2 g/dl (6.3-8.2); eGFR 48.65
[2024-11-18] VITALS (13 sets, daily range): BP systolic 121–153; BP diastolic 75–90
[2024-11-18] MEDS: NSS 500 IV (06:48)
[2024-11-18 11:12] LABS: ACT-LR - POC > 397 Seconds (116-155)
[2024-11-18 11:12] LABS: ACT-LR - POC > 397 Seconds (116-155)
[2024-11-18 11:12] LABS: ACT-LR - POC > 397 Seconds (116-155)
[2024-11-18 11:12] LABS: ACT-LR - POC > 397 Seconds (116-155)
--- NOTE | 2024-11-18 11:20 | ITS.CL.ABL ---
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
Ablation
Procedure Report:
AFIB ablation / Watchman implantation:
Mr. Nickerson is a very pleasant 89 yr old gentleman, with symptomatic persistent AF, with CHADSVascc score of 7 on Rivaroxaban with h/o recurrent GI bleed is recommended a placement of Watchman with atrial fibrillation ablation.
Date of the Procedure:
11/18/2024
Indications:
Persistent atrial fibrillation, recurrent bleeding with high CHADSVasc score
Pre-Operative Diagnosis:
Persistent atrial fibrillation, recurrent bleeding with high CHADSVasc score
Post-Operative Diagnosis:
Persistent atrial fibrillation, recurrent bleeding with high CHADSVasc score
Procedure Performed:
Atrial fibrillation ablation with Pulsed-Field approach for pulmonary vein isolation
Posterior wall isolation
Atrial flutter � roof dependent with roof of the LA ablation
Mitral flutter ablation with Mitral isthmus ablation
Typical atrial flutter with Cavo Tricuspid isthmus ablation.
Left atrial appendage occlusion with Watchman implantation (27 mm Watchman FLX Pro left atrial appendage closure device)
Performing Physician:
Ablation and Watchman: Pierre Miller MD
ELISABET: Jona Meek M.D.
Assistants:
EP staff
Anesthesia:
See anesthesia records
Detailed Description of the Procedure:
Written informed consent was obtained from the patient after a full explanation of the risks and benefits of the procedure including the risks of sedation and anesthesia.
The patient was brought to the electrophysiology laboratory in stable condition in fasting state. Continuous electrocardiographic and hemodynamic monitoring was initiated.
The initial rhythm was atrial flutter.
The procedure site was meticulously prepared with surgical scrub and allowed to dry with no pooling. Sterile draping was applied to cover the procedure site. The image intensifier was draped with sterile bag and positioned over the patient. After
infusion of local anesthetic, vascular access was obtained under ultrasound guidance and sheaths were placed over guide wire as detailed below.
Sheath and Catheter Placement:
The following catheters / sheaths were placed
Sheaths:
��������� 17Fr steerable sheath (Hydrocapsuleadrive�, Deal Decor) in right femoral that later swapped to Watchman delivery sheath
��������� 9Fr in right femoral vein
Catheters:
��������� PIO HD Grid mapping catheter � at locations of RA, LA
��������� Farawave� PFA catheter
��������� ICE catheter �Kaufman ViewFlex - at locations of RA, SVC, and RV.
��������� Watchman catheter
��������� Bard Decapolar catheter.
Heparin bolus given and drip started.
Intracardiac ECHO:
An 8-Somali AcuNav intracardiac ECHO (ICE) probe was advanced through the 9-Somali sheath in the right femoral vein into the right atrium under fluoroscopic and ICE ultrasound image guidance and a baseline ECHO study was performed. The left atrial
size was dilated. There was moderate tricuspid regurgitation.
The aortic valve was grossly normal. There was normal left ventricular systolic functions. There is no pericardial effusion. All the four veins were identified and has flow identified. There was sluggish flow noted in the NGUYỄN. There was no NGUYỄN clot
noted.
During the procedure, ICE was used for monitoring of complications, guidance of trans-septal puncture, monitor the catheter position and tracking ablation lesions. No change in the pericardial space noted throughout the procedure.
Trans-septal Puncture:
Heparin was initiated and infused to maintain appropriate ACT. A pigtail guidewire was advanced through the 8-Somali sheath in the right femoral vein into the superior vena cava under fluoroscopic and ICE guidance. The 9-Somali sheath was exchanged
for a Faradrive sheath which was advanced into the superior vena cava. A trans-septal RF pigtail via Faradrive connect system was utilized to perform the trans-septal puncture. The apparatus was withdrawn until it was in contact with the fossa
ovalis. The position was adjusted based on fluoroscopy and ultrasound images from ICE. Under fluoroscopic, hemodynamic and ICE ultrasound guidance, left atrium was cannulated by applying RF energy. Once atrial septum was cannulated, the pigtail wire
was advanced through the needle into the left atrium. The guide wire was advanced into the left superior pulmonary vein. Both the sheath and the dilator was advanced into the left atrium. The dilator with the needle was withdrawn. Blood was
aspirated from the Faradrive sheath and arterial blood confirmed. The sheath was flushed. Saline injection noted into the left atrium on ICE. The mapping catheter was advanced in the sheath into the left pulmonary vein. Left atrial pressure was
measured.
3D Electroanatomic Mapping:
Using the HD Grid catheter advanced through sheath into the left atrium, an electroanatomic map (EAM) of the left atrium was created using Geoli.st Classifieds mapping system. The map was used for localization of catheter position and tacking of ablation
lesions.
The EAM of the left atrium showed 4 pulmonary veins with all 4 veins electrically connected to the body the LA. It showed scattered extensive scar on the posterior and anterior wall of the LA. The LA was mildly dilated in size.
The flutter was mapped that showed CL of 340 ms revolving around the left sided veins through the roof line.
Following the EAM, preparation were made for ablation.
Ablation:
Ablation # 1: Pulmonary vein Isolation:
Glycopyrrolate 0.2 mg was given prior to the placement of ablation. Using myZamana pulsed wave ablation system, pulmonary vein isolation was achieved. First the ablation catheter was placed in the LSPV and ostial ablation lesions were performed in a
counter clock stevenson approach all around the PV ostium circumferentially. Then the catheter was placed on the antral location and multiple ablation lesions were placed circumferentially on the antrum of the vein.
In the similar fashion, the LIPV were isolated.
Then the catheter was moved to right sided veins. The ostial and antral ablations were placed as noted above.
Ablation #2: Roof dependent flutter abaltion
The roof area was ablated using the disc shape of the Farapulse ablation catheter at the roof and the tachycardia terminated into a different tachycardia. It was 350 msec.
�
Ablation #3: Posterior wall isolation:
Using the pulsed field ablation catheter, the catheter was placed between left superior pulmonary vein and right severe pulmonary vein with series of overlapping ablation lesions placed.
Using the pulsed field ablation catheter, the catheter was placed on the posterior wall and moved around the posterior wall to have adequate contact and ablations were placed isolating the posterior wall.
Ablation #4: Mitral flutter ablation
The change in tachycardia and activation with Cl chage prompted the ablation of the Mitral ithsmus. Using the Farapulse ablation at the mitral isthmus a series of ablation were performed disconnecting the mitral isthmus and connecting the LIPV to
the mitral isthmus.
The tachycardia changed and now it was concentric on the CS catheter.
The LA was mapped in the tachycardia showing it is passively involved with most of the tachycardia was in the right atrium.
EPS and Confirmation of the PVI and bidirectional block:
Following achievement of entrance block at the pulmonary veins, pacing from the HD catheter in each of the four veins at 10 milliamps for 2 milliseconds showed entrance and exit block. All PVI were rechecked at the end of the case and remained
isolated. Entrance and exit block were demonstrated in all veins.
Post ablation Electroanatomic mapping:
Once ablation was completed, the EAM of the LA was done again in sinus rhythm with excellent demarcation of LA myocardium and isolated antral tissue. There was no significant scarring noted in the LA.
The NGUYỄN had healthy signals and was not isolated.
Watchman implantation:
Using the trans-septal RF pigtail, the Faradrive sheath was swapped with Watchman delivery sheath over the RF pigtail. A curved pig tail was advanced over the guide wire into the left atrium and the wire was removed.
Left atrial appendage atriography:
The pigtail was advanced into the NGUYỄN and was confirmed on fluoroscopy and ELISABET. The contrast was injected and the NGUYỄN shape was recorded in CABRAL /Caudal view (20/20 degrees). The size of the NGUYỄN was again checked and confirmed reviewing the ELISABET and
the fluoroscopy along with previously obtained CT scan images.
Watchman Deployment:
The Watchman delivery sheath was advanced into the NGUYỄN over the pigtail till the right marker was at the location of the orifice line marked on the screen. The pigtail was removed and the Watchman delivery system was advanced through the sheath into
the NGUYỄN till it was aligned with the outer sheath marker inside the NGUYỄN. The watchman sheath was clicked with the outer sheath. Once acceptable location achieved, the outer sheath was pulled back keeping the device steady at the NGUYỄN location till a
ball of the device was formed under fluoroscopic guidance. The whole system was advanced further into the NGUYỄN till adequate depth is achieved into the NGUYỄN. The NGUYỄN occluder was deployed and expanded adequately anchoring to the NGUYỄN. The device was
kept anchored with stable pressure to that location for 10 seconds.
The Watchman was noted to have shoulder out and was not completely inside the appendage and decision was made to recapture and implant deeper inside the NGUYỄN. The watchman was successfully recaptured and was adjusted to get a deeper location and
deployed as noted above. The new location has much better appearance and the device had minimal shoulder present now after the tug test.
The ELISABET image confirmed adequate expansion. The tug test was done that showed the device is anchored well and is not able to come out. The compression was 30%, 18% and 18% on the three sides. There was no significant leak noted on the Doppler via
ELISABET.
The device was deployed by unscrewing the Watchman device and releasing from the connecting wire. The wire was pulled back into the sheath and the sheath was pulled out of the LA.
Implanted device:
WATCHMAN FLX Pro � 27mm
Ablation #4: Right atrial typial atrial flutter ablation:
The watchman sheath was then pulled out of the LA into the RA. Watchman sheath was switched to Faradrive sheath again. The RA was mapped in the flutter and there was area of focal AT at the mouth of the CS noted and the typical flutter was noted
revolving around the tricuspid valve.
Patient was noted to be in atrial flutter 390 ms CL.
With anticipation of pulsed field energy deliver at the CTI, 100 mcg of Nitroglycerin was injected into the RA. �
The ablation was performed using Farawave� PFA catheter from the tricuspid annulus to the IVC ridge. The first application was done in Hyden formation placing the ablation catheter on the tricuspid isthmus to with ICE visualization. With first
ablation, the flutter terminated into sinus rhythm. Further ablation lesions were placed with the �Flower� shape on the CTI to the Eustachian ridge.
The flutter terminated into sinus rhythm.� �
- Post ablation HV interval was unchanged at 45msec
Procedure End
ICE /ELISABET study was done again that showed no epicardial accumulation that was unchanged from earlier. A repeated images showed no change in the pericardial space. The watchman was placed adequately without any movement. No complications noted.
Following the completion of the deployment, catheters were removed. Protamine 40 mg was given at the end of the procedure and ACT was checked repeatedly. The sheath was removed and hemostasis achieved with Figure of 8 and manual compression after
acceptable ACT is achieved.
Left atrial Pressure:
Pre ablation: Mean LA pressure was 21mmHg
Post ablation: Mean LA pressure was 18mmHg
Post ablation: Mean RA pressure was 10mmHg
Estimated Blood loss:
<10 cc
Specimens Removed:
None.
Implants / Devices:
None
Urine output:
None
Packs / Drains/ Tubes:
None
Instrument / Sponge Count Correct:
Yes
Complications of the Procedure:
None
Condition of Patient at Time of Transfer:
Hemodynamically stable with no neurological or vascular compromise.
Summary:
Successful atrial fibrillation ablation with Pulsed Field approach for pulmonary vein isolation and posterior wall isolation, atrial flutters (Roof dependent, mitral isthmus and CTI dependent) ablation.
Successful implantation of the left atrial occlusion device (WATCHMAN FLX Pro� 27mm)
Post procedure Plan for anticoagulation:
Continue Xarelto for 3 months.
Based on 3 months ELISABET, will plan to switch Xarelto to ASA 81 mg indefinitely.
[2024-11-18] MEDS: ANESTHETIC LOZENGE 1 LOZENGE PO (13:29)
[2024-11-18] MEDS: TYLENOL 650 MG PO (13:29)
--- NOTE | 2024-11-20 10:23 | W.PN.UPDATE ---
Update Note
Progress Note Update
The original intent for the admission order was for the inpatient order set following the watchman and ablation procedure.
== END 2024-11-18 15:30 | disposition home or self-care (01) | DRG 317 ==
LOC: CATH-IN 10:30
PROVIDERS: Internal Medicine Cardiovascular Disease; ADMITTING PHYSICIAN Internal Medicine Cardiovascular Disease; FAMILY PHYSICIAN Family Medicine
PROC: 4A0234Z Measurement of Cardiac Electrical Activity, Percutaneous Approach (ICD-10-PCS; 2024-11-18)
PROC: 02K83ZZ Map Conduction Mechanism, Percutaneous Approach (ICD-10-PCS; 2024-11-18)
PROC: 02583ZZ Destruction of Conduction Mechanism, Percutaneous Approach (ICD-10-PCS; 2024-11-18)
PROC: 4A023FZ Measurement of Cardiac Rhythm, Percutaneous Approach (ICD-10-PCS; 2024-11-18)
PROC: B24BZZ4 Ultrasonography of Heart with Aorta, Transesophageal (ICD-10-PCS; 2024-11-18)
PROC: 02L73DK Occlusion of Left Atrial Appendage with Intraluminal Device, Percutaneous Approach (ICD-10-PCS; 2024-11-18)
DX: I48.19 Other persistent atrial fibrillation (principal); I13.0 Hypertensive heart and chronic kidney disease with heart failure and stage 1 through stage 4 chronic kidney disease, or unspecified chronic kidney disease; I50.32 Chronic diastolic (congestive) heart failure; J84.9 Interstitial pulmonary disease, unspecified; I73.9 Peripheral vascular disease, unspecified; J44.9 Chronic obstructive pulmonary disease, unspecified; I48.3 Typical atrial flutter; N18.30 Chronic kidney disease, stage 3 unspecified; I47.20 Ventricular tachycardia, unspecified; I45.10 Unspecified right bundle-branch block; I25.10 Atherosclerotic heart disease of native coronary artery without angina pectoris; E03.9 Hypothyroidism, unspecified; I25.82 Chronic total occlusion of coronary artery; I34.81 Nonrheumatic mitral (valve) annulus calcification; I35.0 Nonrheumatic aortic (valve) stenosis; R26.2 Difficulty in walking, not elsewhere classified; N40.0 Benign prostatic hyperplasia without lower urinary tract symptoms; M19.90 Unspecified osteoarthritis, unspecified site; Z86.74 Personal history of sudden cardiac arrest; Z91.81 History of falling; Z86.73 Personal history of transient ischemic attack (TIA), and cerebral infarction without residual deficits; Z95.1 Presence of aortocoronary bypass graft; Z90.49 Acquired absence of other specified parts of digestive tract; Z79.01 Long term (current) use of anticoagulants; Z79.899 Other long term (current) drug therapy; Z87.19 Personal history of other diseases of the digestive system; Z95.810 Presence of automatic (implantable) cardiac defibrillator; Z87.891 Personal history of nicotine dependence
CPT/HCPCS: 93355; C1732; C1894; C1730; C1769; C1759; 33340; 36415; 80053; 85025; 85347; 85610; 86850; 86900; 86901; 93005; 93655; 93656; 93657; C1733; C1766; Q9967

== ENCOUNTER 2024-12-12 07:44 | Day surgery (SDC) | payer OTHER, SELFPAY ==
--- NOTE | 2024-12-12 10:02 | ITS.CL.CARDI ---
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
Cardioversion
Procedure Report:
Procedure: Direct current electrical cardioversion
Pre-operative diagnosis: Persistent atrial flutter
Post-operative diagnosis: Persistent atrial flutter status post DC cardioversion to sinus rhythm
Anesthesia: MAC
Attending Physician: Da Farley MD
Procedure Description: The patient was brought to the electrophysiology laboratory in the fasting state. Adherence to anticoagulation regimen was confirmed. Informed consent was obtained from the patient prior to the start of the procedure.
Electrodes were placed on the patient and connected to an external defibrillator. Monitoring of blood pressure, ECG tracings, and pulse oximetry was initiated. The pads were applied to the patient in the anterior and posterior positions. The patient
was sedated by the anesthesiologist. A 200 joule biphasic synchronized shock was delivered to the patient under MAC anesthesia. Sinus rhythm was successfully restored. The patient recovered uneventfully from MAC anesthesia. There were no immediate
post-procedure complications. The patient left the lab in good condition. The attending physician was present throughout the entire procedure.
Impression: Successful direct current cardioversion with druze of sinus rhythm after one 200 joule biphasic synchronized shock.
== END 2024-12-12 09:45 | disposition home or self-care (01) ==
LOC: CATH 07:44
PROVIDERS: ATTENDING PHYSICIAN Internal Medicine Cardiovascular Disease; FAMILY PHYSICIAN Family Medicine; REFERRING PHYSICIAN Internal Medicine
DX: I48.92 Unspecified atrial flutter (principal); I25.10 Atherosclerotic heart disease of native coronary artery without angina pectoris; I47.20 Ventricular tachycardia, unspecified; I50.32 Chronic diastolic (congestive) heart failure; Z79.01 Long term (current) use of anticoagulants; Z79.890 Hormone replacement therapy; Z79.899 Other long term (current) drug therapy
CPT/HCPCS: 92960; 93005

== ENCOUNTER 2025-02-18 07:01 | Day surgery (SDC) | payer OTHER, SELFPAY | END 2025-02-18 09:40 | disposition home or self-care (01) | LOC: CATH 07:01 | PROVIDERS: ATTENDING PHYSICIAN Internal Medicine Cardiovascular Disease; FAMILY PHYSICIAN Family Medicine; OTHER PHYSICIAN Internal Medicine | DX: I48.19 Other persistent atrial fibrillation (principal); I08.3 Combined rheumatic disorders of mitral, aortic and tricuspid valves; I11.0 Hypertensive heart disease with heart failure; I70.0 Atherosclerosis of aorta; I50.32 Chronic diastolic (congestive) heart failure; Z95.810 Presence of automatic (implantable) cardiac defibrillator; I25.10 Atherosclerotic heart disease of native coronary artery without angina pectoris; Z95.1 Presence of aortocoronary bypass graft; Z95.5 Presence of coronary angioplasty implant and graft; I45.2 Bifascicular block; I13.0 Hypertensive heart and chronic kidney disease with heart failure and stage 1 through stage 4 chronic kidney disease, or unspecified chronic kidney disease; N18.32 Chronic kidney disease, stage 3b; Z95.818 Presence of other cardiac implants and grafts | CPT/HCPCS: 93312; 93320; 93325 ==

== ENCOUNTER 2025-04-18 14:35 | Emergency (ER) | payer OTHER, SELFPAY ==
[2025-04-18 14:38] VITALS: BP 127/62
--- NOTE | 2025-04-18 15:22 | ED.GENMED ---
History of Present Illness
General
Chief Complaint: Abnormal Lab Value
Source: patient
Exam Limitations: none
Time Seen by Provider: 04/18/25 15:03
Nursing documentation reviewed up to this point in time: agreed with
History of Present Illness
History of Present Illness:
Patient is a 89-year-old male with past medical history of A-fib status post cardioversion, V. tach status post AICD implant he was admitted for GI bleed July 2024 CHF chronic kidney disease GI bleed anemia was sent to the ER today for low
hemoglobin. Patient had outpatient blood work last week which showed hemoglobin of 8.0. His family doctor sent him to the ER today. He has had some weakness and shortness of breath. He reports stool is dark at times.
He was admitted for GI bleed July 2024. He is no longer on blood thinners.
Past History
Past History
ED Past Medical History: Arrthythmia (afib), CHF, CVA, HTN, Hypercholesterolemia, [place] and Other (Anemia, Diverticulitis, Bowel obstruction, Anemia, Colitis, Ulcers, UTi)
ED Past Surgical History: Appendectomy, Cardiac (CABG) and Orthopedic (Bilateral knee replacement)
Patient has exhibited threatening behavior?: No
Social History
Tobacco: Non-smoker
Alcohol: None
Personal:
Living: alone
Employment: Retired
Phy Exam
General Physical Exam
General Presentation: no apparent distress
General age: appears stated age
General Skin: warm and dry
General Habitus: normal
General Mental: alert
General Hydration: appears well hydrated
Cardiovascular Exam
Cardiovascular Exam: regular rate/rhythm and normal peripheral pulses
Pulmonary Exam
Pulmonary Exam: lungs clear and no respiratory distress
Gastrointestinal Exam
Gastrointestinal Exam: other (brown stool heme negative )
Neurological Exam
Neurological Exam: alert and oriented x3
Musculoskeletal Exam
Musculoskeletal Exam: full ROM
Skin Exam
Skin Exam: normal color and warm/dry
Psychiatric Exam
Psychiatric Exam: normal mood/affect
Course
Orders/Labs/Results
Orders:
Orders
04/18/25 15:24
IV Insert/Care/Rem.- Treatment PRN
04/18/25 15:51
Electrocardiogram (*1) Stat
Reason for Study: Other
Other Reason for Exam: chest pain
EKG- Treatment ONCE
04/18/25 15:52
Type+Screen Urgent
Complete Blood Count/With Diff Urgent
Comprehensive Metabolic Panel Urgent
Abnormal Lab Results
04/18/25
15:52
RBC 3.23 L 10^6/uL
(4.70-6.10)
Hgb 8.0 L g/dL
(13.0-18.0)
Hct 26.7 L %
(39.0-52.0)
MCH 24.8 L pg
(27.0-31.0)
MCHC 30.0 L g/dL
(33.0-37.0)
RDW 16.2 H %
(11.5-14.5)
Absolute Monos (auto) 1.2 H 10^3/uL
(0.1-0.6)
Monocytes % 13.1 H %
(1.7-9.3)
BUN 26 H mg/dl
(9-20)
Creatinine 1.6 H mg/dL
(0.7-1.3)
Glucose 127 H mg/dl
(70-99)
Alkaline Phosphatase 155 H U/L
(38-126)
04/18/25 15:52
04/18/25 15:52
Vital Signs
Initial and Last Documented VS:
Initial Vital Signs
Temp Pulse Resp BP
97.5 F 78 16 127/62
04/18/25 14:38 04/18/25 14:38 04/18/25 14:38 04/18/25 14:38
Last Documented Vital Signs
Temp Pulse Resp BP
97.5 F 78 16 127/62
04/18/25 14:38 04/18/25 14:38 04/18/25 14:38 04/18/25 14:38
Administrative Director consulted with Physician
Administrative Director consulted with physician?: Yes
Name of Physician Consulted: Mary
MDM/Problems Addressed
Differential Diagnosis Includes:
Not limited to anemia; GI bleed
MDM/Problems Addressed:
As documented patient is an 89-year-old male presented to the ER for evaluation. He was sent by his family doctor for low hemoglobin of 8.0. He does have history of GI bleed in the past. Patient presents awake alert in no acute distress. He felt
mildly weak report mildly short of breath. Patient however very well-appearing in no acute distress brown stool is heme-negative. Patient's hemoglobin is 8.0 and from prior labs this is at baseline. He had 1 hemoglobin which was abnormally high
for him at 11.8 in October however all previous hemoglobins were mostly in the eights.
Case d/c with ED physician
With no active bleeding and no history of blood thinners will DC home with outpatient up with family doctor. All other labs reviewed patient has chronic kidney issues renal function at baseline
Chronic conditions affecting care:
afib /chf, gi bleed aicd no thinners
*Pulse Oximetry
SaO2: 96
Oxygen Mode of Delivery: Room air
Patient hypoxic: no
*Critical Care Note
Total Time (30-74mins, 75-104mins- exclusive of procedures): Not Applicable
ED Attending Note
-
Portions of this chart may have been created with voice recognition software.� Occasional wrong word or��sound alike� substitutions may have occurred due to the inherent limitations of voice recognition software.
Discharge Plan
Departure
Patient Disposition: Home (Routine Discharge)
Date of Disposition: 12/27/25
Time of Disposition: 17:05
Patient with high blood pressure during this ER visit?: No
Condition: Fair
Covid-19: Not Applicable
Discharge Problem:
Anemia
Prescriptions:
No Action
finasteride 5 MG tablet
5 mg PO HS
atorvastatin 40 mg tablet
40 mg PO HS
zinc sulfate 50 mg zinc (220 mg) Tablet
50 mg PO DAILY
magnesium oxide 500 mg magnesium Tablet
500 mg PO DAILY
pantoprazole 40 mg tablet,delayed release (DR/EC)
40 mg PO DAILY
ascorbic acid (vitamin C) 1,000 mg Tablet
1,000 mg PO DAILY
furosemide [Lasix] 40 mg tablet
40 mg PO DAILY Qty: 30 0RF
duloxetine 40 mg Capsule,Delayed Release(Dr/Ec)
40 mg PO DAILY
metoprolol succinate 50 mg tablet extended release 24 hr
50 mg PO DAILY
levothyroxine 75 mcg capsule
75 mcg PO DAILY Qty: 30 0RF
Vitamin D3
1,000 mg PO DAILY
rivaroxaban 15 mg Tablet
15 mg PO HS Qty: 30 0RF
Referrals:
Vida Miller MD [Family Provider, Family Practice]
Ac Arana MD [Active, Hematology / Oncology]
Activity Restrictions/Additional Instructions:
As discussed her hemoglobin today is 8.0. At this time we do not need a blood transfusion. Please however follow-up with your family doctor in the next 2 days for reevaluation. Return if any worsening of symptoms. Also as discussed you may
follow-up with hematology for further evaluation.
Interventions
Interventions:
*General Assessment Last Done: 04/18/25 14:38
*Neglect/Abuse Screening Last Done: 04/18/25 14:38
*ED COVID-19 Vaccine History Last Done: 04/18/25 14:38
*ED Influenza Vaccine History Last Done: 04/18/25 14:38
*Risk Screen - Suicide (C-SSRS) Last Done: 04/18/25 14:38
Discharge Date and Time
Print Language: SAMI
[2025-04-18 16:14] LABS: Hematocrit 26.7 % (39.0-52.0); Hemoglobin 8.0 g/dL (13.0-18.0); Mean Corp Hgb Conc. 30.0 g/dL (33.0-37.0); Mean Corpuscular Volume 82.7 fL (80.0-94.0); Nucleated Red Blood Cells % 0 % (-); Platelet Count 268 10^3/uL (130-400); Red Cell Dist. Width 16.2 % (11.5-14.5)
[2025-04-18 16:16] LABS: ALT (SGPT) 15 U/L (0-50); AST (SGOT) 19 U/L (17-59); Albumin 3.9 g/dl (3.5-5.0); Alkaline Phosphatase 155 U/L (38-126); Blood Urea Nitrogen 26 mg/dl (9-20); Calcium 8.6 mg/dl (8.4-10.2); Carbon Dioxide 29 mmol/L (22-30); Chloride 105 mmol/L (98-107); Glucose 127 mg/dl (70-99); Potassium 4.2 mmol/L (3.5-5.1); Sodium 140 mmol/L (135-145); Total Protein 6.7 g/dl (6.3-8.2); eGFR 41.19
== END 2025-04-18 17:21 | disposition home or self-care (01) ==
LOC: EMR 14:35
PROVIDERS: Nurse Practitioner; EMERGENCY PHYSICIAN Emergency Medicine; FAMILY PHYSICIAN Family Medicine
DX: D64.9 Anemia, unspecified (principal); I48.91 Unspecified atrial fibrillation; I50.9 Heart failure, unspecified; I13.0 Hypertensive heart and chronic kidney disease with heart failure and stage 1 through stage 4 chronic kidney disease, or unspecified chronic kidney disease; N18.9 Chronic kidney disease, unspecified; Z95.810 Presence of automatic (implantable) cardiac defibrillator
CPT/HCPCS: 99284; 80053; 85025; 86850; 86900; 86901; 93005